=== PATIENT | female | born 1970 | race Caucasian/White ===

== ENCOUNTER 2018-09-10 22:26 | Emergency (ER) | payer MEDICAID ==
[2018-09-10 23:16] VITALS: BP 180/97
[2018-09-11] MEDS ORDERED: BSS OU ONE (00:18)
[2018-09-11] MEDS ORDERED: TETRACAINE 0.5% OU ONE (00:18)
[2018-09-11] MEDS ORDERED: FUL-GLO OP ONE ×2 (00:18→00:25)
[2018-09-11] MEDS ORDERED: BSS ONE (00:25)
[2018-09-11] MEDS ORDERED: TETRACAINE 0.5% ONE (00:25)
--- NOTE | 2018-09-11 00:29 | Emergency Department Report ---
ED Eye Problem HPI - General Chief complaint: Eye Problems Stated complaint: EYE PAIN Time Seen by Provider: 09/11/18 00:10 Source: patient Mode of arrival: Ambulatory Limitations: No Limitations - History of Present Illness MD chief complaint: eye pain -: hour(s) (10) Location: right eye If Injury: none Eye Symptoms: redness, pain Severity: mild, moderate If Pain, Quality: aching Consistency: constant Associated Symptoms: none Treatments Prior to Arrival: none - Related Data Previous Rx's Medication Instructions Recorded Last Taken Type Ketorolac Tromethamine [Acular] 1 - 2 drops OS Q6H PRN #1 bottle 09/11/18 Unknown Rx Tobramycin [Tobrex] 1 drop OP Q4H #1 bottle 09/11/18 Unknown Rx Allergies Allergy/AdvReac Type Severity Reaction Status Date / Time Penicillins Allergy Itching Verified 09/10/18 23:16 ED Review of Systems ROS: Stated complaint: EYE PAIN Other details as noted in HPI Constitutional: denies: chills, fever Eyes: eye pain. denies: eye discharge, vision change ENT: denies: ear pain, throat pain Respiratory: denies: cough, shortness of breath, wheezing Cardiovascular: denies: chest pain, palpitations Endocrine: no symptoms reported Gastrointestinal: denies: abdominal pain, nausea, diarrhea Genitourinary: denies: urgency, dysuria, discharge Musculoskeletal: denies: back pain, joint swelling, arthralgia Skin: denies: rash, lesions Neurological: denies: headache, weakness, paresthesias Psychiatric: denies: anxiety, depression Hematological/Lymphatic: denies: easy bleeding, easy bruising ED Past Medical Hx - Past Medical History Hx Hypertension: Yes Hx Diabetes: Yes - Surgical History Additional Surgical History: Hysterectomy - Social History Smoking Status: Never Smoker Substance Use Type: None - Medications Home Medications: Home Medications Medication Instructions Recorded Confirmed Last Taken Type Ketorolac Tromethamine [Acular] 1 - 2 drops OS Q6H PRN #1 bottle 09/11/18 Unknown Rx Tobramycin [Tobrex] 1 drop OP Q4H #1 bottle 09/11/18 Unknown Rx ED Physical Exam - General Limitations: No Limitations General appearance: alert, in no apparent distress - Head Head exam: Present: atraumatic, normocephalic - Eye Eye exam: Present: normal appearance, PERRL, EOMI Pupils: Present: normal accommodation, other (increased dosing of uptake to the right. I area with the edge of the contact would be going from 3:00 to 9:00 lower aspect of the. The small area of corneal abrasion was obtained to proximal aspect of the iris as well. Normal left blepharitis. No foreign bodies were appreciated.) - ENT ENT exam: Present: normal exam, mucous membranes moist, TM's normal bilaterally - Neck Neck exam: Present: normal inspection, full ROM. Absent: lymphadenopathy, thyromegaly - Respiratory Respiratory exam: Present: normal lung sounds bilaterally. Absent: respiratory distress, rales, rhonchi, chest wall tenderness, accessory muscle use - Cardiovascular Cardiovascular Exam: Present: regular rate, normal rhythm. Absent: systolic murmur, diastolic murmur, rubs, gallop - GI/Abdominal GI/Abdominal exam: Present: soft, normal bowel sounds - Extremities Exam Extremities exam: Present: normal inspection - Back Exam Back exam: Present: normal inspection - Neurological Exam Neurological exam: Present: alert, oriented X3 - Psychiatric Psychiatric exam: Present: normal affect, normal mood - Skin Skin exam: Present: warm, dry, intact, normal color. Absent: rash ED Course Vital Signs 09/10/18 09/10/18 22:30 23:10 Temperature 98.1 F 98.1 F Pulse Rate 91 H 78 Respiratory 18 18 Rate Blood Pressure 196/105 180/97 O2 Sat by Pulse 100 100 Oximetry Critical care attestation.: If time is entered above; I have spent that time in minutes in the direct care of this critically ill patient, excluding procedure time. ED Disposition Clinical Impression: Corneal abrasion Disposition: -01 TO HOME OR SELFCARE Is pt being admited?: No Does the pt Need Aspirin: No Condition: Stable Instructions: Corneal Abrasion (ED) Referrals: PRIMARY CARE, [Primary Care Provider] - 3-5 Days SHANE MARTIN MD [Staff Physician] - [facility]
== END 2018-09-11 01:13 | disposition home or self-care (01) ==
LOC: ED 22:26
DX: S05.01XA Injury of conjunctiva and corneal abrasion without foreign body, right eye, initial encounter (principal); I10 Essential (primary) hypertension; E11.9 Type 2 diabetes mellitus without complications; X58.XXXA Exposure to other specified factors, initial encounter; Y93.89 Activity, other specified; Y92.89 Other specified places as the place of occurrence of the external cause; Y99.8 Other external cause status

== ENCOUNTER 2018-11-02 11:00 | Emergency (ER) | payer MEDICAID ==
--- NOTE | 2018-11-02 11:09 | Emergency Department Report ---
Blank Doc - Documentation Documentation: This is a 53-year-old female that presents with right lower abdominal pain with nausea x1 day. Denies any vomiting. This initial assessment/diagnostic orders/clinical plan/treatment(s) is/are subject to change based on patient's health status, clinical progression and re-assessment by fellow clinical providers in the ED. Further treatment and workup at subsequent clinical providers discretion. Patient/guardians urged not to elope from the ED as their condition may be serious if not clinically assessed and managed. Initial orders include: 1- Patient sent to [facility] for further evaluation and treatment 2- labs 3- ua
--- NOTE | 2018-11-02 11:59 | Emergency Department Report ---
ED Abdominal Pain HPI - General Chief Complaint: Abdominal Pain Stated Complaint: RT SIDE INJURY/PAIN Time Seen by Provider: 11/02/18 11:08 Source: patient Mode of arrival: Ambulatory Limitations: No Limitations - History of Present Illness Initial Comments: This is a 48-year-old female presents with right sided abdominal pain since last night. Patient also reports a headache, nausea, and weakness. She reports pain as a burning sensation to the right side of abdomen leading to right thigh. Past medical history of diabetes and hypertension. Denies chest pain, urinary frequency, urgency, dysuria, hematuria, vaginal discharge or vaginal bleeding, or pelvic pain. MD Complaint: abdominal pain Onset/Timin -: days(s) Location: RUQ, RLQ Radiation: other (RLE) Severity scale (0 -10): 5 Quality: burning Consistency: constant Improves With: nothing Worsens With: nothing Associated Symptoms: nausea. denies: vomiting, diarrhea, fever, chills, constipation, dysuria, hematemesis, hematochezia, melena, hematuria, anorexia, syncope - Related Data Previous Rx's Medication Instructions Recorded Last Taken Type Ketorolac Tromethamine [Acular] 1 - 2 drops OS Q6H PRN #1 bottle 09/11/18 Unknown Rx Tobramycin [Tobrex] 1 drop OP Q4H #1 bottle 09/11/18 Unknown Rx Enalapril Maleate [Vasotec] 20 mg PO DAILY #30 tablet 11/02/18 Unknown Rx Phenazopyridine [Pyridium] 200 mg PO TID #6 tab 11/02/18 Unknown Rx Sulfamethoxazole/Trimethoprim 1 each PO BID #6 tablet 11/02/18 Unknown Rx [Bactrim DS TAB] Allergies Allergy/AdvReac Type Severity Reaction Status Date / Time Penicillins Allergy Itching Verified 11/02/18 11:02 ED Review of Systems ROS: Stated complaint: RT SIDE INJURY/PAIN Other details as noted in HPI Constitutional: denies: chills, fever Respiratory: denies: cough, shortness of breath, wheezing Cardiovascular: denies: chest pain, palpitations Gastrointestinal: abdominal pain, nausea. denies: vomiting, diarrhea Genitourinary: denies: urgency, dysuria, discharge Musculoskeletal: arthralgia (right thigh). denies: back pain, joint swelling Skin: denies: rash, lesions Neurological: denies: headache, weakness, paresthesias ED Past Medical Hx - Past Medical History Previous Medical History?: Yes Hx Hypertension: Yes Hx Diabetes: Yes - Surgical History Past Surgical History?: Yes Additional Surgical History: Hysterectomy - Social History Smoking Status: Never Smoker Substance Use Type: None - Medications Home Medications: Home Medications Medication Instructions Recorded Confirmed Last Taken Type Ketorolac Tromethamine [Acular] 1 - 2 drops OS Q6H PRN #1 bottle 09/11/18 Unknown Rx Tobramycin [Tobrex] 1 drop OP Q4H #1 bottle 09/11/18 Unknown Rx Enalapril Maleate [Vasotec] 20 mg PO DAILY #30 tablet 11/02/18 Unknown Rx Phenazopyridine [Pyridium] 200 mg PO TID #6 tab 11/02/18 Unknown Rx Sulfamethoxazole/Trimethoprim 1 each PO BID #6 tablet 11/02/18 Unknown Rx [Bactrim DS TAB] ED Physical Exam - General Limitations: No Limitations General appearance: alert, in no apparent distress - Respiratory Respiratory exam: Present: normal lung sounds bilaterally. Absent: respiratory distress - Cardiovascular Cardiovascular Exam: Present: regular rate, normal rhythm. Absent: systolic murmur, diastolic murmur, rubs, gallop - GI/Abdominal GI/Abdominal exam: Present: soft, tenderness (right lower quadrant and left lower quadrant, and no ecchymosis), normal bowel sounds. Absent: distended, guarding, rebound, rigid, organomegaly, mass, bruit, pulsatile mass, hernia - Back Exam Back exam: Absent: CVA tenderness (R), CVA tenderness (L) - Neurological Exam Neurological exam: Present: alert, oriented X3, normal gait - Psychiatric Psychiatric exam: Present: normal affect, normal mood - Skin Skin exam: Present: warm, dry, intact, normal color. Absent: rash ED Course Vital Signs 11/02/18 11/02/18 11/02/18 11:07 13:15 13:35 Temperature 98.1 F Pulse Rate 74 Respiratory 16 16 16 Rate Blood Pressure 199/94 Blood Pressure [Right] O2 Sat by Pulse 99 Oximetry 11/02/18 11/02/18 11/02/18 14:05 14:57 15:50 Temperature Pulse Rate 62 Respiratory 16 Rate Blood Pressure 204/101 Blood Pressure 183/87 [Right] O2 Sat by Pulse Oximetry ED Medical Decision Making - Lab Data Result diagrams: 11/02/18 11:19 11/02/18 11:19 Lab Results 11/02/18 11/02/18 11/02/18 Range/Units 11:19 11:19 11:31 WBC 4.9 (4.5-11.0) K/mm3 RBC 5.38 H (3.65-5.03) M/mm3 Hgb 14.4 H (10.1-14.3) gm/dl Hct 43.0 H (30.3-42.9) % MCV 80 (79-97) fl MCH 27 L (28-32) pg MCHC 34 (30-34) % RDW 13.4 (13.2-15.2) % Plt Count 260 (140-440) K/mm3 Lymph % (Auto) 35.5 H (13.4-35.0) % Reagan % (Auto) 4.7 (0.0-7.3) % Eos % (Auto) 1.4 (0.0-4.3) % Baso % (Auto) 0.4 (0.0-1.8) % Lymph # 1.8 (1.2-5.4) K/mm3 Reagan # 0.2 (0.0-0.8) K/mm3 Eos # 0.1 (0.0-0.4) K/mm3 Baso # 0.0 (0.0-0.1) K/mm3 Seg Neutrophils % 58.0 (40.0-70.0) % Seg Neutrophils # 2.9 (1.8-7.7) K/mm3 Sodium 140 (137-145) mmol/L Potassium 3.6 (3.6-5.0) mmol/L Chloride 99.5 (98-107) mmol/L Carbon Dioxide 29 (22-30) mmol/L Anion Gap 15 mmol/L BUN 9 (7-17) mg/dL Creatinine 0.5 L (0.7-1.2) mg/dL Estimated GFR > 60 ml/min BUN/Creatinine Ratio 18 % Glucose 331 H (65-100) mg/dL POC Glucose (70-105) Calcium 9.6 (8.4-10.2) mg/dL Total Bilirubin 0.20 (0.1-1.2) mg/dL Direct Bilirubin < 0.2 (0-0.2) mg/dL AST 16 (5-40) units/L ALT 18 (7-56) units/L Alkaline Phosphatase 135 H (35-129) units/L Total Protein 6.7 (6.3-8.2) g/dL Albumin 3.9 (3.9-5) g/dL Albumin/Globulin Ratio 1.4 % Lipase 120 H (13-60) units/L Urine Color Marilee (Yellow) Urine Turbidity Cloudy (Clear) Urine pH 6.0 (5.0-7.0) Ur Specific [place] 1.029 (1.003-1.030) Urine Protein 30 mg/dl (Negative) mg/dL Urine Glucose (UA) >=500 (Negative) mg/dL Urine Ketones Neg (Negative) mg/dL Urine Blood Neg (Negative) Urine Nitrite Pos (Negative) Ur Reducing Substances Not Reportable Urine Bilirubin Neg (Negative) Urine Ictotest Not Reportable Urine Urobilinogen < 2.0 (<2.0) mg/dL Ur Leukocyte Esterase Tr (Negative) Urine WBC (Auto) 13.0 H (0.0-6.0) /HPF Urine RBC (Auto) 1.0 (0.0-6.0) /HPF U Epithel Cells (Auto) 2.0 (0-13.0) /HPF Urine Mucus Few /HPF Urine HCG, Qual Negative (Negative) 11/02/18 Range/Units 13:37 WBC (4.5-11.0) K/mm3 RBC (3.65-5.03) M/mm3 Hgb (10.1-14.3) gm/dl Hct (30.3-42.9) % MCV (79-97) fl MCH (28-32) pg MCHC (30-34) % RDW (13.2-15.2) % Plt Count (140-440) K/mm3 Lymph % (Auto) (13.4-35.0) % Reagan % (Auto) (0.0-7.3) % Eos % (Auto) (0.0-4.3) % Baso % (Auto) (0.0-1.8) % Lymph # (1.2-5.4) K/mm3 Reagan # (0.0-0.8) K/mm3 Eos # (0.0-0.4) K/mm3 Baso # (0.0-0.1) K/mm3 Seg Neutrophils % (40.0-70.0) % Seg Neutrophils # (1.8-7.7) K/mm3 Sodium (137-145) mmol/L Potassium (3.6-5.0) mmol/L Chloride (98-107) mmol/L Carbon Dioxide (22-30) mmol/L Anion Gap mmol/L BUN (7-17) mg/dL Creatinine (0.7-1.2) mg/dL Estimated GFR ml/min BUN/Creatinine Ratio % Glucose (65-100) mg/dL POC Glucose 277 H (70-105) Calcium (8.4-10.2) mg/dL Total Bilirubin (0.1-1.2) mg/dL Direct Bilirubin (0-0.2) mg/dL AST (5-40) units/L ALT (7-56) units/L Alkaline Phosphatase (35-129) units/L Total Protein (6.3-8.2) g/dL Albumin (3.9-5) g/dL Albumin/Globulin Ratio % Lipase (13-60) units/L Urine Color (Yellow) Urine Turbidity (Clear) Urine pH (5.0-7.0) Ur Specific [place] (1.003-1.030) Urine Protein (Negative) mg/dL Urine Glucose (UA) (Negative) mg/dL Urine Ketones (Negative) mg/dL Urine Blood (Negative) Urine Nitrite (Negative) Ur Reducing Substances Urine Bilirubin (Negative) Urine Ictotest Urine Urobilinogen (<2.0) mg/dL Ur Leukocyte Esterase (Negative) Urine WBC (Auto) (0.0-6.0) /HPF Urine RBC (Auto) (0.0-6.0) /HPF U Epithel Cells (Auto) (0-13.0) /HPF Urine Mucus /HPF Urine HCG, Qual (Negative) - Radiology Data Radiology results: report reviewed CT ABDOMEN PELVIS WITH CONTRAST: HISTORY: Right and left lower quadrant abdominal pain. COMPARISON: none. TECHNIQUE: Helical CT in 1.25mm intervals following IV contrast. Sagittal and coronal reconstructions. FINDINGS: Lung bases: Normal. Liver: Mild diffuse fatty infiltration is noted throughout the liver. No focal liver mass. Biliary system: Cholecystectomy. Pancreas: Normal. Spleen: Normal. Kidneys/ureters/bladder: Normal. Adrenal glands: Normal. Aorta: Normal. Intestines: Within normal limits given no oral contrast was administered. Appendix: Normal. Pelvic viscera: Hysterectomy. No pelvic mass or cyst. Ascites: None. Adenopathy: None. Musculoskeletal: Intact. IMPRESSION: No acute process is identified in the abdomen or pelvis. Surgical changes as described above. Mild hepatic steatosis. - Medical Decision Making This is a 48 y.o. female that presents with right sided abdominal pains since last night. History of DM2 & hypertension. Patient was examined by me in stable. Obtained labs and CT of abdomen and pelvis. Review labs. No acute process is identified in the abdomen or pelvis. Surgical changes as described above. Mild hepatic steatosis. Blood pressure elevated on arrival and increased on reevaluation. Given labetalol 10 mg IV. Patient reports off blood pressure medication for several weeks. Urinalysis positive nitrates and large leukocyte. Patient will be treated for acute cystitis with pyridium and Bactrim. Start enalapril 20 mg by mouth daily. Continue current insulin and metformin. Discussed plan with patient and agreed to plan. No further questions noted by the patient. Discharged home in stable condition. Critical care attestation.: If time is entered above; I have spent that time in minutes in the direct care of this critically ill patient, excluding procedure time. ED Disposition Clinical Impression: Asymptomatic hypertension, Steatosis of liver Abdominal pain Qualifiers: Abdominal location: right upper quadrant Qualified Code(s): R10.11 - Right upper quadrant pain Acute cystitis Qualifiers: Hematuria presence: without hematuria Qualified Code(s): N30.00 - Acute cystitis without hematuria Disposition: - TO HOME OR SELFCARE Is pt being admited?: No Does the pt Need Aspirin: No Condition: Stable Instructions: Abdominal Pain (ED), Hypertension (ED) Additional Instructions: Increase fluid intake to 1L to 2L daily. Complete full course of antibiotics as prescribed. Avoid drinking alcohol while taking antibiotics and for 24 hours after completion. Encourage stop smoking to reduce cardiovascular risk. Moderate caffeine consumption is acceptable. Begin and maintain aerobic exercise, with a goal of at least 30 minutes of moderate intensity, dynamic aerobic exercise (walking, jogging, cycling, or swimming) 5 days per week to total 150 minutes as tolerated or recommended by a physician. Take medication daily as prescribed. Follow up with Primary Care Provider in 1 week. Prescriptions: Sulfamethoxazole/Trimethoprim [Bactrim DS TAB] 1 each PO BID #6 tablet Phenazopyridine [Pyridium] 200 mg PO TID #6 tab Enalapril Maleate [Vasotec] 20 mg PO DAILY #30 tablet Referrals: ARON MATIAS MD [Primary Care Provider] - 3-5 Days Forms: Work/School Release Form(ED) Time of Disposition: 15:50
[2018-11-02 12:03] LABS: HCG Qualitative,Urine Negative (Negative)
[2018-11-02 12:05] LABS: Bilirubin,Urine NEG (Negative); Blood,Urine NEG (Negative); Color,Urine Amber (Yellow); Mucus,Urine FEW /HPF; Urobilinogen,Urine < 2.0 mg/dL (<2.0)
[2018-11-02 12:18] LABS: Basophils % (Auto) 0.4 % (0.0-1.8); Eosinophils # (Auto) 0.1 K/mm3 (0.0-0.4); Eosinophils % (Auto) 1.4 % (0.0-4.3); Hemoglobin 14.4 gm/dl (10.1-14.3); Lymphocytes # (Auto) 1.8 K/mm3 (1.2-5.4); Lymphocytes % (Auto) 35.5 % (13.4-35.0); Mean Corpuscular HGB Conc 34 % (30-34); Mean Corpuscular Volume 80 fl (79-97); Monocytes # (Auto) 0.2 K/mm3 (0.0-0.8); Monocytes % (Auto) 4.7 % (0.0-7.3); Platelet Count 260 K/mm3 (140-440); Red Blood Count 5.38 M/mm3 (3.65-5.03); Red Cell Distribution Width 13.4 % (13.2-15.2)
[2018-11-02 12:41] LABS: Alanine Aminotransferase 18 units/L (7-56); Albumin 3.9 g/dL (3.9-5); BUN/Creatinine Ratio 18; Blood Urea Nitrogen 9 mg/dL (7-17); Calcium 9.6 mg/dL (8.4-10.2); Hemolysis Index 23
[2018-11-02 12:42] LABS: Bilirubin,Direct < 0.2 mg/dL (0-0.2)
[2018-11-02] MEDS ORDERED: MORPHINE IV ONE (13:10)
[2018-11-02] MEDS ORDERED: HumuLIN R IV ONE (13:12)
--- NOTE | 2018-11-02 14:35 | Cat Scan Report ---
CT ABDOMEN PELVIS WITH CONTRAST: HISTORY: Right and left lower quadrant abdominal pain. COMPARISON: none. TECHNIQUE: Helical CT in 1.25mm intervals following IV contrast. Sagittal and coronal reconstructions. FINDINGS: Lung bases: Normal. Liver: Mild diffuse fatty infiltration is noted throughout the liver. No focal liver mass. Biliary system: Cholecystectomy. Pancreas: Normal. Spleen: Normal. Kidneys/ureters/bladder: Normal. Adrenal glands: Normal. Aorta: Normal. Intestines: Within normal limits given no oral contrast was administered. Appendix: Normal. Pelvic viscera: Hysterectomy. No pelvic mass or cyst. Ascites: None. Adenopathy: None. Musculoskeletal: Intact. IMPRESSION: No acute process is identified in the abdomen or pelvis. Surgical changes as described above. Mild hepatic steatosis.
[2018-11-02] MEDS ORDERED: NORMODYNE IV ONE (14:50)
[2018-11-02 15:51] VITALS: BP 183/87
== END 2018-11-02 16:00 | disposition home or self-care (01) ==
LOC: ED 11:00
DX: K76.0 Fatty (change of) liver, not elsewhere classified (principal); I10 Essential (primary) hypertension; N30.00 Acute cystitis without hematuria; E11.9 Type 2 diabetes mellitus without complications; Z90.710 Acquired absence of both cervix and uterus; Z88.0 Allergy status to penicillin
CPT/HCPCS: 36415; 74177; 80048; 80076; 81001; 81025; 82962; 83690; 85025; 96374; 96375; 99284; J2270; Q9967; J1815

== ENCOUNTER 2018-11-07 03:13 | Emergency (ER) | payer MEDICAID ==
[2018-11-07] MEDS ORDERED: NORCO 5/325 PO ONE (03:34)
--- NOTE | 2018-11-07 03:36 | Emergency Department Report ---
<VINI EDWARDS NIKIAAdriana - Last Filed: 11/07/18 03:31> ED Upper Extremity Inj HPI - General Chief Complaint: Extremity Injury, Upper Stated Complaint: RT HAND INJURY Time Seen by Provider: 11/07/18 03:31 Source: patient, family Mode of arrival: Ambulatory Limitations: No Limitations - History of Present Illness Initial Comments: This is a 48-year-old female presents with right wrist pain. Patient states she fell in her bathroom about 25 minutes ago. Patient states she woke fall place and hands out and now experiencing severe pain to her right lateral wrist. Patient states she injured this wrist several years ago had screws placed. She is concerned of possible break. Patient reports swelling and pain worse with movement. States she is able to move fingers but unable to move the wrist. MD Complaint: Injury to:: right, wrist Onset/Timin -: minutes(s) Other Extremity Injury: Wrist: Right Other Injuries: none Handedness: right Place: home Severity scale (0 -10): 10 Improves With: none Worsens With: movement of extremity Context: fall Associated Symptoms: denies other symptoms - Related Data Previous Rx's Medication Instructions Recorded Last Taken Type Ketorolac Tromethamine [Acular] 1 - 2 drops OS Q6H PRN #1 bottle 09/11/18 Unknown Rx Tobramycin [Tobrex] 1 drop OP Q4H #1 bottle 09/11/18 Unknown Rx Enalapril Maleate [Vasotec] 20 mg PO DAILY #30 tablet 11/02/18 Unknown Rx Phenazopyridine [Pyridium] 200 mg PO TID #6 tab 11/02/18 Unknown Rx Sulfamethoxazole/Trimethoprim 1 each PO BID #6 tablet 11/02/18 Unknown Rx [Bactrim DS TAB] Ibuprofen [Motrin 600 MG tab] 600 mg PO Q8H PRN #15 tablet 11/07/18 Unknown Rx Allergies Allergy/AdvReac Type Severity Reaction Status Date / Time Penicillins Allergy Itching Verified 11/02/18 11:02 ED Review of Systems Constitutional: denies: chills, fever Respiratory: denies: cough, shortness of breath, wheezing Cardiovascular: denies: chest pain, palpitations Musculoskeletal: joint swelling (right wrist), arthralgia (right wrist pain). denies: back pain Skin: denies: rash, lesions Neurological: denies: headache, weakness, paresthesias Psychiatric: denies: anxiety, depression ED Past Medical Hx - Past Medical History Previous Medical History?: Yes Hx Hypertension: Yes Hx Diabetes: Yes - Surgical History Past Surgical History?: Yes Additional Surgical History: Hysterectomy. screw to right hand - Social History Smoking Status: Never Smoker Substance Use Type: None - Medications Home Medications: Home Medications Medication Instructions Recorded Confirmed Last Taken Type Ketorolac Tromethamine [Acular] 1 - 2 drops OS Q6H PRN #1 bottle 09/11/18 Unknown Rx Tobramycin [Tobrex] 1 drop OP Q4H #1 bottle 09/11/18 Unknown Rx Enalapril Maleate [Vasotec] 20 mg PO DAILY #30 tablet 11/02/18 Unknown Rx Phenazopyridine [Pyridium] 200 mg PO TID #6 tab 11/02/18 Unknown Rx Sulfamethoxazole/Trimethoprim 1 each PO BID #6 tablet 11/02/18 Unknown Rx [Bactrim DS TAB] Ibuprofen [Motrin 600 MG tab] 600 mg PO Q8H PRN #15 tablet 11/07/18 Unknown Rx ED Physical Exam - General Limitations: No Limitations General appearance: alert, in no apparent distress - Respiratory Respiratory exam: Present: normal lung sounds bilaterally. Absent: respiratory distress - Cardiovascular Cardiovascular Exam: Present: regular rate, normal rhythm. Absent: systolic murmur, diastolic murmur, rubs, gallop - GI/Abdominal GI/Abdominal exam: Present: soft, normal bowel sounds - Expanded Upper Extremity Exam Right Shoulder Exam: Present: normal inspection, full ROM Upper Arm exam: Present: normal inspection, full ROM Elbow exam: Present: normal inspection, full ROM Forearm Wrist exam: Present: tenderness, swelling (swelling and tenderness over the radial head), tenderness over anatomical snuff box, pain with axial thumb loading. Absent: full ROM (Limited range of motion secondary pain), abrasion, laceration, ecchymosis, deformity, crepidus, dislocation, erythema Hand Wrist exam: Present: normal inspection, full ROM Neuro motor exam: Present: wrist extension intact, thumb opposition intact, thumb IP flexion intact, thumb adduction intact, fingers 2-5 abduction intact Neurosensory exam: Present: radial nerve intact, ulnar nerve intact, median nerve intact Vascular: Present: normal capillary refill, radial pulse (+2) - Neurological Exam Neurological exam: Present: alert, oriented X3 - Psychiatric Psychiatric exam: Present: normal affect, normal mood - Skin Skin exam: Present: warm, dry, intact, normal color. Absent: rash ED Disposition Clinical Impression: Chronic wrist pain Qualifiers: Laterality: right Qualified Code(s): M25.531 - Pain in right wrist; G89.29 - Other chronic pain Disposition: - TO HOME OR SELFCARE Condition: Stable Additional Instructions: These take pain medication as needed. Follow-up which are orthopedic surgeon if she continued to have pain and discomfort. Prescriptions: Ibuprofen [Motrin 600 MG tab] 600 mg PO Q8H PRN #15 tablet PRN Reason: Pain Referrals: ARON MATIAS MD [Primary Care Provider] - 3-5 Days you're, orthopedic surgeon [Other] - 3-5 Days Forms: Work/School Release Form(ED) <STEFANI HORNE - Last Filed: 11/07/18 05:26> ED Review of Systems ROS: Stated complaint: RT HAND INJURY Other details as noted in HPI ED Course Vital Signs 11/07/18 11/07/18 03:16 03:44 Temperature 97.9 F Pulse Rate 68 Respiratory 18 20 Rate Blood Pressure 174/90 O2 Sat by Pulse 97 Oximetry ED Medical Decision Making - Radiology Data Radiology results: report reviewed Patient: LISA ROY MR#: [id number] : 1970 Acct:[id number] Age/Sex: 48 / F ADM Date: 11/07/18 Loc: ED Attending Dr: Ordering Physician: LYNNE HOLLAND MD Date of Service: 11/07/18 Procedure(s): XR wrist 3+V RT Accession Number(s): [id number] cc: LYNNE HOLLAND MD Fluoro Time In Minutes: PROCEDURE: XR WRIST 3+V RT TECHNIQUE: 3 views of the right wrist were submitted. HISTORY: fall with wrist pain and swelling COMPARISONS: None FINDINGS: There is a threaded screw within the waist of the navicular from previous ORIF. There is no evidence of acute fracture or soft tissue injury otherwise. There is mild narrowing of the radiocarpal joint. The soft tissues do not show any acute changes. IMPRESSION: Previous ORIF for navicular fracture. No acute fracture identified. 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 This document is electronically signed by Keshawn Palacios MD., November 07 2018 05:14:23 AM ET Transcribed By: RB Dictated By: KESHAWN PALACIOS MD Electronically Authenticated By: KESHAWN PALACIOS MD Signed Date/Time: 11/07/18515 DD/ 8 TD/TT: 11/07/18508 - Medical Decision Making Patient has been evaluated by this provider and [facility]. X-ray of wrist shows no acute fractures shows a previous ORIF. Patient be discharged home to take Tylenol or Motrin for pain management. Critical care attestation.: If time is entered above; I have spent that time in minutes in the direct care of this critically ill patient, excluding procedure time. ED Disposition Is pt being admited?: No Does the pt Need Aspirin: No
--- NOTE | 2018-11-07 05:16 | XRay Report ---
PROCEDURE: XR WRIST 3+V RT TECHNIQUE: 3 views of the right wrist were submitted. HISTORY: fall with wrist pain and swelling COMPARISONS: None FINDINGS: There is a threaded screw within the waist of the navicular from previous ORIF. There is no evidence of acute fracture or soft tissue injury otherwise. There is mild narrowing of the radiocarpal joint. The soft tissues do not show any acute changes. IMPRESSION: Previous ORIF for navicular fracture. No acute fracture identified. 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 This document is electronically signed by Shon Palacios MD., November 07 2018 05:14:23 AM ET
[2018-11-07 05:49] VITALS: BP 155/87
== END 2018-11-07 05:30 | disposition home or self-care (01) ==
LOC: ED 03:13
DX: M25.531 Pain in right wrist (principal); G89.29 Other chronic pain; I10 Essential (primary) hypertension; E11.9 Type 2 diabetes mellitus without complications; Z90.710 Acquired absence of both cervix and uterus; Z88.0 Allergy status to penicillin; W18.11XA Fall from or off toilet without subsequent striking against object, initial encounter; Y93.89 Activity, other specified; Y92.091 Bathroom in other non-institutional residence as the place of occurrence of the external cause; Y99.8 Other external cause status
CPT/HCPCS: 99284

== ENCOUNTER 2019-01-07 02:57 | Emergency (ER) | payer MEDICAID ==
[2019-01-07 03:12] VITALS: BP 171/94
== END 2019-01-07 07:12 | disposition left against medical advice (07) ==
LOC: ED 02:57
DX: H92.02 Otalgia, left ear (principal); Z53.21 Procedure and treatment not carried out due to patient leaving prior to being seen by health care provider

== ENCOUNTER 2019-01-24 20:05 | Emergency (ER) | payer MEDICAID ==
--- NOTE | 2019-01-24 20:47 | Emergency Department Report ---
Blank Doc - Documentation Documentation: This is a 48-year-old female that chest pain. Denies any radiation or SOB. A lso has right 5th toe pain s/p hitting toe. This initial assessment/diagnostic orders/clinical plan/treatment(s) is/are subject to change based on patient's health status, clinical progression and re- assessment by fellow clinical providers in the ED. Further treatment and workup at subsequent clinical providers discretion. Patient/guardians urged not to elope from the ED as their condition may be serious if not clinically assessed and managed. Initial orders include: 1- Patient sent to [facility] for further evaluation and treatment 2- EKG 3- Labs 4- xrays
[2019-01-24 21:44] LABS: Basophils % (Auto) 0.5 % (0.0-1.8); Eosinophils # (Auto) 0.1 K/mm3 (0.0-0.4); Eosinophils % (Auto) 1.5 % (0.0-4.3); Hematocrit 41.9 % (30.3-42.9); Hemoglobin 13.9 gm/dl (10.1-14.3); Lymphocytes # (Auto) 2.1 K/mm3 (1.2-5.4); Lymphocytes % (Auto) 37.6 % (13.4-35.0); Mean Corpuscular HGB Conc 33 % (30-34); Mean Corpuscular Volume 80 fl (79-97); Monocytes # (Auto) 0.3 K/mm3 (0.0-0.8); Monocytes % (Auto) 5.2 % (0.0-7.3); Platelet Count 259 K/mm3 (140-440); Red Blood Count 5.26 M/mm3 (3.65-5.03); Red Cell Distribution Width 13.7 % (13.2-15.2)
--- NOTE | 2019-01-24 21:55 | XRay Report ---
PROCEDURE: XR CHEST ROUTINE 2V TECHNIQUE: PA and lateral chest radiographs were obtained. HISTORY: Chest Pain COMPARISONS: None. FINDINGS: Heart: Normal. Mediastinum/Vessels: Normal. Lungs/Pleural space: Normal. Bony thorax: No acute osseous abnormality. IMPRESSION: Normal examination. This document is electronically signed by Dony Cook MD., Jan 24 2019 09:53:03 PM ET
[2019-01-24 21:57] LABS: INR 0.86 (0.87-1.13)
[2019-01-24 21:58] LABS: Partial Thromboplastin Time 24.2 Sec. (24.2-36.6)
[2019-01-24 22:18] LABS: BUN/Creatinine Ratio 22; Blood Urea Nitrogen 11 mg/dL (7-17); Calcium 9.6 mg/dL (8.4-10.2); Hemolysis Index 5
--- NOTE | 2019-01-24 22:34 | XRay Report ---
PROCEDURE: XR FOOT 3+V RT TECHNIQUE: Right foot radiographs, AP, lateral, and oblique views. HISTORY: foot pain COMPARISONS: None . FINDINGS: Fracture (s) and/or Dislocation(s): None . Alignment: Normal . Joint space(s): Normal . Soft tissues: Normal . Bone mineralization: Normal . Foreign bodies: None . Calcaneal spurring: None . IMPRESSION: Normal Examination . This document is electronically signed by Luis Enrique Valdes MD., Jan 24 2019 10:32:28 PM ET
--- NOTE | 2019-01-24 23:18 | Emergency Department Report ---
ED Chest Pain HPI - General Chief Complaint: Chest Pain Stated Complaint: HEADACHE CHEST PAIN 5TH TOE PAIN Time Seen by Provider: 01/24/19 20:46 Source: patient Mode of arrival: Ambulatory Limitations: No Limitations - History of Present Illness Initial Comments: This is a 48-year-old female with hx of DM II, HTN, x smoker 20 pack yr, that presents for chest pain left lateral radiating to left arm x 2 days, there is associated sinus pain and pressure that radiates to left are, and non productive cough,. pt denies diaphoresis no n/v no back pain , Also has right 5th toe pain s/p hitting toe. MD Complaint: chest pain Onset/Timin -: days(s) Onset: during rest Pain Location: left chest Pain Radiation: LUE Severity: moderate Severity scale (0 -10): 5 Quality: aching Consistency: intermittent Improves With: nothing Worsens With: nothing re: denies: nausea, vomting, diaphoresis, dyspnea, sense of impending doom Other Symptoms: cough. denies: fever, syncope, rash, leg swelling, palpitations Treatments Prior to Arrival: none - Related Data Previous Rx's Medication Instructions Recorded Last Taken Type Ketorolac Tromethamine [Acular] 1 - 2 drops OS Q6H PRN #1 bottle 09/11/18 Unknown Rx Tobramycin [Tobrex] 1 drop OP Q4H #1 bottle 09/11/18 Unknown Rx Enalapril Maleate [Vasotec] 20 mg PO DAILY #30 tablet 11/02/18 Unknown Rx Phenazopyridine [Pyridium] 200 mg PO TID #6 tab 11/02/18 Unknown Rx Sulfamethoxazole/Trimethoprim 1 each PO BID #6 tablet 11/02/18 Unknown Rx [Bactrim DS TAB] Ibuprofen [Motrin 600 MG tab] 600 mg PO Q8H PRN #15 tablet 01/12/19 Unknown Rx Clindamycin [Clindamycin CAP] 300 mg PO Q8H #10 cap 01/24/19 Unknown Rx Ibuprofen [Motrin 800 MG tab] 800 mg PO Q8HR PRN #30 tablet 01/24/19 Unknown Rx Allergies Allergy/AdvReac Type Severity Reaction Status Date / Time Penicillins Allergy Itching Verified 11/02/18 11:02 Heart Score - HEART Score History: Slightly suspicious EKG: Normal Age: 45-65 Risk factors: No known risk factors Troponin: < normal limit HEART Score: 1 ED Review of Systems ROS: Stated complaint: HEADACHE CHEST PAIN 5TH TOE PAIN Other details as noted in HPI Constitutional: denies: chills, fever Eyes: denies: eye pain, eye discharge, vision change ENT: ear pain, congestion. denies: throat pain Respiratory: denies: cough, shortness of breath, wheezing Cardiovascular: chest pain. denies: palpitations, edema, paroxysmal nocturnal dyspnea Endocrine: no symptoms reported Gastrointestinal: denies: abdominal pain, nausea, diarrhea Genitourinary: denies: urgency, dysuria, discharge Musculoskeletal: other (right pinky toe pain ). denies: back pain, joint swelli ng, arthralgia Skin: denies: rash, lesions Neurological: denies: headache, weakness, paresthesias Psychiatric: denies: anxiety, depression Hematological/Lymphatic: denies: easy bleeding, easy bruising ED Past Medical Hx - Past Medical History Hx Hypertension: Yes Hx Diabetes: Yes Additional medical history: elevated cholesterol - Surgical History Additional Surgical History: Hysterectomy. screw to right hand - Social History Smoking Status: Never Smoker Substance Use Type: None - Medications Home Medications: Home Medications Medication Instructions Recorded Confirmed Last Taken Type Ketorolac Tromethamine [Acular] 1 - 2 drops OS Q6H PRN #1 bottle 09/11/18 Unknown Rx Tobramycin [Tobrex] 1 drop OP Q4H #1 bottle 09/11/18 Unknown Rx Enalapril Maleate [Vasotec] 20 mg PO DAILY #30 tablet 11/02/18 Unknown Rx Phenazopyridine [Pyridium] 200 mg PO TID #6 tab 11/02/18 Unknown Rx Sulfamethoxazole/Trimethoprim 1 each PO BID #6 tablet 11/02/18 Unknown Rx [Bactrim DS TAB] Ibuprofen [Motrin 600 MG tab] 600 mg PO Q8H PRN #15 tablet 01/12/19 Unknown Rx Clindamycin [Clindamycin CAP] 300 mg PO Q8H #10 cap 01/24/19 Unknown Rx Ibuprofen [Motrin 800 MG tab] 800 mg PO Q8HR PRN #30 tablet 01/24/19 Unknown Rx ED Physical Exam - General Limitations: No Limitations General appearance: alert, in no apparent distress - Head Head exam: Present: atraumatic, normocephalic - Eye Eye exam: Present: normal appearance, PERRL, EOMI Pupils: Present: normal accommodation - ENT ENT exam: Present: mucous membranes moist, TM's normal bilaterally - Expanded ENT Exam Expanded Ear exam: Present: normal external inspection TM/Canal exam: Erythema: Left TM, Canal Tenderness: Left TM Mouth exam: Present: normal external inspection. Absent: trismus Teeth exam: Present: normal inspection Throat exam: Positive: normal inspection, tonsillar erythema, tonsillomegaly, other (uvula midline no exudate no lesion no stridor ). Negative: tonsillar exudate, R peritonsillar mass, L peritonsillar mass - Neck Neck exam: Present: normal inspection, full ROM. Absent: tenderness, lymphadenopathy, thyromegaly - Respiratory Respiratory exam: Present: normal lung sounds bilaterally, chest wall tenderness (leftl lateral chest wall tenderness to deep palpation ). Absent: respiratory distress, wheezes, rales, rhonchi, stridor, prolonged expiratory - Cardiovascular Cardiovascular Exam: Present: regular rate, normal rhythm. Absent: systolic murmur, diastolic murmur, rubs, gallop - GI/Abdominal GI/Abdominal exam: Present: soft, normal bowel sounds. Absent: distended, tenderness, guarding, rebound, bruit, hernia - Rectal Rectal exam: Present: deferred - Extremities Exam Extremities exam: Present: normal inspection, full ROM, tenderness (right 5th toe ), normal capillary refill. Absent: pedal edema, joint swelling, calf tenderness - Expanded Lower Extremity Exam Right Foot/Toe exam: Present: full ROM, tenderness (pinky toe ), tenderness at base of 5th metatarsal. Absent: swelling, abrasion, laceration, ecchymosis, deformity, crepidus, dislocation, erythema, amputation, puncture wound, foreign body, calcaneal tenderness, nail avulsion, subungual hematoma Neuro vascular tendon exam: Present: no vascular compromise. Absent: motor deficit, sensory deficit, tendon deficit, peroneal nerve deficit Gait: Positive: observed and normal - Back Exam Back exam: Present: normal inspection, full ROM, muscle spasm. Absent: tenderness, CVA tenderness (R), CVA tenderness (L), rash noted - Neurological Exam Neurological exam: Present: alert, oriented X3, CN II-XII intact, normal gait, reflexes normal - Psychiatric Psychiatric exam: Present: normal affect, normal mood - Skin Skin exam: Present: warm, dry, normal color ED Course Vital Signs 01/24/19 20:13 Temperature 97.7 F Pulse Rate 62 Respiratory 18 Rate Blood Pressure 179/88 O2 Sat by Pulse 98 Oximetry JESUS score - Jesus Score Age > 65: (0) No Aspirin use within the Past 7 Days: (0) No 3 or more CAD Risk Factors: (0) No 2 or more Angina events in past 24 hrs: (0) No Known CAD with more than 50% Stenosis: (0) No Elevated Cardiac Markers: (0) No ST Deviation Greater than 0.5mm: (0) No JESUS Score: 0 ED Medical Decision Making - Lab Data Result diagrams: 01/24/19 21:13 01/24/19 21:13 - Radiology Data Radiology results: report reviewed, image reviewed Ordering Physician: GIRMA EVANS NP Date of Service: 01/24/19 Procedure(s): XR chest routine 2V Accession Number(s): [id number] cc: GIRMA EVANS NP Fluoro Time In Minutes: PROCEDURE: XR CHEST ROUTINE 2V TECHNIQUE: PA and lateral chest radiographs were obtained. HISTORY: Chest Pain COMPARISONS: None. FINDINGS: Heart: Normal. Mediastinum/Vessels: Normal. Lungs/Pleural space: Normal. Bony thorax: No acute osseous abnormality. IMPRESSION: Normal examination. This document is electronically signed by Dony Ward MD., Jan 24 2019 09:53:03 PM ET Transcribed By: HJ Dictated By: DONY WARD MD Electronically Authenticated By: DONY WARD MD Signed Date/Time: 01/24/192154 DD/ 37 TD/TT: 01/24/192137 Ordering Physician: GIRMA EVANS NP Date of Service: 01/24/19 Procedure(s): XR foot 3+V RT Accession Number(s): [id number] cc: GIRMA EVANS NP Fluoro Time In Minutes: PROCEDURE: XR FOOT 3+V RT TECHNIQUE: Right foot radiographs, AP, lateral, and oblique views. HISTORY: foot pain COMPARISONS: None . FINDINGS: Fracture (s) and/or Dislocation(s): None . Alignment: Normal . Joint space(s): Normal . Soft tissues: Normal . Bone mineralization: Normal . Foreign bodies: None . Calcaneal spurring: None . IMPRESSION: Normal Examination . This document is electronically signed by Luis Enrique Anthony MD., Jan 24 2019 10:32:28 PM ET Transcribed By: CO Dictated By: LUIS ENRIQUE ANTHONY MD Electronically Authenticated By: LUIS ENRIQUE ANTHONY MD Signed Date/Time: 01/24/192233 DD/ 36 TD/TT: 01/24/192136 - Medical Decision Making cxr is normal no infiltrates no opacitie, foot xray is normal no fracture no soft tissue abnormality, ekg: nsr no st elevated mi, interp by ed attending, heart score ie 1, JESUS score is 0, this is chest wall pain , ent: left tm erythema pain , bilat maxilary sinus pain to palpation, plan: augmentin, ibuprofen, follow up with pcp in 2-3 days , hear Critical care attestation.: If time is entered above; I have spent that time in minutes in the direct care of this critically ill patient, excluding procedure time. ED Disposition Clinical Impression: Chest wall pain AOM (acute otitis media) Qualifiers: Otitis media type: serous Laterality: left Recurrence: non-recurrent Qualified Code(s): H65.02 - Acute serous otitis media, left ear Sprain of toe, fifth, right Qualifiers: Encounter type: initial encounter Qualified Code(s): S93.504A - Unspecified sprain of right lesser toe(s), initial encounter Disposition: - TO HOME OR SELFCARE Is pt being admited?: No Does the pt Need Aspirin: No Condition: Stable Instructions: Costochondritis (ED), Otitis Media (ED), Foot Sprain (ED) Prescriptions: Clindamycin [Clindamycin CAP] 300 mg PO Q8H #10 cap Ibuprofen [Motrin 800 MG tab] 800 mg PO Q8HR PRN #30 tablet PRN Reason: pain Referrals: PRIMARY CARE, [Primary Care Provider] - 3-5 Days Forms: Work/School Release Form(ED) Time of Disposition: 23:44
[2019-01-25 00:24] VITALS: BP 195/90
== END 2019-01-25 00:23 | disposition home or self-care (01) ==
LOC: ED 20:05
DX: S93.504A Unspecified sprain of right lesser toe(s), initial encounter (principal); H65.02 Acute serous otitis media, left ear; R07.89 Other chest pain; E11.9 Type 2 diabetes mellitus without complications; I10 Essential (primary) hypertension; F17.200 Nicotine dependence, unspecified, uncomplicated; E78.00 Pure hypercholesterolemia, unspecified; Z90.710 Acquired absence of both cervix and uterus; Z88.0 Allergy status to penicillin; W22.8XXA Striking against or struck by other objects, initial encounter; Y93.89 Activity, other specified; Y92.89 Other specified places as the place of occurrence of the external cause; Y99.8 Other external cause status
CPT/HCPCS: 36415; 71046; 80048; 84484; 85025; 85610; 85730; 93005; 93010; 99284

== ENCOUNTER 2019-05-05 19:57 | Emergency (ER) | payer MEDICAID ==
[2019-05-05 20:52] VITALS: BP 188/92
--- NOTE | 2019-05-05 20:53 | Event Note ---
ED Screening Note Date of service: 05/05/19 Time: 20:49 ED Screening Note: 49 y o f presents with throat ear and nasal pain with coughing x 2 days This initial assessment/diagnostic orders/clinical plan/treatment(s) is/are subject to change based on patients health status, clinical progression and re- assessment by fellow clinical providers in the ED. Further treatment and workup at subsequent clinical providers discretion. Patient/guardian urged not to elope from the ED as their condition may be serious if not clinically assessed and managed. Initial orders include: cxr
--- NOTE | 2019-05-05 21:21 | XRay Report ---
CHEST 2 VIEWS, 05/05/2019 at 911 INDICATION: Cough. COMPARISON: Chest radiograph, 01/24/2019 FINDINGS: Support devices: None Heart: The heart is normal in size. Lungs/pleura: The lungs are clear of focal airspace disease or significant pleural effusion. Additional findings: No additional acute findings. IMPRESSION: 1. No evidence of acute cardiopulmonary process. Signer Name: Lakesha Diaz MD Signed: 05/05/2019 9:17 PM Workstation Name: [id number]
[2019-05-05] MEDS ORDERED: DELTASONE PO ONE (21:48)
[2019-05-05] MEDS ORDERED: IBUPROFEN PO ONE (21:48)
--- NOTE | 2019-05-05 21:53 | Emergency Department Report ---
- General Chief Complaint: Sore Throat Stated Complaint: SORE THOAT Time Seen by Provider: 05/05/19 20:49 Source: patient Mode of arrival: Ambulatory Limitations: No Limitations - History of Present Illness Initial Comments: Patient is a 49-year-old female with no past medical history who presents to the ED with c/o acute onset persistent frontal sinus pressure and headache, nasal and sinus congestion, sore throat, dry cough, pleuritic chest wall pain, and left ear pain for the last 2 days. Patient denies dizziness, syncope, chest pain, shortness of breath, wheezing, change in vision, abdominal pain, nausea and vomiting or diarrhea, dysuria or urinary frequency and urgency and neck pain. Patient states that she has been taking [id number] decongestants with no relief. MD Complaint: cough, sore throat, rhinorrhea, nasal congestion, sinus pain, other (LEFT EAR PAIN) -: Sudden, days(s) (2) Severity: severe Severity scale (0 -10): 7 Quality: sharp, aching Consistency: constant Worsens With: nothing Context: sick contacts Associated Symptoms: denies other symptoms, headache, rhinorrhea, nasal congestion, sore throat, cough. denies: fever, chills, myalgias, diaphoresis, stiff neck, chest pain, shortness of breath, abdominal pain, nausea, vomiting, diarrhea, dysuria, rash, right sweats, weight loss, hoarseness, ear pain Treatments Prior to Arrival: none - Related Data Previous Rx's Medication Instructions Recorded Last Taken Type Ketorolac Tromethamine [Acular] 1 - 2 drops OS Q6H PRN #1 bottle 09/11/18 Unknown Rx Tobramycin [Tobrex] 1 drop OP Q4H #1 bottle 09/11/18 Unknown Rx Enalapril Maleate [Vasotec] 20 mg PO DAILY #30 tablet 11/02/18 Unknown Rx Phenazopyridine [Pyridium] 200 mg PO TID #6 tab 11/02/18 Unknown Rx Sulfamethoxazole/Trimethoprim 1 each PO BID #6 tablet 11/02/18 Unknown Rx [Bactrim DS TAB] Ibuprofen [Motrin 600 MG tab] 600 mg PO Q8H PRN #15 tablet 01/12/19 Unknown Rx Clindamycin [Clindamycin CAP] 300 mg PO Q8H #10 cap 01/24/19 Unknown Rx Ibuprofen [Motrin 800 MG tab] 800 mg PO Q8HR PRN #30 tablet 01/24/19 Unknown Rx Benzonatate [Tessalon Perles] 100 mg PO Q8HR #30 capsule 05/05/19 Unknown Rx Cetirizine HCl [Zyrtec 10mg tab] 10 mg PO DAILY #30 tablet 05/05/19 Unknown Rx Doxycycline Hyclate [Doxycycline 100 mg PO Q12HR #20 tab 05/05/19 Unknown Rx Hyclate TAB] Ibuprofen [Motrin] 600 mg PO Q8H PRN #20 tablet 05/05/19 Unknown Rx Prednisone [predniSONE 10 mg 10 mg PO .TAPER #21 tab.ds.pk 05/05/19 Unknown Rx (6-Day Pack, 21 Tabs)] Allergies Allergy/AdvReac Type Severity Reaction Status Date / Time Penicillins Allergy Itching Verified 11/02/18 11:02 ED Review of Systems ROS: Stated complaint: SORE THOAT Other details as noted in HPI Constitutional: denies: chills, fever Eyes: denies: eye pain, eye discharge, vision change ENT: congestion. denies: ear pain, throat pain Respiratory: cough. denies: shortness of breath, SOB with exertion, SOB at rest, wheezing Cardiovascular: denies: chest pain, palpitations, dyspnea on exertion, edema Endocrine: no symptoms reported Gastrointestinal: denies: abdominal pain, nausea, diarrhea Genitourinary: denies: urgency, dysuria, discharge Musculoskeletal: denies: back pain, joint swelling, arthralgia Skin: denies: rash, lesions Neurological: headache. denies: weakness, paresthesias Psychiatric: denies: anxiety, depression Hematological/Lymphatic: denies: easy bleeding, easy bruising ED Past Medical Hx - Past Medical History Previous Medical History?: Yes Hx Hypertension: Yes Hx Diabetes: Yes Additional medical history: elevated cholesterol - Surgical History Past Surgical History?: Yes Additional Surgical History: Hysterectomy. screw to right hand - Social History Smoking Status: Never Smoker Substance Use Type: None - Medications Home Medications: Home Medications Medication Instructions Recorded Confirmed Last Taken Type Ketorolac Tromethamine [Acular] 1 - 2 drops OS Q6H PRN #1 bottle 09/11/18 Unknown Rx Tobramycin [Tobrex] 1 drop OP Q4H #1 bottle 09/11/18 Unknown Rx Enalapril Maleate [Vasotec] 20 mg PO DAILY #30 tablet 11/02/18 Unknown Rx Phenazopyridine [Pyridium] 200 mg PO TID #6 tab 11/02/18 Unknown Rx Sulfamethoxazole/Trimethoprim 1 each PO BID #6 tablet 11/02/18 Unknown Rx [Bactrim DS TAB] Ibuprofen [Motrin 600 MG tab] 600 mg PO Q8H PRN #15 tablet 01/12/19 Unknown Rx Clindamycin [Clindamycin CAP] 300 mg PO Q8H #10 cap 01/24/19 Unknown Rx Ibuprofen [Motrin 800 MG tab] 800 mg PO Q8HR PRN #30 tablet 01/24/19 Unknown Rx Benzonatate [Tessalon Perles] 100 mg PO Q8HR #30 capsule 05/05/19 Unknown Rx Cetirizine HCl [Zyrtec 10mg tab] 10 mg PO DAILY #30 tablet 05/05/19 Unknown Rx Doxycycline Hyclate [Doxycycline 100 mg PO Q12HR #20 tab 05/05/19 Unknown Rx Hyclate TAB] Ibuprofen [Motrin] 600 mg PO Q8H PRN #20 tablet 05/05/19 Unknown Rx Prednisone [predniSONE 10 mg 10 mg PO .TAPER #21 tab.ds.pk 05/05/19 Unknown Rx (6-Day Pack, 21 Tabs)] ED Physical Exam - General Limitations: No Limitations General appearance: alert, in no apparent distress - Head Head exam: Present: atraumatic, normocephalic, normal inspection - Eye Eye exam: Present: normal appearance, PERRL, EOMI Pupils: Present: normal accommodation - ENT ENT exam: Present: normal orophraynx, mucous membranes moist, TM's normal bilaterally, normal external ear exam, other (grossly congested nasal passages, palpable tenderness of frontal and maxillary sinuses) - Neck Neck exam: Present: normal inspection, full ROM, lymphadenopathy. Absent: tenderness, meningismus - Respiratory Respiratory exam: Present: normal lung sounds bilaterally. Absent: respiratory distress, wheezes, rales, rhonchi, chest wall tenderness, accessory muscle use, decreased breath sounds, prolonged expiratory - Cardiovascular Cardiovascular Exam: Present: regular rate, normal rhythm, normal heart sounds. Absent: systolic murmur, diastolic murmur, rubs, gallop - GI/Abdominal GI/Abdominal exam: Present: soft, normal bowel sounds. Absent: tenderness, guarding, rebound, hyperactive bowel sounds, organomegaly - Rectal Rectal exam: Present: deferred - Extremities Exam Extremities exam: Present: normal inspection, full ROM, normal capillary refill - Back Exam Back exam: Present: normal inspection, full ROM. Absent: tenderness, CVA tenderness (R), CVA tenderness (L), muscle spasm, paraspinal tenderness, vertebral tenderness - Neurological Exam Neurological exam: Present: alert, oriented X3, CN II-XII intact, normal gait, reflexes normal - Psychiatric Psychiatric exam: Present: normal affect, normal mood. Absent: anxious, flat affect, manic - Skin Skin exam: Present: warm, dry, intact, normal color. Absent: rash ED Course Vital Signs 05/05/19 20:49 Temperature 98.7 F Pulse Rate 72 Respiratory 18 Rate Blood Pressure 188/92 O2 Sat by Pulse 99 Oximetry - Reevaluation(s) Reevaluation #1: 05/05/19 22:02 This is a 49-year-old female who presented to the ED with nasal and sinus congestion, dry cough, sore throat and left ear pain for 2 days. In the ED, patient is alert and oriented 3 and is not in distress. Chest x-ray shows no acute cardiopulmonary abnormalities. Patient was treated for pain in the ED and was discharged home on medications and advised to follow up with her primary care physician in 7-10 days for reevaluation or return to the ED immediately if symptoms get worse. ED Medical Decision Making - Radiology Data Radiology results: report reviewed, image reviewed Chest x-ray shows no acute cardiopulmonary abnormalities. - Medical Decision Making This is a 49-year-old female who presented to the ED with nasal and sinus congestion, dry cough, sore throat and left ear pain for 2 days. In the ED, patient is alert and oriented 3 and is not in distress. Chest x-ray shows no acute cardiopulmonary abnormalities. Patient was treated for pain in the ED and was discharged home on medications and advised to follow up with her primary care physician in 7-10 days for reevaluation or return to the ED immediately if symptoms get worse. - Differential Diagnosis acute URI; Sinusitis; Pharyngitis; Bronchitis; Pneumonia Critical care attestation.: If time is entered above; I have spent that time in minutes in the direct care of this critically ill patient, excluding procedure time. ED Disposition Clinical Impression: Acute pharyngitis Qualifiers: Pharyngitis/tonsillitis etiology: other specified organisms Qualified Code(s): J02.8 - Acute pharyngitis due to other specified organisms Acute frontal sinusitis Qualifiers: Recurrence: non-recurrent Qualified Code(s): J01.10 - Acute frontal sinusitis, unspecified Acute bronchitis Qualifiers: Bronchitis organism: other organism Qualified Code(s): J20.8 - Acute bronchitis due to other specified organisms Disposition: TO HOME OR SELFCARE Is pt being admited?: No Does the pt Need Aspirin: No Condition: Stable Instructions: Acute Bronchitis (ED), Upper Respiratory Infection (ED), Acute Bacterial Rhinosinusitis (ED) Additional Instructions: Take medications with food, drink plenty of fluids and follow-up with your primary care physician in 7-10 days for reevaluation. Return to the ED immediately if symptoms get worse. Prescriptions: Doxycycline Hyclate [Doxycycline Hyclate TAB] 100 mg PO Q12HR #20 tab Ibuprofen [Motrin] 600 mg PO Q8H PRN #20 tablet PRN Reason: Pain Prednisone [predniSONE 10 mg (6-Day Pack, 21 Tabs)] 10 mg PO .TAPER #21 tab.ds.pk Benzonatate [Tessalon Perles] 100 mg PO Q8HR #30 capsule Cetirizine HCl [Zyrtec 10mg tab] 10 mg PO DAILY #30 tablet Referrals: PRIMARY CARE, [Primary Care Provider] - 3-5 Days Time of Disposition: 21:50 Print Language: CENTRAL AFRICAN
== END 2019-05-05 22:03 | disposition home or self-care (01) ==
LOC: ED 19:57
DX: J01.10 Acute frontal sinusitis, unspecified (principal); J20.9 Acute bronchitis, unspecified; J02.9 Acute pharyngitis, unspecified; I10 Essential (primary) hypertension; E11.9 Type 2 diabetes mellitus without complications; Z98.51 Tubal ligation status; Z79.899 Other long term (current) drug therapy; Z98.890 Other specified postprocedural states; Z88.0 Allergy status to penicillin
CPT/HCPCS: 71046; 99283; J7512

== ENCOUNTER 2020-08-16 16:41 | Emergency (ER) | payer MEDICAID ==
[2020-08-16 18:52] LABS: Bilirubin,Urine NEG (Negative); Blood,Urine NEG (Negative); Color,Urine Yellow (Yellow); Mucus,Urine 3+ /HPF; Urobilinogen,Urine < 2.0 mg/dL (<2.0)
[2020-08-16 18:53] LABS: Protein,Urine >500 mg/dL (Negative); WBC,Urine > 182.0 /HPF (0.0-6.0)
[2020-08-16 19:09] LABS: Alanine Aminotransferase 24 units/L (7-56); Albumin 3.6 g/dL (3.9-5); Blood Urea Nitrogen 12 mg/dL (7-17); Calcium 9.9 mg/dL (8.4-10.2); Hemolysis Index 7
[2020-08-16 19:10] LABS: BUN/Creatinine Ratio 20
[2020-08-16 19:15] LABS: Basophils % (Auto) 0.6 % (0.0-1.8); Eosinophils # (Auto) 0.1 K/mm3 (0.0-0.4); Eosinophils % (Auto) 2.3 % (0.0-4.3); Hematocrit 43.4 % (30.3-42.9); Hemoglobin 14.3 gm/dl (10.1-14.3); Lymphocytes # (Auto) 1.5 K/mm3 (1.2-5.4); Lymphocytes % (Auto) 31.3 % (13.4-35.0); Mean Corpuscular HGB Conc 33 % (30-34); Mean Corpuscular Volume 78 fl (79-97); Monocytes # (Auto) 0.3 K/mm3 (0.0-0.8); Monocytes % (Auto) 6.9 % (0.0-7.3); Platelet Count 276 K/mm3 (140-440); Red Blood Count 5.54 M/mm3 (3.65-5.03)
--- NOTE | 2020-08-16 20:06 | Emergency Department Report ---
HPI - General Chief Complaint: Allergic Reaction ED Past Medical Hx - Past Medical History Previous Medical History?: Yes Hx Hypertension: Yes Hx Diabetes: Yes Additional medical history: elevated cholesterol - Surgical History Past Surgical History?: Yes Additional Surgical History: Hysterectomy. screw to right hand - Social History Smoking Status: Never Smoker Substance Use Type: None - Medications Home Medications: Home Medications Medication Instructions Recorded Confirmed Last Taken Type Ketorolac Tromethamine [Acular] 1 - 2 drops OS Q6H PRN #1 bottle 09/11/18 Unknown Rx Tobramycin [Tobrex] 1 drop OP Q4H #1 bottle 09/11/18 Unknown Rx Enalapril Maleate [Vasotec] 20 mg PO DAILY #30 tablet 11/02/18 Unknown Rx Phenazopyridine [Pyridium] 200 mg PO TID #6 tab 11/02/18 Unknown Rx Sulfamethoxazole/Trimethoprim 1 each PO BID #6 tablet 11/02/18 Unknown Rx [Bactrim DS TAB] Ibuprofen [Motrin 600 MG tab] 600 mg PO Q8H PRN #15 tablet 01/12/19 Unknown Rx Clindamycin [Clindamycin CAP] 300 mg PO Q8H #10 cap 01/24/19 Unknown Rx Ibuprofen [Motrin 800 MG tab] 800 mg PO Q8HR PRN #30 tablet 01/24/19 Unknown Rx Benzonatate [Tessalon Perles] 100 mg PO Q8HR #30 capsule 05/05/19 Unknown Rx Cetirizine HCl [Zyrtec 10mg tab] 10 mg PO DAILY #30 tablet 05/05/19 Unknown Rx Doxycycline Hyclate [Doxycycline 100 mg PO Q12HR #20 tab 05/05/19 Unknown Rx Hyclate TAB] Ibuprofen [Motrin] 600 mg PO Q8H PRN #20 tablet 05/05/19 Unknown Rx Prednisone [predniSONE 10 mg 10 mg PO .TAPER #21 tab.ds.pk 05/05/19 Unknown Rx (6-Day Pack, 21 Tabs)] ED Review of Systems ROS: Stated complaint: ALLERGIC REACTION Other details as noted in [facility] ED Medical Decision Making - Lab Data Result diagrams: 08/16/20 18:36 08/16/20 18:36 Critical care attestation.: If time is entered above; I have spent that time in minutes in the direct care of this critically ill patient, excluding procedure time. ED Disposition Condition: Stable
[2020-08-16] MEDS ORDERED: SODIUM CHLORIDE 0.9% 1000 ML 1,000 ML IV ONE (20:07)
[2020-08-16] MEDS ORDERED: INSULIN REGULAR, HUMAN 100 UNIT/ML 3ML VIAL IV ONE (20:07)
--- NOTE | 2020-08-16 20:13 | Emergency Department Report ---
ED General Adult HPI - General Chief complaint: Allergic Reaction Stated complaint: ALLERGIC REACTION PUI?: No Source: patient Mode of arrival: Ambulatory Limitations: No Limitations - History of Present Illness Initial comments: The patient was evaluated in the emergency department for symptoms described in the history of present illness. He/she was evaluated in the context of the global COVID-19 pandemic, which necessitated consideration that the patient might be at risk for infection with the virus that causes COVID-19. Institutional protocols and algorithms that pertain to the evaluation of patients at risk for COVID-19 are in a state of rapid change based on information released by regulatory bodies including the CDC and federal and state organizations. These policies and algorithms were followed during the patient's care in the emergency department. Please note that these policies, procedures and recommendations changed on a rapid basis. 50-year-old female presents to the emergency room complaining of dysuria increased urinary frequency positive urine odor slight fever nausea. She also complains of a rash x1 week. Patient reports she is a diabetic and she is currently on 70/30 insulin. She complains of right lower quadrant pain. She states that she had an epidural from the pain clinic on 1216. She reports that her blood sugar when she first came to the ER was 300. Patient has been drinking Coca-Col[employer]. Onset/Timin -: days(s), week(s) (1 week rash chest and neck) Location: pelvis Severity scale (0 -10): 8 Quality: burning, stabbing, sharp Consistency: intermittent Improves with: none Worsens with: other (Urination) Associated Symptoms: fever/chills (Slight fever no chills), nausea/vomiting (Nausea no vomiting) Treatments Prior to Arrival: none - Related Data Previous Rx's Medication Instructions Recorded Last Taken Type Ketorolac Tromethamine [Acular] 1 - 2 drops OS Q6H PRN #1 bottle 09/11/18 Unknown Rx Tobramycin [Tobrex] 1 drop OP Q4H #1 bottle 09/11/18 Unknown Rx Enalapril Maleate [Vasotec] 20 mg PO DAILY #30 tablet 11/02/18 Unknown Rx Phenazopyridine [Pyridium] 200 mg PO TID #6 tab 11/02/18 Unknown Rx Sulfamethoxazole/Trimethoprim 1 each PO BID #6 tablet 11/02/18 Unknown Rx [Bactrim DS TAB] Clindamycin [Clindamycin CAP] 300 mg PO Q8H #10 cap 01/24/19 Unknown Rx Ibuprofen [Motrin 800 MG tab] 800 mg PO Q8HR PRN #30 tablet 01/24/19 Unknown Rx Benzonatate [Tessalon Perles] 100 mg PO Q8HR #30 capsule 05/05/19 Unknown Rx Cetirizine HCl [Zyrtec 10mg tab] 10 mg PO DAILY #30 tablet 05/05/19 Unknown Rx Doxycycline Hyclate [Doxycycline 100 mg PO Q12HR #20 tab 05/05/19 Unknown Rx Hyclate TAB] Ibuprofen [Motrin] 600 mg PO Q8H PRN #20 tablet 05/05/19 Unknown Rx Prednisone [predniSONE 10 mg 10 mg PO .TAPER #21 tab.ds.pk 05/05/19 Unknown Rx (6-Day Pack, 21 Tabs)] Ibuprofen [Motrin 600 MG tab] 600 mg PO Q8H PRN #15 tablet 08/16/20 Unknown Rx Nitrofurantoin [place]/M-Cryst 100 mg PO Q12HR 10 Days #20 capsule 08/16/20 Unknown Rx [Macrobid CAP] Phenazopyridine [Pyridium] 100 mg PO TID #9 tab 08/16/20 Unknown Rx Allergies Allergy/AdvReac Type Severity Reaction Status Date / Time Penicillins Allergy Itching Verified 11/02/18 11:02 ED Review of Systems ROS: Stated complaint: ALLERGIC REACTION Other details as noted in HPI Comment: All other systems reviewed and negative ED Past Medical Hx - Past Medical History Previous Medical History?: Yes Hx Hypertension: Yes Hx Diabetes: Yes Additional medical history: elevated cholesterol - Surgical History Past Surgical History?: Yes Additional Surgical History: Hysterectomy. screw to right hand - Social History Smoking Status: Never Smoker Substance Use Type: None - Medications Home Medications: Home Medications Medication Instructions Recorded Confirmed Last Taken Type Ketorolac Tromethamine [Acular] 1 - 2 drops OS Q6H PRN #1 bottle 09/11/18 Unknown Rx Tobramycin [Tobrex] 1 drop OP Q4H #1 bottle 09/11/18 Unknown Rx Enalapril Maleate [Vasotec] 20 mg PO DAILY #30 tablet 11/02/18 Unknown Rx Phenazopyridine [Pyridium] 200 mg PO TID #6 tab 11/02/18 Unknown Rx Sulfamethoxazole/Trimethoprim 1 each PO BID #6 tablet 11/02/18 Unknown Rx [Bactrim DS TAB] Clindamycin [Clindamycin CAP] 300 mg PO Q8H #10 cap 01/24/19 Unknown Rx Ibuprofen [Motrin 800 MG tab] 800 mg PO Q8HR PRN #30 tablet 01/24/19 Unknown Rx Benzonatate [Tessalon Perles] 100 mg PO Q8HR #30 capsule 05/05/19 Unknown Rx Cetirizine HCl [Zyrtec 10mg tab] 10 mg PO DAILY #30 tablet 05/05/19 Unknown Rx Doxycycline Hyclate [Doxycycline 100 mg PO Q12HR #20 tab 05/05/19 Unknown Rx Hyclate TAB] Ibuprofen [Motrin] 600 mg PO Q8H PRN #20 tablet 05/05/19 Unknown Rx Prednisone [predniSONE 10 mg 10 mg PO .TAPER #21 tab.ds.pk 05/05/19 Unknown Rx (6-Day Pack, 21 Tabs)] Ibuprofen [Motrin 600 MG tab] 600 mg PO Q8H PRN #15 tablet 08/16/20 Unknown Rx Nitrofurantoin [place]ball/M-Cryst 100 mg PO Q12HR 10 Days #20 capsule 08/16/20 Unknown Rx [Macrobid CAP] Phenazopyridine [Pyridium] 100 mg PO TID #9 tab 08/16/20 Unknown Rx ED Physical Exam - General Limitations: No Limitations General appearance: alert, in no apparent distress - Head Head exam: Present: atraumatic, normocephalic - Eye Eye exam: Present: normal appearance - ENT ENT exam: Present: mucous membranes moist - Neck Neck exam: Present: full ROM - Respiratory Respiratory exam: Absent: accessory muscle use - GI/Abdominal GI/Abdominal exam: Present: soft, tenderness (Suprapubic). Absent: distended - Extremities Exam Extremities exam: Present: full ROM - Back Exam Back exam: Present: normal inspection, full ROM - Neurological Exam Neurological exam: Present: alert, oriented X3, normal gait - Psychiatric Psychiatric exam: Present: normal affect, normal mood - Skin Skin exam: Present: warm, dry, intact, normal color. Absent: rash ED Course Vital Signs 08/16/20 18:02 Temperature 98.0 F Pulse Rate 73 Respiratory 18 Rate Blood Pressure 178/82 O2 Sat by Pulse 99 Oximetry ED Medical Decision Making - Lab Data Result diagrams: 08/16/20 18:36 08/16/20 18:36 - Medical Decision Making 50-year-old female presents to the emergency room complaining of dysuria increased urinary frequency positive urine odor slight fever nausea. She also complains of a rash x1 week. Patient reports she is a diabetic and she is currently on 70/30 insulin. She complains of right lower quadrant pain. She states that she had an epidural from the pain clinic on 1217. She reports that her blood sugar when she first came to the ER was 300. Patient has been drinking Coca-Cola. Bolus of normal saline, insulin regular 10 units IV. Patient be discharged home on Macrobid for urinary tract infection. Patient is instructed to increase her insulin when her blood sugars are over 250 x 2 units. Patient is also instructed to not drink any sodas drink water. Critical care attestation.: If time is entered above; I have spent that time in minutes in the direct care of this critically ill patient, excluding procedure time. 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 You can increase your insulin by 2 units if your blood sugar is greater than 250. Please avoid sodas juices increase your water intake. Follow-up with your primary care provider. Prescriptions: Nitrofurantoin Kimball/M-Cryst [Macrobid CAP] 100 mg PO Q12HR 10 Days #20 capsule Ibuprofen [Motrin 600 MG tab] 600 mg PO Q8H PRN #15 tablet PRN Reason: Pain Phenazopyridine [Pyridium] 100 mg PO TID #9 tab Referrals: PRIMARY CARE,MD [Primary Care Provider] - 3-5 Days Your, primary care provider [Other] - 3-5 Days Forms: Work/School Release Form(ED)
[2020-08-16] MEDS ORDERED: traMADol 50 MG TAB PO ONE (23:09)
[2020-08-17 03:31] VITALS: BP 119/78
== END 2020-08-16 23:35 | disposition home or self-care (01) ==
LOC: ED 16:41
DX: N39.0 Urinary tract infection, site not specified (principal); E11.65 Type 2 diabetes mellitus with hyperglycemia; I10 Essential (primary) hypertension; Z90.710 Acquired absence of both cervix and uterus; Z79.1 Long term (current) use of non-steroidal anti-inflammatories (NSAID); Z79.2 Long term (current) use of antibiotics; Z79.899 Other long term (current) drug therapy; Z88.0 Allergy status to penicillin
CPT/HCPCS: 36415; 80053; 81001; 82805; 82962; 85025; 87086; 96361; 96374; 99284; J7030; J1815

== ENCOUNTER 2020-10-31 10:51 | Outpatient (CLI) | payer MEDICAID ==
--- NOTE | 2020-10-31 14:30 | XRay Report ---
CERVICAL SPINE 8 VIEWS INDICATION / CLINICAL INFORMATION: BACK PAIN. COMPARISON: Cervical spine MR 06/30/2020 FINDINGS: VERTEBRAE: No acute fracture. No significant malalignment. No change on additional extension views. DISC SPACES / FACET JOINTS:Moderate multilevel discogenic degenerative change noted of the cervical s pine with loss of intervertebral disc space height and uncovertebral hypertrophy. Bilateral neural fo raminal stenosis noted at multiple levels, more pronounced on the right at C5-C6 and C6-C7. PARASPINAL SOFT TISSUES:No significant abnormality. ADDITIONAL FINDINGS: Rounded opacity projects over the cardiac silhouette on lateral views which may be secondary to positioning, there is clinical concern dedicated chest radiograph can be obtained. Signer Name: Ari Estrella MD Signed: 10/31/2020 2:25 PM Workstation Name: [id number]
== END 2020-10-31 10:52 | disposition home or self-care (01) ==
LOC: LAB 10:51
DX: M47.812 Spondylosis without myelopathy or radiculopathy, cervical region (principal); M48.02 Spinal stenosis, cervical region
CPT/HCPCS: 72052

== ENCOUNTER 2021-08-29 18:01 | Emergency (ER) | payer MEDICAID ==
[2021-08-29 20:18] VITALS: BP 241/113
[2021-08-29] MEDS ORDERED: predniSONE 20 MG TAB PO ONE (21:49)
[2021-08-29] MEDS ORDERED: IBUPROFEN 600 MG TAB PO ONE (21:49)
[2021-08-29] MEDS ORDERED: ACETAMINOPHEN 500 MG TAB PO ONE (21:49)
--- NOTE | 2021-08-29 22:15 | XRay Report ---
CHEST 2 VIEWS INDICATION / CLINICAL INFORMATION: COUGH. COMPARISON: 05/05/2019 FINDINGS: SUPPORT DEVICES: None. HEART / MEDIASTINUM: No significant abnormality. LUNGS / PLEURA: No significant pulmonary or pleural abnormality. No pneumothorax. ADDITIONAL FINDINGS: No significant additional findings. IMPRESSION: 1. No acute findings. Signer Name: Aashish Velez MD Signed: 08/29/2021 10:11 PM Workstation Name: [id number]
--- NOTE | 2021-08-29 22:39 | Emergency Department Report ---
- General Chief Complaint: Sore Throat Stated Complaint: PAIN IN THROAT Source: patient Mode of arrival: Ambulatory Limitations: No Limitations - History of Present Illness Initial Comments: Patient is a 51-year-old female with a history of hypertension, hyperlipidemia and csz-taylhxd-rnigmjnoz diabetes who presented to the ED with complaint of acute onset persistent nasal and sinus congestion, frontal sinus pressure and headache, sore throat, persistent dry cough with generalized weakness, fatigue, lack of appetite, and diffuse body aches and pains for the last 5 days. Patient states that she has been taking vyvn-din-ktbvrpi medications with no relief. Patient denies dizziness, syncope, chest pain, shortness of breath, nausea and vomiting or diarrhea, dysuria, urinary frequency and urgency or change in vision. MD Complaint: cough, sore throat, rhinorrhea, nasal congestion, sinus pain -: Sudden, days(s) (5) Severity scale (0 -10): 7 Quality: sharp, aching Consistency: constant Improves With: nothing Worsens With: nothing Associated Symptoms: denies other symptoms, myalgias, headache, rhinorrhea, nasal congestion, sore throat, cough. denies: fever, chills, diaphoresis, stiff neck, chest pain, shortness of breath, abdominal pain, nausea, vomiting, diarrhea, dysuria, rash, right sweats, weight loss, epistaxis, hoarseness, ear pain, other Treatments Prior to Arrival: "cold medicine" - Related Data Previous Rx's Medication Instructions Recorded Last Taken Type Ketorolac Tromethamine [Acular] 1 - 2 drops OS Q6H PRN #1 bottle 09/11/18 Unknown Rx Tobramycin [Tobrex] 1 drop OP Q4H #1 bottle 09/11/18 Unknown Rx Enalapril Maleate [Vasotec] 20 mg PO DAILY #30 tablet 11/02/18 Unknown Rx Phenazopyridine [Pyridium] 200 mg PO TID #6 tab 11/02/18 Unknown Rx Sulfamethoxazole/Trimethoprim 1 each PO BID #6 tablet 11/02/18 Unknown Rx [Bactrim DS TAB] Clindamycin [Clindamycin CAP] 300 mg PO Q8H #10 cap 01/24/19 Unknown Rx Ibuprofen [Motrin 800 MG tab] 800 mg PO Q8HR PRN #30 tablet 01/24/19 Unknown Rx Doxycycline Hyclate [Doxycycline 100 mg PO Q12HR #20 tab 05/05/19 Unknown Rx Hyclate TAB] Ibuprofen [Motrin] 600 mg PO Q8H PRN #20 tablet 05/05/19 Unknown Rx Prednisone [predniSONE 10 mg 10 mg PO .TAPER #21 tab.ds.pk 05/05/19 Unknown Rx (6-Day Pack, 21 Tabs)] Nitrofurantoin [place]/M-Cryst 100 mg PO Q12HR 10 Days #20 capsule 08/16/20 Unknown Rx [Macrobid CAP] Phenazopyridine [Pyridium] 100 mg PO TID #9 tab 08/16/20 Unknown Rx Azithromycin [Zithromax Z-HENRI] 250 mg PO DAILY #6 tablet 08/29/21 Unknown Rx Benzonatate [Tessalon Perles] 100 mg PO Q8HR #30 capsule 08/29/21 Unknown Rx Cetirizine HCl [Zyrtec 10mg tab] 10 mg PO DAILY #30 tablet 08/29/21 Unknown Rx Ibuprofen [Motrin 600 MG tab] 600 mg PO Q8H PRN #30 tablet 08/29/21 Unknown Rx Allergies Allergy/AdvReac Type Severity Reaction Status Date / Time Penicillins Allergy Itching Verified 11/02/18 11:02 ED Review of Systems ROS: Stated complaint: PAIN IN THROAT Other details as noted in HPI Constitutional: denies: chills, fever Eyes: denies: eye pain, eye discharge, vision change ENT: throat pain, congestion, other (Frontal sinus pressure and headache). denies: ear pain Respiratory: cough (Dry). denies: shortness of breath, wheezing Cardiovascular: denies: chest pain, palpitations Endocrine: no symptoms reported Gastrointestinal: denies: abdominal pain, nausea, vomiting, diarrhea Genitourinary: denies: urgency, dysuria, discharge Musculoskeletal: denies: back pain, joint swelling, arthralgia Skin: denies: rash, lesions Neurological: headache (Frontal headache). denies: weakness, paresthesias Psychiatric: denies: anxiety, depression Hematological/Lymphatic: denies: easy bleeding, easy bruising ED Past Medical Hx - Past Medical History Previous Medical History?: Yes Hx Hypertension: Yes Hx Diabetes: Yes Additional medical history: elevated cholesterol - Surgical History Past Surgical History?: Yes Additional Surgical History: Hysterectomy. screw to right hand - Social History Smoking Status: Never Smoker Substance Use Type: None - Medications Home Medications: Home Medications Medication Instructions Recorded Confirmed Last Taken Type Ketorolac Tromethamine [Acular] 1 - 2 drops OS Q6H PRN #1 bottle 09/11/18 Unknown Rx Tobramycin [Tobrex] 1 drop OP Q4H #1 bottle 09/11/18 Unknown Rx Enalapril Maleate [Vasotec] 20 mg PO DAILY #30 tablet 11/02/18 Unknown Rx Phenazopyridine [Pyridium] 200 mg PO TID #6 tab 11/02/18 Unknown Rx Sulfamethoxazole/Trimethoprim 1 each PO BID #6 tablet 11/02/18 Unknown Rx [Bactrim DS TAB] Clindamycin [Clindamycin CAP] 300 mg PO Q8H #10 cap 01/24/19 Unknown Rx Ibuprofen [Motrin 800 MG tab] 800 mg PO Q8HR PRN #30 tablet 01/24/19 Unknown Rx Doxycycline Hyclate [Doxycycline 100 mg PO Q12HR #20 tab 05/05/19 Unknown Rx Hyclate TAB] Ibuprofen [Motrin] 600 mg PO Q8H PRN #20 tablet 05/05/19 Unknown Rx Prednisone [predniSONE 10 mg 10 mg PO .TAPER #21 tab.ds.pk 05/05/19 Unknown Rx (6-Day Pack, 21 Tabs)] Nitrofurantoin [place]/M-Cryst 100 mg PO Q12HR 10 Days #20 capsule 08/16/20 Unknown Rx [Macrobid CAP] Phenazopyridine [Pyridium] 100 mg PO TID #9 tab 08/16/20 Unknown Rx Azithromycin [Zithromax Z-HENRI] 250 mg PO DAILY #6 tablet 08/29/21 Unknown Rx Benzonatate [Tessalon Perles] 100 mg PO Q8HR #30 capsule 08/29/21 Unknown Rx Cetirizine HCl [Zyrtec 10mg tab] 10 mg PO DAILY #30 tablet 08/29/21 Unknown Rx Ibuprofen [Motrin 600 MG tab] 600 mg PO Q8H PRN #30 tablet 08/29/21 Unknown Rx ED Physical Exam - General Limitations: No Limitations General appearance: alert, in no apparent distress - Head Head exam: Present: atraumatic, normocephalic, normal inspection - Eye Eye exam: Present: normal appearance, PERRL, EOMI Pupils: Present: normal accommodation - ENT ENT exam: Present: mucous membranes moist, TM's normal bilaterally, normal external ear exam, other (Grossly congested nasal passages; mild erythematous oropharynx and tonsils; palpable frontal and maxillary sinus tenderness) - Neck Neck exam: Present: normal inspection, full ROM - Respiratory Respiratory exam: Present: normal lung sounds bilaterally. Absent: respiratory distress, wheezes, rales, rhonchi, chest wall tenderness, accessory muscle use, decreased breath sounds, prolonged expiratory - Cardiovascular Cardiovascular Exam: Present: regular rate, normal rhythm, normal heart sounds. Absent: systolic murmur, diastolic murmur, rubs, gallop - GI/Abdominal GI/Abdominal exam: Present: soft, normal bowel sounds. Absent: tenderness, guarding, rebound, hyperactive bowel sounds, hypoactive bowel sounds, organomegaly - Extremities Exam Extremities exam: Present: normal inspection, full ROM, normal capillary refill - Back Exam Back exam: Present: normal inspection, full ROM. Absent: tenderness, CVA tenderness (R), muscle spasm - Neurological Exam Neurological exam: Present: alert, oriented X3, CN II-XII intact, normal gait, reflexes normal - Psychiatric Psychiatric exam: Present: normal affect, normal mood - Skin Skin exam: Present: warm, dry, intact, normal color. Absent: rash ED Course Vital Signs 08/29/21 08/29/21 20:18 22:30 Temperature 98.7 F Pulse Rate 86 Respiratory 18 Rate Blood Pressure 241/113 O2 Sat by Pulse 99 Oximetry ED Medical Decision Making - Radiology Data Radiology results: report reviewed, image reviewed [facility] [address] [place] [address] XRay Report Signed Patient: LISA ROY MR#: [id number] : 1970 Acct:[id number] Age/Sex: 51 / F ADM Date: 08/29/21 Loc: ED Attending Dr: Ordering Physician: SUZIE BRITTON Date of Service: 08/29/21 Procedure(s): XR chest routine 2V Accession Number(s): [id number] cc: SUZIE BRITTON Fluoro Time In Minutes: CHEST 2 VIEWS INDICATION / CLINICAL INFORMATION: COUGH. COMPARISON: 05/05/2019 FINDINGS: SUPPORT DEVICES: None. HEART / MEDIASTINUM: No significant abnormality. LUNGS / PLEURA: No significant pulmonary or pleural abnormality. No pneumothorax. ADDITIONAL FINDINGS: No significant additional findings. IMPRESSION: 1. No acute findings. Signer Name: Aashish Delgado MD Signed: 08/29/2021 10:11 PM Workstation Name: [id number] Transcribed By: BHARATI Dictated By: JEFF DELGADO MD Electronically Authenticated By: JEFF DELGADO MD Signed Date/Time: 08/29/212210 DD/ 09 TD/TT: Print - Medical Decision Making This is a 51-year-old female with a history of hypertension, hyperlipidemia and mod-risoxvs-zvcmvgcfq diabetes who presented to the ED with complaint of acute onset persistent nasal and sinus congestion, frontal sinus pressure and headache, sore throat, persistent dry cough with generalized weakness, fatigue, lack of appetite, and diffuse body aches and pains for the last 5 days. Patient states that she has been taking amjo-mvj-bimlsyf medications with no relief. In the ED, patient is alert and oriented x3 and is not in any distress. Chest x-ray showed no acute cardiopulmonary abnormalities or pneumonitis. Patient was treated for pain in the ED and was discharged home on medications including pain medications and was advised to follow-up with her primary care physician in 7 to 10 days for reevaluation. Patient was advised return to the ED immediately if symptoms get worse. - Differential Diagnosis Bronchitis; URI; sinusitis; pharyngitis; pneumonia; COVID-19 Critical care attestation.: If time is entered above; I have spent that time in minutes in the direct care of this critically ill patient, excluding procedure time. ED Disposition Clinical Impression: Acute bronchitis Qualifiers: Bronchitis organism: other organism Qualified Code(s): J20.8 - Acute bronchitis due to other specified organisms Acute frontal sinusitis Qualifiers: Recurrence: non-recurrent Qualified Code(s): J01.10 - Acute frontal sinusitis, unspecified Acute pharyngitis Qualifiers: Pharyngitis/tonsillitis etiology: unspecified etiology Qualified Code(s): J02.9 - Acute pharyngitis, unspecified Disposition: 01 HOME / SELF CARE / HOMELESS Is pt being admited?: No Does the pt Need Aspirin: No Condition: Stable Instructions: Acute Bronchitis (ED), Sinusitis, Adult, Zxds-ha-Wfag, Upper Respiratory Infection, Adult, Hvuu-yd-Inhu, Acute Bronchitis, Adult, Cfxu-uh-Nslg, Pharyngitis, Adkm-lo-Cfgc Additional Instructions: Chest x-ray showed no acute cardiopulmonary abnormalities or pneumonitis. Therefore take medications with food, drink plenty of fluids and follow-up with your primary care physician in 7 to 10 days for reevaluation. Return to the ED immediately if symptoms get worse Prescriptions: Ibuprofen [Motrin 600 MG tab] 600 mg PO Q8H PRN #30 tablet PRN Reason: Pain Benzonatate [Tessalon Perles] 100 mg PO Q8HR #30 capsule Azithromycin [Zithromax Z-HENRI] 250 mg PO DAILY #6 tablet Cetirizine HCl [Zyrtec 10mg tab] 10 mg PO DAILY #30 tablet Referrals: [facility] [Provider Group] - 7-10 days Forms: Work/School Release Form(ED) Time of Disposition: 22:40 Print Language: PERSIAN
== END 2021-08-29 23:15 | disposition home or self-care (01) ==
LOC: ED 18:01
DX: J20.9 Acute bronchitis, unspecified (principal); J01.10 Acute frontal sinusitis, unspecified; I10 Essential (primary) hypertension; E11.9 Type 2 diabetes mellitus without complications; E78.00 Pure hypercholesterolemia, unspecified; Z90.710 Acquired absence of both cervix and uterus; Z88.0 Allergy status to penicillin; Z79.899 Other long term (current) drug therapy
CPT/HCPCS: 71046; 99283; J7512

== ENCOUNTER 2021-09-24 18:15 | Emergency (ER) | payer MEDICAID ==
[2021-09-24 20:09] LABS: Bilirubin,Urine NEG (Negative); Blood,Urine NEG (Negative); Color,Urine Yellow (Yellow); Hyaline Casts,Urine 28 /LPF; Mucus,Urine 1+ /HPF; Urobilinogen,Urine < 2.0 mg/dL (<2.0)
[2021-09-24 20:13] LABS: Protein,Urine >500 mg/dL (Negative); WBC,Urine > 182.0 /HPF (0.0-6.0)
[2021-09-24] MEDS ORDERED: KETOROLAC 30 MG/1 ML INJ IV ONE (20:25)
[2021-09-24] MEDS ORDERED: SODIUM CHLORIDE 0.9% 1000 ML 1,000 ML IV ONE (20:25)
[2021-09-24] MEDS ORDERED: ONDANSETRON 4 MG/2 ML INJ IV ONE (20:25)
[2021-09-24] MEDS ORDERED: cefTRIAXone/NS 1 GM/50 ML 1 GM/50 ML BAG IV ONE (20:26)
--- NOTE | 2021-09-24 20:45 | Emergency Department Report ---
ED Abdominal Pain HPI - General Chief Complaint: Urogenital-Female Stated Complaint: PAINFUL URINE Time Seen by Provider: 09/24/21 20:24 Source: patient Mode of arrival: Ambulatory Limitations: No Limitations - History of Present Illness Initial Comments: Is a 51-year-old female with history of renal stones who presents for right flank pain radiating to the right flank x3 days with dysuria frequency and urgency. Patient denies hematuria there is nausea no vomiting there has been no fever or chills to this point. Last renal stone was 3 months ago no nobstructing. Patient currently not on antibiotics patient denies other medical problems. Symptoms are exacerbated by voiding. Symptoms are relieved by nothing tried. MD Complaint: abdominal pain, flank pain - Related Data Previous Rx's Medication Instructions Recorded Last Taken Type Ketorolac Tromethamine [Acular] 1 - 2 drops OS Q6H PRN #1 bottle 09/11/18 Unknown Rx Tobramycin [Tobrex] 1 drop OP Q4H #1 bottle 09/11/18 Unknown Rx Enalapril Maleate [Vasotec] 20 mg PO DAILY #30 tablet 11/02/18 Unknown Rx Phenazopyridine [Pyridium] 200 mg PO TID #6 tab 11/02/18 Unknown Rx Sulfamethoxazole/Trimethoprim 1 each PO BID #6 tablet 11/02/18 Unknown Rx [Bactrim DS TAB] Clindamycin [Clindamycin CAP] 300 mg PO Q8H #10 cap 01/24/19 Unknown Rx Ibuprofen [Motrin 800 MG tab] 800 mg PO Q8HR PRN #30 tablet 01/24/19 Unknown Rx Doxycycline Hyclate [Doxycycline 100 mg PO Q12HR #20 tab 05/05/19 Unknown Rx Hyclate TAB] Ibuprofen [Motrin] 600 mg PO Q8H PRN #20 tablet 05/05/19 Unknown Rx Prednisone [predniSONE 10 mg 10 mg PO .TAPER #21 tab.ds.pk 05/05/19 Unknown Rx (6-Day Pack, 21 Tabs)] Nitrofurantoin [place]/M-Cryst 100 mg PO Q12HR 10 Days #20 capsule 08/16/20 Unknown Rx [Macrobid CAP] Phenazopyridine [Pyridium] 100 mg PO TID #9 tab 08/16/20 Unknown Rx Azithromycin [Zithromax Z-HENRI] 250 mg PO DAILY #6 tablet 08/29/21 Unknown Rx Benzonatate [Tessalon Perles] 100 mg PO Q8HR #30 capsule 08/29/21 Unknown Rx Cetirizine HCl [Zyrtec 10mg tab] 10 mg PO DAILY #30 tablet 08/29/21 Unknown Rx Ibuprofen [Motrin 600 MG tab] 600 mg PO Q8H PRN #30 tablet 08/29/21 Unknown Rx levoFLOXacin [Levaquin TAB] 500 mg PO DAILY #7 09/24/21 Unknown Rx Allergies Allergy/AdvReac Type Severity Reaction Status Date / Time Penicillins Allergy Itching Verified 09/24/21 19:29 ED Review of Systems ROS: Stated complaint: PAINFUL URINE Other details as noted in HPI Constitutional: malaise. denies: chills, fever Eyes: denies: eye pain, eye discharge, vision change ENT: denies: ear pain, throat pain Respiratory: denies: cough, shortness of breath, wheezing Cardiovascular: denies: chest pain, palpitations Endocrine: no symptoms reported Gastrointestinal: abdominal pain, nausea. denies: vomiting, diarrhea, melena Genitourinary: urgency, dysuria, frequency. denies: hematuria Musculoskeletal: back pain Skin: denies: rash, lesions Neurological: denies: headache, weakness, paresthesias, vertigo Psychiatric: denies: anxiety, depression Hematological/Lymphatic: denies: easy bleeding, easy bruising ED Past Medical Hx - Past Medical History Hx Hypertension: Yes Hx Diabetes: Yes Additional medical history: elevated cholesterol - Surgical History Additional Surgical History: Hysterectomy. screw to right hand - Social History Smoking Status: Never Smoker Substance Use Type: None - Medications Home Medications: Home Medications Medication Instructions Recorded Confirmed Last Taken Type Ketorolac Tromethamine [Acular] 1 - 2 drops OS Q6H PRN #1 bottle 09/11/18 Unknown Rx Tobramycin [Tobrex] 1 drop OP Q4H #1 bottle 09/11/18 Unknown Rx Enalapril Maleate [Vasotec] 20 mg PO DAILY #30 tablet 11/02/18 Unknown Rx Phenazopyridine [Pyridium] 200 mg PO TID #6 tab 11/02/18 Unknown Rx Sulfamethoxazole/Trimethoprim 1 each PO BID #6 tablet 11/02/18 Unknown Rx [Bactrim DS TAB] Clindamycin [Clindamycin CAP] 300 mg PO Q8H #10 cap 05/29/19 Unknown Rx Ibuprofen [Motrin 800 MG tab] 800 mg PO Q8HR PRN #30 tablet 01/24/19 Unknown Rx Doxycycline Hyclate [Doxycycline 100 mg PO Q12HR #20 tab 05/05/19 Unknown Rx Hyclate TAB] Ibuprofen [Motrin] 600 mg PO Q8H PRN #20 tablet 05/05/19 Unknown Rx Prednisone [predniSONE 10 mg 10 mg PO .TAPER #21 tab.ds.pk 05/05/19 Unknown Rx (6-Day Pack, 21 Tabs)] Nitrofurantoin [place]/M-Cryst 100 mg PO Q12HR 10 Days #20 capsule 08/16/20 Unknown Rx [Macrobid CAP] Phenazopyridine [Pyridium] 100 mg PO TID #9 tab 08/16/20 Unknown Rx Azithromycin [Zithromax Z-HENRI] 250 mg PO DAILY #6 tablet 08/29/21 Unknown Rx Benzonatate [Tessalon Perles] 100 mg PO Q8HR #30 capsule 08/29/21 Unknown Rx Cetirizine HCl [Zyrtec 10mg tab] 10 mg PO DAILY #30 tablet 08/29/21 Unknown Rx Ibuprofen [Motrin 600 MG tab] 600 mg PO Q8H PRN #30 tablet 08/29/21 Unknown Rx levoFLOXacin [Levaquin TAB] 500 mg PO DAILY #7 09/24/21 Unknown Rx ED Physical Exam - General Limitations: No Limitations General appearance: alert, in no apparent distress - Head Head exam: Present: normocephalic - Eye Eye exam: Present: normal appearance, EOMI Pupils: Present: normal accommodation - ENT ENT exam: Present: mucous membranes moist - Neck Neck exam: Present: normal inspection, full ROM. Absent: tenderness - Respiratory Respiratory exam: Present: normal lung sounds bilaterally. Absent: respiratory distress, wheezes, stridor, chest wall tenderness - Cardiovascular Cardiovascular Exam: Present: regular rate, normal heart sounds - GI/Abdominal GI/Abdominal exam: Present: soft, tenderness (Right flank), normal bowel sounds. Absent: distended, guarding, rebound, rigid, bruit, hernia - Expanded GI/Abdominal Exam Expanded GI/Abdominal exam: Absent: psoas sign, obturator sign, heel tap sign, Quiñonez's sign, Rovsing's sign, tenderness at [place]'s [place], ascites - Rectal Rectal exam: Present: deferred - Extremities Exam Extremities exam: Present: normal inspection, full ROM. Absent: tenderness - Back Exam Back exam: Present: normal inspection, full ROM, CVA tenderness (R). Absent: CVA tenderness (L) - Neurological Exam Neurological exam: Present: alert, CN II-XII intact, normal gait - Expanded Neurological Exam Expanded Patient oriented to: Present: person, place, time Speech: Present: fluid speech Motor strength exam: RUE: 5, LUE: 5, RLE: 5, LLE: 5 Best Eye Response ([place]): (4) open spontaneously Best Motor Response ([place]): (6) obeys commands Best Verbal Response ([place]): (5) oriented [place] Total: 15 - Psychiatric Psychiatric exam: Present: normal affect, normal mood - Skin Skin exam: Present: warm, dry, intact, normal color ED Course Vital Signs 09/24/21 09/24/21 19:32 21:51 Temperature 99.1 F Pulse Rate 78 Respiratory 18 14 Rate Blood Pressure 189/89 O2 Sat by Pulse 99 Oximetry ED Medical Decision Making - Lab Data Result diagrams: 09/24/21 20:35 09/24/21 20:35 Labs 09/24/21 09/24/21 09/24/21 20:35 20:35 Unknown WBC 7.5 RBC 5.01 Hgb 12.1 Hct 38.0 MCV 76 L MCH 24 L MCHC 32 RDW 14.7 Plt Count 305 Lymph % (Auto) 24.7 [place] % (Auto) 5.0 Eos % (Auto) 1.5 Baso % (Auto) 0.3 Lymph # (Auto) 1.9 [place] # (Auto) 0.4 Eos # (Auto) 0.1 Baso # (Auto) 0.0 Seg Neutrophils % 68.5 Seg Neutrophils # 5.2 Sodium 145 Potassium 3.7 Chloride 106.1 Carbon Dioxide 25 Anion Gap 18 BUN 20 H Creatinine 1.0 Estimated GFR 58 BUN/Creatinine Ratio 20 Glucose 223 H Calcium 10.1 Total Bilirubin < 0.20 AST 14 ALT 14 Alkaline Phosphatase 103 Total Protein 6.2 L Albumin 3.1 L Albumin/Globulin Ratio 1.0 Urine Color Yellow Urine Turbidity Cloudy Urine pH 5.0 Ur Specific [place] 1.027 Urine Protein >500 Urine Glucose (UA) >=500 Urine Ketones Neg Urine Blood Neg Urine Nitrite Neg Urine Bilirubin Neg Urine Urobilinogen < 2.0 Ur Leukocyte Esterase Sm Urine WBC (Auto) > 182.0 H Urine RBC (Auto) 11.0 U Epithel Cells (Auto) 43.0 H Ur Transition Epith Cell < 1 Hyaline Casts 28 Urine Mucus 1+ - Radiology Data Radiology results: report reviewed, image reviewed CT ABDOMEN AND PELVIS WITHOUT CONTRAST HISTORY: renal stones r/p pyeloi. COMPARISON: None. TECHNIQUE: CT images of the abdomen and pelvis were obtained without administration of intravenous contrast. All CT scans at this location are performed using CT dose reduction for ALARA by means of automated exposure control. FINDINGS: Lungs/bones: The lung bases are clear Abdomen/pelvis: Within limits of a noncontrast examination the liver, spleen, adrenal glands, pancreas and upper GI tract appear normal. Trace pericardial effusion. No definite renal stone is seen. No hydronephrosis small calcification the right abdomen measures 4 mm however this is not definitely within the ureter. No ureteral dilatation. There is inflammatory change and thickening of the bladder wall. No drainable collection is seen. No evidence for appendicitis. No acute bone findings IMPRESSION: 1. No definite renal or ureteral stone. Small 4 mm calcification right abdomen appears outside the ureter. No hydronephrosis. 2. Diffuse bladder wall thickening with surrounding inflammation suggesting infection. Signer Name: Aashish Delgado MD Signed: 09/24/2021 9:07 PM Workstation Name: [id number] Transcribed By: CW Dictated By: JEFF DELGADO MD Electronically Authenticated By: JEFF DELGADO MD Signed Date/Time: 09/24/212106 DD/ 04 TD/TT: - Medical Decision Making CT abdomen pelvis no renal stones or hydronephrosis, UA positive leukocytes WBCs plan treat for UTI, follow-up with primary care doctor in 2 to 3 days. Patient advises symptoms are improved. Patient DC'd home in stable condition at this time. Critical care attestation.: If time is entered above; I have spent that time in minutes in the direct care of this critically ill patient, excluding procedure time. ED Disposition Clinical Impression: UTI (urinary tract infection) Qualifiers: Urinary tract infection type: acute cystitis Hematuria presence: without hematuria Qualified Code(s): N30.00 - Acute cystitis without hematuria Disposition: 01 HOME / SELF CARE / HOMELESS Is pt being admited?: No Does the pt Need Aspirin: No Condition: Stable Instructions: Urinary Tract Infection, Adult Additional Instructions: Take medication as prescribed, hydrate as directed. Follow-up with your doctor in 2 to 3 days. Return to emergency department should symptoms worsen. Prescriptions: levoFLOXacin [Levaquin TAB] 500 mg PO DAILY #7 Referrals: KAYLEIGH GUAN MD [Referring] - 3-5 Days Forms: Work/School Release Form(ED) Time of Disposition: 21:56
[2021-09-24 21:05] LABS: Basophils % (Auto) 0.3 % (0.0-1.8); Eosinophils # (Auto) 0.1 K/mm3 (0.0-0.4); Eosinophils % (Auto) 1.5 % (0.0-4.3); Hemoglobin 12.1 gm/dl (10.1-14.3); Lymphocytes # (Auto) 1.9 K/mm3 (1.2-5.4); Lymphocytes % (Auto) 24.7 % (13.4-35.0); Mean Corpuscular HGB Conc 32 % (30-34); Mean Corpuscular Volume 76 fl (79-97); Monocytes # (Auto) 0.4 K/mm3 (0.0-0.8); Platelet Count 305 K/mm3 (140-440); Red Blood Count 5.01 M/mm3 (3.65-5.03); Red Cell Distribution Width 14.7 % (13.2-15.2)
--- NOTE | 2021-09-24 21:11 | Cat Scan Report ---
CT ABDOMEN AND PELVIS WITHOUT CONTRAST HISTORY: renal stones r/p pyeloi. COMPARISON: None. TECHNIQUE: CT images of the abdomen and pelvis were obtained without administration of intravenous co ntrast. All CT scans at this location are performed using CT dose reduction for ALARA by means of au tomated exposure control. FINDINGS: Lungs/bones: The lung bases are clear Abdomen/pelvis: Within limits of a noncontrast examination the liver, spleen, adrenal glands, pancre as and upper GI tract appear normal. Trace pericardial effusion. No definite renal stone is seen. No hydronephrosis small calcification the right abdomen measures 4 mm however this is not definitely wit hin the ureter. No ureteral dilatation. There is inflammatory change and thickening of the bladder wall. No drainable collection is seen. No evidence for appendicitis. No acute bone findings IMPRESSION: 1. No definite renal or ureteral stone. Small 4 mm calcification right abdomen appears outside the ur eter. No hydronephrosis. 2. Diffuse bladder wall thickening with surrounding inflammation suggesting infection. Signer Name: Aashish Velez MD Signed: 09/24/2021 9:07 PM Workstation Name: [id number]
[2021-09-24 21:20] LABS: Alanine Aminotransferase 14 units/L (7-56); Albumin 3.1 g/dL (3.9-5); BUN/Creatinine Ratio 20; Blood Urea Nitrogen 20 mg/dL (7-17); Calcium 10.1 mg/dL (8.4-10.2); Hemolysis Index 5
[2021-09-25 04:12] VITALS: BP 186/94
== END 2021-09-24 22:58 | disposition home or self-care (01) ==
LOC: ED 18:15
DX: N39.0 Urinary tract infection, site not specified (principal); Z88.0 Allergy status to penicillin
CPT/HCPCS: 36415; 74176; 80053; 81001; 85025; 96365; 96375; 99284; J0696; J1885; J2405; J7030; Q0162

== ENCOUNTER 2022-04-30 13:18 | Emergency (ER) | payer MEDICAID ==
[2022-04-30 14:07] VITALS: BP 162/81
[2022-04-30 15:44] LABS: Alanine Aminotransferase 13 units/L (7-56); Albumin 2.8 g/dL (3.9-5); BUN/Creatinine Ratio 17; Blood Urea Nitrogen 46 mg/dL (7-17); Calcium 8.6 mg/dL (8.4-10.2); Hemolysis Index 5
[2022-04-30 16:04] LABS: Basophils % (Auto) 0.5 % (0.0-1.8); Eosinophils # (Auto) 0.1 K/mm3 (0.0-0.4); Eosinophils % (Auto) 1.9 % (0.0-4.3); Hematocrit 28.7 % (30.3-42.9); Hemoglobin 9.8 gm/dl (10.1-14.3); Lymphocytes # (Auto) 1.2 K/mm3 (1.2-5.4); Lymphocytes % (Auto) 17.5 % (13.4-35.0); Mean Corpuscular HGB Conc 34 % (30-34); Mean Corpuscular Volume 76 fl (79-97); Monocytes # (Auto) 0.4 K/mm3 (0.0-0.8); Monocytes % (Auto) 5.1 % (0.0-7.3); Platelet Count 331 K/mm3 (140-440); Red Blood Count 3.79 M/mm3 (3.65-5.03); Red Cell Distribution Width 14.2 % (13.2-15.2)
[2022-04-30] MEDS ORDERED: INSULIN REGULAR, HUMAN 100 UNITS/1 ML IV ONE (16:59)
[2022-04-30] MEDS ORDERED: SODIUM CHLORIDE 0.9% 500 ML 500 ML IV ONE (17:01)
[2022-04-30] MEDS ORDERED: MORPHINE 2 MG/1 ML INJ IV PRN (17:02)
--- NOTE | 2022-04-30 17:52 | Emergency Department Report ---
ED Abdominal Pain HPI - General Chief Complaint: Abdominal Pain Stated Complaint: STOMACH PAIN Time Seen by Provider: 04/30/22 16:26 Source: patient Mode of arrival: Ambulatory Limitations: No Limitations - History of Present Illness Initial Comments: Patient is a 52-year-old insulin-dependent diabetic with history of peptic ulcer disease who presents with epigastric abdominal pain for 3 days. She states initially she was unable to have a bowel movement but took some Pepto-Bismol and yesterday had a large liquid stool. She has been vomiting since onset of the pain and had a fever yesterday. She believes the symptoms came on because of some fried chicken she ate the day prior to onset of symptoms, but came here as it was not improving. She denies any dysuria urgency frequency vaginal discharge or bleeding. She is status post total hysterectomy with bilateral salpingo-oophorectomy. Denies hematochezia or melena. Primary care doctor is Kat Day ([facility]), nephrology is Alysa Cruz, GI: Christiano Lu. -: Gradual Location: diffuse (But worse in the epigastric area), epigastric Migration to: no migration Severity: moderate Severity scale (0 -10): 8 Quality: sharp Consistency: intermittent Improves With: nothing Worsens With: nothing Associated Symptoms: nausea, vomiting, constipation - Related Data Home Medications Medication Instructions Recorded Confirmed Last Taken AtorvaSTATin [Lipitor] 20 mg PO DAILY 11/13/21 01/02/22 1 Day Ago ~11/12/21 Insulin NPH Hum/Reg Insulin Hm 25 unit SQ BID 11/13/21 01/02/22 11/12/21 [Humulin 70-30 Vial] Multivitamin 1 each PO QDAY 11/13/21 01/02/22 11/12/21 Valsartan [Diovan] 160 mg PO QDAY 11/13/21 01/02/22 11/12/21 tiZANidine [Zanaflex 4mg TAB] 4 mg PO BID PRN 11/13/21 01/02/22 11/12/21 Previous Rx's Medication Instructions Recorded Last Taken Type Ketorolac Tromethamine [Acular] 1 - 2 drops OS Q6H PRN #1 bottle 09/11/18 Unknown Rx Tobramycin [Tobrex] 1 drop OP Q4H #1 bottle 09/11/18 Unknown Rx Enalapril Maleate [Vasotec] 20 mg PO DAILY #30 tablet 11/02/18 Unknown Rx Phenazopyridine [Pyridium] 200 mg PO TID #6 tab 11/02/18 Unknown Rx Sulfamethoxazole/Trimethoprim 1 each PO BID #6 tablet 11/02/18 Unknown Rx [Bactrim DS TAB] Clindamycin [Clindamycin CAP] 300 mg PO Q8H #10 cap 01/24/19 Unknown Rx Ibuprofen [Motrin 800 MG tab] 800 mg PO Q8HR PRN #30 tablet 01/24/19 Unknown Rx Doxycycline Hyclate [Doxycycline 100 mg PO Q12HR #20 tab 05/05/19 Unknown Rx Hyclate TAB] Ibuprofen [Motrin] 600 mg PO Q8H PRN #20 tablet 05/05/19 Unknown Rx Prednisone [predniSONE 10 mg 10 mg PO .TAPER #21 tab.ds.pk 05/05/19 Unknown Rx (6-Day Pack, 21 Tabs)] Benzonatate [Tessalon Perles] 100 mg PO Q8HR PRN #20 capsule 05/26/19 Unknown Rx Fluticasone [Flonase] 1 spray NS QDAY #1 bottle 05/26/19 Unknown Rx Loratadine (Nf) [Claritin] 10 mg PO DAILY #20 tablet 05/26/19 Unknown Rx Naproxen [Naprosyn] 500 mg PO BID #20 tablet 05/26/19 Unknown Rx Ondansetron [Zofran Odt] 4 mg PO Q8HR PRN #20 tab.rapdis 05/26/19 Unknown Rx Acetaminophen [Non-Aspirin Extra 500 mg PO Q6HR PRN #30 tablet 05/31/20 Unknown Rx Strength] Yazmin Root [Yazmin] 250 mg PO QID PRN #30 capsule 05/31/20 Unknown Rx Ibuprofen [Motrin] 600 mg PO Q8H PRN #30 tablet 05/31/20 Unknown Rx Metoclopramide [Reglan] 10 mg PO QID PRN #30 tablet 05/31/20 Unknown Rx Nitrofurantoin Crane/M-Cryst 100 mg PO Q12HR #14 capsule 05/31/20 Unknown Rx [Macrobid CAP] Nitrofurantoin Crane/M-Cryst 100 mg PO Q12HR 10 Days #20 capsule 08/16/20 Unknown Rx [Macrobid CAP] Phenazopyridine [Pyridium] 100 mg PO TID #9 tab 08/16/20 Unknown Rx Acetaminophen/Codeine [Tylenol 1 tab PO Q6H PRN #14 tab 02/24/21 Unknown Rx /Codeine # 3 tab] Azithromycin [Zithromax Z-HENRI] 0 mg PO DAILY #6 tab 04/26/21 Unknown Rx predniSONE [Deltasone] 40 mg PO QDAY 5 Days #10 tab 04/26/21 Unknown Rx HYDROcodone/APAP 5-325 [[place] 1 - 2 each PO Q6HR PRN #14 tablet 07/04/21 Unknown Rx 5/325] Ibuprofen [Motrin 800 MG tab] 800 mg PO Q8HR PRN #20 tablet 07/04/21 Unknown Rx Sulfamethoxazole/Trimethoprim 1 each PO BID #20 tablet 07/04/21 Unknown Rx [Bactrim DS TAB] levoFLOXacin [Levaquin] 750 mg PO QDAY #10 tablet 07/04/21 Unknown Rx Azithromycin [Zithromax Z-HENRI] 250 mg PO DAILY #6 tablet 08/29/21 Unknown Rx Benzonatate [Tessalon Perles] 100 mg PO Q8HR #30 capsule 08/29/21 Unknown Rx Cetirizine HCl [Zyrtec 10mg tab] 10 mg PO DAILY #30 tablet 08/29/21 Unknown Rx Ibuprofen [Motrin 600 MG tab] 600 mg PO Q8H PRN #30 tablet 08/29/21 Unknown Rx levoFLOXacin [Levaquin TAB] 500 mg PO DAILY #7 09/24/21 Unknown Rx Cefdinir 300 mg PO BID #10 cap 11/18/21 Unknown Rx NIFEdipine XL [Procardia Xl] 30 mg PO QDAY #30 tablet 11/18/21 Unknown Rx Ondansetron (Nf) [Zofran TAB] 8 mg PO Q8HR PRN #12 tablet 11/18/21 Unknown Rx Pantoprazole [Protonix TAB] 40 mg PO QDAC #30 tablet 11/18/21 Unknown Rx metroNIDAZOLE [Flagyl TAB] 500 mg PO Q8HR #15 tablet 11/18/21 Unknown Rx hydrALAZINE [Apresoline TAB] 25 mg PO Q8HR #90 tablet 01/03/22 Unknown Rx Allergies Allergy/AdvReac Type Severity Reaction Status Date / Time Penicillins Allergy Itching Verified 04/13/22 06:01 ED Review of Systems ROS: Stated complaint: STOMACH PAIN Other details as noted in HPI Comment: All other systems reviewed and negative Constitutional: denies: chills, fever Eyes: denies: vision change ENT: denies: throat pain, congestion Respiratory: no symptoms reported. denies: cough, shortness of breath Cardiovascular: denies: chest pain, palpitations, edema Endocrine: denies: intolerance to cold Gastrointestinal: as per HPI Genitourinary: denies: urgency, dysuria, frequency Musculoskeletal: denies: back pain Skin: denies: rash, lesions, change in color Neurological: denies: headache, weakness, numbness, paresthesias, confusion Psychiatric: denies: anxiety, depression Hematological/Lymphatic: denies: easy bleeding, easy bruising ED Past Medical Hx - Past Medical History Hx Hypertension: Yes Hx Diabetes: Yes Hx Renal Disease: Yes Additional medical history: HERNIATED C-SPINE, dyslipidemia - Surgical History Additional Surgical History: Cervical spine surgery - Family History Family history: diabetes, hypertension - Social History Smoking Status: Former Smoker Substance Use Type: None - Medications Home Medications: Home Medications Medication Instructions Recorded Confirmed Last Taken Type Ketorolac Tromethamine [Acular] 1 - 2 drops OS Q6H PRN #1 bottle 09/11/18 Unkno wn Rx Tobramycin [Tobrex] 1 drop OP Q4H #1 bottle 09/11/18 Unknown Rx Enalapril Maleate [Vasotec] 20 mg PO DAILY #30 tablet 11/02/18 Unknown Rx Phenazopyridine [Pyridium] 200 mg PO TID #6 tab 11/02/18 Unknown Rx Sulfamethoxazole/Trimethoprim 1 each PO BID #6 tablet 11/02/18 Unknown Rx [Bactrim DS TAB] Clindamycin [Clindamycin CAP] 300 mg PO Q8H #10 cap 01/24/19 Unknown Rx Ibuprofen [Motrin 800 MG tab] 800 mg PO Q8HR PRN #30 tablet 01/24/19 Unknown Rx Doxycycline Hyclate [Doxycycline 100 mg PO Q12HR #20 tab 05/05/19 Unknown Rx Hyclate TAB] Ibuprofen [Motrin] 600 mg PO Q8H PRN #20 tablet 05/05/19 Unknown Rx Prednisone [predniSONE 10 mg 10 mg PO .TAPER #21 tab.ds.pk 05/05/19 Unknown Rx (6-Day Pack, 21 Tabs)] Benzonatate [Tessalon Perles] 100 mg PO Q8HR PRN #20 capsule 05/26/19 Unknown Rx Fluticasone [Flonase] 1 spray NS QDAY #1 bottle 05/26/19 Unknown Rx Loratadine (Nf) [Claritin] 10 mg PO DAILY #20 tablet 05/26/19 Unknown Rx Naproxen [Naprosyn] 500 mg PO BID #20 tablet 05/26/19 Unknown Rx Ondansetron [Zofran Odt] 4 mg PO Q8HR PRN #20 tab.rapdis 05/26/19 Unknown Rx Acetaminophen [Non-Aspirin Extra 500 mg PO Q6HR PRN #30 tablet 05/31/20 Unknown Rx Strength] Yazmin Root [Yazmin] 250 mg PO QID PRN #30 capsule 05/31/20 Unknown Rx Ibuprofen [Motrin] 600 mg PO Q8H PRN #30 tablet 05/31/20 Unknown Rx Metoclopramide [Reglan] 10 mg PO QID PRN #30 tablet 05/31/20 Unknown Rx Nitrofurantoin Crane/M-Cryst 100 mg PO Q12HR #14 capsule 05/31/20 Unknown Rx [Macrobid CAP] Nitrofurantoin Crane/M-Cryst 100 mg PO Q12HR 10 Days #20 capsule 08/16/20 Unknown Rx [Macrobid CAP] Phenazopyridine [Pyridium] 100 mg PO TID #9 tab 08/16/20 Unknown Rx Acetaminophen/Codeine [Tylenol 1 tab PO Q6H PRN #14 tab 02/24/21 Unknown Rx /Codeine # 3 tab] Azithromycin [Zithromax Z-HENRI] 0 mg PO DAILY #6 tab 04/26/21 Unknown Rx predniSONE [Deltasone] 40 mg PO QDAY 5 Days #10 tab 04/26/21 Unknown Rx HYDROcodone/APAP 5-325 [[place] 1 - 2 each PO Q6HR PRN #14 tablet 07/04/21 Unknown Rx 5/325] Ibuprofen [Motrin 800 MG tab] 800 mg PO Q8HR PRN #20 tablet 07/04/21 Unknown Rx Sulfamethoxazole/Trimethoprim 1 each PO BID #20 tablet 07/04/21 Unknown Rx [Bactrim DS TAB] levoFLOXacin [Levaquin] 750 mg PO QDAY #10 tablet 07/04/21 Unknown Rx Azithromycin [Zithromax Z-HENRI] 250 mg PO DAILY #6 tablet 08/29/21 Unknown Rx Benzonatate [Tessalon Perles] 100 mg PO Q8HR #30 capsule 08/29/21 Unknown Rx Cetirizine HCl [Zyrtec 10mg tab] 10 mg PO DAILY #30 tablet 08/29/21 Unknown Rx Ibuprofen [Motrin 600 MG tab] 600 mg PO Q8H PRN #30 tablet 08/29/21 Unknown Rx levoFLOXacin [Levaquin TAB] 500 mg PO DAILY #7 09/24/21 Unknown Rx AtorvaSTATin [Lipitor] 20 mg PO DAILY 11/13/21 01/02/22 1 Day Ago History ~11/12/21 Insulin NPH Hum/Reg Insulin Hm 25 unit SQ BID 11/13/21 01/02/22 11/12/21 History [Humulin 70-30 Vial] Multivitamin 1 each PO QDAY 11/13/21 01/02/22 11/12/21 History Valsartan [Diovan] 160 mg PO QDAY 11/13/21 01/02/22 11/12/21 History tiZANidine [Zanaflex 4mg TAB] 4 mg PO BID PRN 11/13/21 01/02/22 11/12/21 History Cefdinir 300 mg PO BID #10 cap 11/18/21 01/02/22 Unknown Rx NIFEdipine XL [Procardia Xl] 30 mg PO QDAY #30 tablet 11/18/21 01/02/22 Unknown Rx Ondansetron (Nf) [Zofran TAB] 8 mg PO Q8HR PRN #12 tablet 11/18/21 01/02/22 Unknown Rx Pantoprazole [Protonix TAB] 40 mg PO QDAC #30 tablet 11/18/21 01/02/22 Unknown Rx metroNIDAZOLE [Flagyl TAB] 500 mg PO Q8HR #15 tablet 11/18/21 01/02/22 Unknown Rx hydrALAZINE [Apresoline TAB] 25 mg PO Q8HR #90 tablet 01/03/22 Unknown Rx ED Physical Exam - General Limitations: No Limitations General appearance: alert, in no apparent distress - Head Head exam: Present: atraumatic, normocephalic - Eye Eye exam: Present: normal appearance - ENT ENT exam: Present: mucous membranes moist - Neck Neck exam: Present: normal inspection, full ROM - Respiratory Respiratory exam: Present: normal lung sounds bilaterally. Absent: respiratory distress, wheezes, rales, rhonchi - Cardiovascular Cardiovascular Exam: Present: regular rate, normal rhythm, normal heart sounds - GI/Abdominal GI/Abdominal exam: Present: soft, tenderness (Diffuse), normal bowel sounds. Absent: distended, guarding, rebound, rigid - Extremities Exam Extremities exam: Present: normal inspection, normal capillary refill. Absent: pedal edema - Back Exam Back exam: Present: normal inspection. Absent: tenderness, CVA tenderness (R), CVA tenderness (L) - Neurological Exam Neurological exam: Present: alert, oriented X3, CN II-XII intact, normal gait - Psychiatric Psychiatric exam: Present: normal affect, normal mood - Skin Skin exam: Present: warm, dry, intact, normal color ED Course Vital Signs 04/30/22 14:00 Temperature 98.8 F Pulse Rate 80 Respiratory 18 Rate Blood Pressure 162/81 [Left] O2 Sat by Pulse 99 Oximetry - Reevaluation(s) Reevaluation #1: 04/30/22 19:26 Some improvement in pain to 4 out of 10 but requests more pain medicine. Reevaluation #2: 04/30/22 21:45 Consult Surgery Reevaluation #3: 04/30/22 22:39 Dr. Amato evaluated the patient and did not feel her CT findings were surgical and that she should pass the foreign body on her own without difficulty. He was concerned about her BUN. I discussed this again with the patient and she did see Dr. Cruz (nephrology) on April 14 and he ordered some lab work but she has not gotten those results as of yet. Call placed to him to discuss her current results. Reevaluation #4: 04/30/22 22:48 Abdomen remains soft with transient tenderness. No rebound. Case discussed with Dr. Cruz and he believes that this can be handled outpatient on Tuesday in terms of her kidney. Reevaluation #5: 04/30/22 23:17 Patient's pain 2 out of 10 after Percocet. ED Medical Decision Making - Lab Data Result diagrams: 04/30/22 14:29 04/30/22 14:29 - Radiology Data Radiology results: report reviewed, image reviewed [facility] [address] [place] [address] Cat Scan Report Signed Patient: LISA ROY MR#: [id number] : 1970 Acct:[id number] Age/Sex: 52 / F ADM Date: 04/30/22 Loc: ED Attending Dr: Ordering Physician: SUZIE RICHARDS Date of Service: 04/30/22 Procedure(s): CT abdomen pelvis wo con Accession Number(s): [id number] cc: SUZIE RICHARDS CT ABDOMEN AND PELVIS WITHOUT CONTRAST INDICATION / CLINICAL INFORMATION: Abdominal Pain. TECHNIQUE: Axial CT images were obtained through the abdomen and pelvis without IV contrast. All CT scans at this location are performed using CT dose reduction for ALARA by means of automated exposure control. COMPARISON: CT dated 11/12/21 FINDINGS: LOWER CHEST: No significant abnormality. LIVER: No significant abnormality. GALLBLADDER: Cholecystectomy. BILE DUCTS: No significant abnormality. PANCREAS: No significant abnormality. SPLEEN: No significant abnormality. ADRENALS: No significant abnormality. RIGHT KIDNEY / URETER: No significant abnormality. LEFT KIDNEY / URETER: No significant abnormality. STOMACH / SMALL BOWEL: Several thickened loops of proximal small bowel in the left midabdomen with adjacent mesenteric edema best seen on axial series 2 image 104. 9 mm linear hyperdensity along the lateral wall of one of the loops of bowel may represent an ingested foreign body. This is best seen on axial series 2 image 87 and coronal series 601 image 49. Distal small bowel appears normal. COLON: No significant abnormality. APPENDIX: Not visualized. PERITONEUM: Small amount of free fluid in the pelvis. No free air. No fluid collection. LYMPH NODES: No significant adenopathy. AORTA / ARTERIES: No significant abnormality. IVC / VEINS: No significant abnormality. URINARY BLADDER: No significant abnormality. REPRODUCTIVE ORGANS: Uterus is absent. No significant adnexal abnormality. ADDITIONAL FINDINGS: None. SKELETAL SYSTEM: No significant abnormality. IMPRESSION: 1. Several loops of thickened proximal small bowel left midabdomen with possible ingested foreign body. Mild mesenteric edema. 2. Small amount of free fluid in the pelvis. No free air. Signer Name: Lyn Holman MD Signed: 04/30/2022 6:29 PM Workstation Name: [id number] Transcribed By: MONI Dictated By: Marco Antonio Holman MD Electronically Authenticated By: Marco Antonio Holman MD Signed Date/Time: 04/30/221828 DD/ 24 TD/TT: Print - Medical Decision Making Case discussed with Dr. Amato (Surgeon reporting consultant) and he plans to come in and see the patient here in the emergency department. See ED course. Patient will follow up with on Tuesday. Plenty of fluids in the interim. Tylenol only for pain given constipation and narcotics worsening of same. - Differential Diagnosis Abdominal pain. Constipation. Bowel obstruction. Ingested foreign body. Critical care attestation.: If time is entered above; I have spent that time in minutes in the direct care of this critically ill patient, excluding procedure time. ED Disposition Clinical Impression: Renal insufficiency Abdominal pain Qualifiers: Abdominal location: generalized Qualified Code(s): R10.84 - Generalized abdominal pain Constipation Qualifiers: Constipation type: other constipation type Qualified Code(s): K59.09 - Other constipation Disposition: HOME / SELF CARE / HOMELESS Is pt being admited?: No Condition: Stable Instructions: Food Basics for Chronic Kidney Disease, Constipation, Adult, Abdominal Pain, Adult, [id number], Preventing Chronic Kidney Disease, Chronic Kidney Disease, Adult, Abdominal Pain (ED) Additional Instructions: Stool softener ([id number] Ducosate sodium). Fluids. Follow-up with your master lay out specialist on Tuesday. Follow up with Dr Amato on Tuesday as referred. Return if worse. Tylenol only as needed for pain. Referrals: DOLLY AMATO MD [Staff Physician] - 3-5 Days TRINIDAD CRUZ MD [Staff Physician] - 3-5 Days Forms: Work/School Release Form(ED) Time of Disposition: 22:58
--- NOTE | 2022-04-30 18:34 | Cat Scan Report ---
CT ABDOMEN AND PELVIS WITHOUT CONTRAST INDICATION / CLINICAL INFORMATION: Abdominal Pain. TECHNIQUE: Axial CT images were obtained through the abdomen and pelvis without IV contrast. All CT scans at this location are performed using CT dose reduction for ALARA by means of automated exposure control. COMPARISON: CT dated 11/12/21 FINDINGS: LOWER CHEST: No significant abnormality. LIVER: No significant abnormality. GALLBLADDER: Cholecystectomy. BILE DUCTS: No significant abnormality. PANCREAS: No significant abnormality. SPLEEN: No significant abnormality. ADRENALS: No significant abnormality. RIGHT KIDNEY / URETER: No significant abnormality. LEFT KIDNEY / URETER: No significant abnormality. STOMACH / SMALL BOWEL: Several thickened loops of proximal small bowel in the left midabdomen with ad jacent mesenteric edema best seen on axial series 2 image 104. 9 mm linear hyperdensity along the lat eral wall of one of the loops of bowel may represent an ingested foreign body. This is best seen on a xial series 2 image 87 and coronal series 601 image 49. Distal small bowel appears normal. COLON: No significant abnormality. APPENDIX: Not visualized. PERITONEUM: Small amount of free fluid in the pelvis. No free air. No fluid collection. LYMPH NODES: No significant adenopathy. AORTA / ARTERIES: No significant abnormality. IVC / VEINS: No significant abnormality. URINARY BLADDER: No significant abnormality. REPRODUCTIVE ORGANS: Uterus is absent. No significant adnexal abnormality. ADDITIONAL FINDINGS: None. SKELETAL SYSTEM: No significant abnormality. IMPRESSION: 1. Several loops of thickened proximal small bowel left midabdomen with possible ingested foreign bod y. Mild mesenteric edema. 2. Small amount of free fluid in the pelvis. No free air. Signer Name: Lyn Holman MD Signed: 04/30/2022 6:29 PM Workstation Name: [id number]
[2022-04-30] MEDS ORDERED: MORPHINE 4 MG/1 ML INJ IV ONE ×2 (19:12→21:43)
[2022-04-30] MEDS ORDERED: INSULIN REGULAR, HUMAN 100 UNITS/1 ML ONE (19:52)
[2022-04-30 19:57] LABS: Mucus,Urine FEW /HPF
[2022-04-30 20:26] LABS: Color,Urine Yellow (Yellow); Ictotest,Urine Negative (Negative)
[2022-04-30] MEDS ORDERED: oxyCODONE /ACETAMINOPHEN 5-325MG TAB PO ONE (22:48)
--- NOTE | 2022-04-30 22:52 | Consultation ---
History of Present Illness Consult date: 04/30/22 Reason for consult: abdominal pain - History of present illness History of present illness: Patient is a 52-year-old insulin-dependent diabetic with history of peptic ulcer disease who presents with epigastric abdominal pain for 3 days. She states initially she was unable to have a bowel movement but took some Pepto-Bismol and yesterday had a large liquid stool. She has been vomiting since onset of the pain and had a fever yesterday. She believes the symptoms came on because of some fried chicken she ate the day prior to onset of symptoms, but came here as it was not improving. She denies any dysuria urgency frequency vaginal discharge or bleeding. She is status post total hysterectomy with bilateral salpingo-oophorectomy. Denies hematochezia or melena. Primary care doctor is Tahir Day ([facility]), nephrology is Alysa Ibarra, GI: Christiano Lu. CT scan of the abdomen pelvis is significant for some vague changes into the mesentery small bowel in the left upper quadrant. There is also a metallic foreign body about 1 or 2 mm x 7 or 8 mm. Patient's lab is significant for an abrupt change in her renal function labs taken in December of this year 2021 are relatively normal. Tonight's labs show BUN of 46 and creatinine 2.74 GFR of 18 his GFR was greater than 60 in December. Her white count is 7100 hemoglobin 9.8. The surgical consultation is for the evaluation abdominal pain and the potential impact of the foreign body on the abdominal pain. Medications and Allergies Allergies Allergy/AdvReac Type Severity Reaction Status Date / Time Penicillins Allergy Itching Verified 04/13/22 06:01 Home Medications Medication Instructions Recorded Confirmed Last Taken Type Ketorolac Tromethamine [Acular] 1 - 2 drops OS Q6H PRN #1 bottle 09/11/18 Unknown Rx Tobramycin [Tobrex] 1 drop OP Q4H #1 bottle 09/11/18 Unknown Rx Enalapril Maleate [Vasotec] 20 mg PO DAILY #30 tablet 11/02/18 Unknown Rx Phenazopyridine [Pyridium] 200 mg PO TID #6 tab 11/02/18 Unknown Rx Sulfamethoxazole/Trimethoprim 1 each PO BID #6 tablet 11/02/18 Unknown Rx [Bactrim DS TAB] Clindamycin [Clindamycin CAP] 300 mg PO Q8H #10 cap 01/24/19 Unknown Rx Ibuprofen [Motrin 800 MG tab] 800 mg PO Q8HR PRN #30 tablet 01/24/19 Unknown Rx Doxycycline Hyclate [Doxycycline 100 mg PO Q12HR #20 tab 05/05/19 Unknown Rx Hyclate TAB] Ibuprofen [Motrin] 600 mg PO Q8H PRN #20 tablet 05/05/19 Unknown Rx Prednisone [predniSONE 10 mg 10 mg PO .TAPER #21 tab.ds.pk 05/05/19 Unknown Rx (6-Day Pack, 21 Tabs)] Benzonatate [Tessalon Perles] 100 mg PO Q8HR PRN #20 capsule 05/26/19 Unknown Rx Fluticasone [Flonase] 1 spray NS QDAY #1 bottle 05/26/19 Unknown Rx Loratadine (Nf) [Claritin] 10 mg PO DAILY #20 tablet 05/26/19 Unknown Rx Naproxen [Naprosyn] 500 mg PO BID #20 tablet 05/26/19 Unknown Rx Ondansetron [Zofran Odt] 4 mg PO Q8HR PRN #20 tab.rapdis 05/26/19 Unknown Rx Acetaminophen [Non-Aspirin Extra 500 mg PO Q6HR PRN #30 tablet 05/31/20 Unknown Rx Strength] Yazmin Root [Yazmin] 250 mg PO QID PRN #30 capsule 05/31/20 Unknown Rx Ibuprofen [Motrin] 600 mg PO Q8H PRN #30 tablet 05/31/20 Unknown Rx Metoclopramide [Reglan] 10 mg PO QID PRN #30 tablet 05/31/20 Unknown Rx Nitrofurantoin [place]/M-Cryst 100 mg PO Q12HR #14 capsule 05/31/20 Unknown Rx [Macrobid CAP] Nitrofurantoin [place]/M-Cryst 100 mg PO Q12HR 10 Days #20 capsule 08/16/20 Unknown Rx [Macrobid CAP] Phenazopyridine [Pyridium] 100 mg PO TID #9 tab 08/16/20 Unknown Rx Acetaminophen/Codeine [Tylenol 1 tab PO Q6H PRN #14 tab 02/24/21 Unknown Rx /Codeine # 3 tab] Azithromycin [Zithromax Z-HENRI] 0 mg PO DAILY #6 tab 04/26/21 Unknown Rx predniSONE [Deltasone] 40 mg PO QDAY 5 Days #10 tab 04/26/21 Unknown Rx HYDROcodone/APAP 5-325 [[place] 1 - 2 each PO Q6HR PRN #14 tablet 07/04/21 Unknown Rx 5/325] Ibuprofen [Motrin 800 MG tab] 800 mg PO Q8HR PRN #20 tablet 07/04/21 Unknown Rx Sulfamethoxazole/Trimethoprim 1 each PO BID #20 tablet 07/04/21 Unknown Rx [Bactrim DS TAB] levoFLOXacin [Levaquin] 750 mg PO QDAY #10 tablet 07/04/21 Unknown Rx Azithromycin [Zithromax Z-HENRI] 250 mg PO DAILY #6 tablet 08/29/21 Unknown Rx Benzonatate [Tessalon Perles] 100 mg PO Q8HR #30 capsule 08/29/21 Unknown Rx Cetirizine HCl [Zyrtec 10mg tab] 10 mg PO DAILY #30 tablet 08/29/21 Unknown Rx Ibuprofen [Motrin 600 MG tab] 600 mg PO Q8H PRN #30 tablet 08/29/21 Unknown Rx levoFLOXacin [Levaquin TAB] 500 mg PO DAILY #7 09/24/21 Unknown Rx AtorvaSTATin [Lipitor] 20 mg PO DAILY 11/13/21 01/02/22 1 Day Ago History ~11/12/21 Insulin NPH Hum/Reg Insulin Hm 25 unit SQ BID 11/13/21 01/02/22 11/12/21 History [Humulin 70-30 Vial] Multivitamin 1 each PO QDAY 11/13/21 01/02/22 11/12/21 History Valsartan [Diovan] 160 mg PO QDAY 11/13/21 01/02/22 11/12/21 History tiZANidine [Zanaflex 4mg TAB] 4 mg PO BID PRN 11/13/21 01/02/22 11/12/21 History Cefdinir 300 mg PO BID #10 cap 11/18/21 01/02/22 Unknown Rx NIFEdipine XL [Procardia Xl] 30 mg PO QDAY #30 tablet 11/18/21 01/02/22 Unknown Rx Ondansetron (Nf) [Zofran TAB] 8 mg PO Q8HR PRN #12 tablet 11/18/21 01/02/22 Unknown Rx Pantoprazole [Protonix TAB] 40 mg PO QDAC #30 tablet 11/18/21 01/02/22 Unknown Rx metroNIDAZOLE [Flagyl TAB] 500 mg PO Q8HR #15 tablet 11/18/21 01/02/22 Unknown Rx hydrALAZINE [Apresoline TAB] 25 mg PO Q8HR #90 tablet 01/03/22 Unknown Rx Exam Vital Signs Temp Pulse Resp BP Pulse Ox 98.8 F 80 18 162/81 99 04/30/22 14:00 04/30/22 14:00 04/30/22 14:00 04/30/22 14:00 04/30/22 14:00 - General physical appearance Positive: well developed - Eyes Positive: PERRL - Neck Positive: no masses, no bruits, trachea midline - Respiratory Positive: normal expansion - Cardiovascular Rhythm: regular - Extremities Extremities: no ischemia, No edema - Abdomen Abdomen: Present: soft, tender, bowel sounds normal. Absent: distended, masses, rebound, guarding, rigid Hernia: none - Neurologic Neurologic: alert and oriented to time, place and person, motor strength and sensation are grossly intact, CN II-XII intact - Psychiatric Psychiatric: appropriate mood/affect Results - Labs 04/30/22 14:29 04/30/22 14:29 Abnormal lab results 04/30/22 04/30/22 04/30/22 Range/Units 14:29 14:29 19:23 Hgb 9.8 L (10.1-14.3) gm/dl Hct 28.7 L (30.3-42.9) % MCV 76 L (79-97) fl MCH 26 L (28-32) pg Seg Neutrophils % 75.0 H (40.0-70.0) % BUN 46 H (7-17) mg/dL Creatinine 2.7 H (0.6-1.2) mg/dL Glucose 270 H (65-100) mg/dL Fasting Glucose 242 H (65-100) mg/dL Total Protein 5.0 L (6.3-8.2) g/dL Albumin 2.8 L (3.9-5) g/dL Diabetes panel 04/30/22 Range/Units 14:29 Sodium 141 (137-145) mmol/L Potassium 4.4 (3.6-5.0) mmol/L Chloride 106.6 (98-107) mmol/L Carbon Dioxide 24 (22-30) mmol/L BUN 46 H (7-17) mg/dL Creatinine 2.7 H (0.6-1.2) mg/dL Glucose 270 H (65-100) mg/dL Calcium 8.6 (8.4-10.2) mg/dL AST 15 (5-40) units/L ALT 13 (7-56) units/L Alkaline Phosphatase 104 (35-129) units/L Total Protein 5.0 L (6.3-8.2) g/dL Albumin 2.8 L (3.9-5) g/dL Calcium panel 04/30/22 Range/Units 14:29 Calcium 8.6 (8.4-10.2) mg/dL Albumin 2.8 L (3.9-5) g/dL Pituitary panel 04/30/22 Range/Units 14:29 Sodium 141 (137-145) mmol/L Potassium 4.4 (3.6-5.0) mmol/L Chloride 106.6 (98-107) mmol/L Carbon Dioxide 24 (22-30) mmol/L BUN 46 H (7-17) mg/dL Creatinine 2.7 H (0.6-1.2) mg/dL Glucose 270 H (65-100) mg/dL Calcium 8.6 (8.4-10.2) mg/dL Adrenal panel 04/30/22 Range/Units 14:29 Sodium 141 (137-145) mmol/L Potassium 4.4 (3.6-5.0) mmol/L Chloride 106.6 (98-107) mmol/L Carbon Dioxide 24 (22-30) mmol/L BUN 46 H (7-17) mg/dL Creatinine 2.7 H (0.6-1.2) mg/dL Glucose 270 H (65-100) mg/dL Calcium 8.6 (8.4-10.2) mg/dL Total Bilirubin < 0.20 (0.1-1.2) mg/dL AST 15 (5-40) units/L ALT 13 (7-56) units/L Alkaline Phosphatase 104 (35-129) units/L Total Protein 5.0 L (6.3-8.2) g/dL Albumin 2.8 L (3.9-5) g/dL Assessment and Plan This is a 52-year-old female with vague upper abdominal pain for about a weeks duration. White count is normal. She is having some nausea and vomiting. She also has an acute change in her renal function. Would favor admission for IV fluids limited p.o. intake. Possibly code liquid diet at this time. We will continue to follow the abdominal pain with you. Repeating the CAT scan in a day or 2 to recheck the position of the metallic foreign body.
== END 2022-05-01 00:20 | disposition home or self-care (01) ==
LOC: ED 13:18
DX: N28.9 Disorder of kidney and ureter, unspecified (principal); R10.9 Unspecified abdominal pain; K59.09 Other constipation; Z88.0 Allergy status to penicillin
CPT/HCPCS: 36415; 74176; 80053; 81001; 82270; 82947; 83690; 84703; 85025; 96361; 96374; 96375; 96376; 99284; J2270; J7040; Q9967; J1815

== ENCOUNTER 2022-05-13 14:22 | Emergency (ER) | payer MEDICAID ==
[2022-05-13] MEDS ORDERED: ACETAMINOPHEN 500 MG TAB PO ONE (19:38)
[2022-05-13] MEDS ORDERED: hydrALAZINE 100 MG TAB PO ONE (19:38)
--- NOTE | 2022-05-13 19:41 | Emergency Department Report ---
ED General Adult HPI - General Chief complaint: Eye Problems Stated complaint: EYE PAIN Time Seen by Provider: 05/13/22 19:25 Source: patient Mode of arrival: Ambulatory Limitations: No Limitations - History of Present Illness Initial comments: 52-year-old female who presents for*states burning itching headache on yesterday. However symptoms resolved after rupture. Patient has history of hypertension and diabetes. States intermittent adherence to BP medications. There is no decreased vision no dizziness no nausea no vomiting has been no fall injury or head trauma. Visual acuity acuity is 20/30 bilaterally. Patient does not wear glasses. Patient denies symptoms at this time. - Related Data Home Medications Medication Instructions Recorded Confirmed Last Taken AtorvaSTATin [Lipitor] 20 mg PO DAILY 11/13/21 01/02/22 1 Day Ago ~11/12/21 Insulin NPH Hum/Reg Insulin Hm 25 unit SQ BID 11/13/21 01/02/22 11/12/21 [Humulin 70-30 Vial] Multivitamin 1 each PO QDAY 11/13/21 01/02/22 11/12/21 Valsartan [Diovan] 160 mg PO QDAY 11/13/21 01/02/22 11/12/21 tiZANidine [Zanaflex 4mg TAB] 4 mg PO BID PRN 11/13/21 01/02/22 11/12/21 Previous Rx's Medication Instructions Recorded Last Taken Type Ketorolac Tromethamine [Acular] 1 - 2 drops OS Q6H PRN #1 bottle 09/11/18 Unknown Rx Tobramycin [Tobrex] 1 drop OP Q4H #1 bottle 09/11/18 Unknown Rx Enalapril Maleate [Vasotec] 20 mg PO DAILY #30 tablet 11/02/18 Unknown Rx Phenazopyridine [Pyridium] 200 mg PO TID #6 tab 11/02/18 Unknown Rx Sulfamethoxazole/Trimethoprim 1 each PO BID #6 tablet 11/02/18 Unknown Rx [Bactrim DS TAB] Clindamycin [Clindamycin CAP] 300 mg PO Q8H #10 cap 01/24/19 Unknown Rx Ibuprofen [Motrin 800 MG tab] 800 mg PO Q8HR PRN #30 tablet 01/24/19 Unknown Rx Doxycycline Hyclate [Doxycycline 100 mg PO Q12HR #20 tab 05/05/19 Unknown Rx Hyclate TAB] Ibuprofen [Motrin] 600 mg PO Q8H PRN #20 tablet 05/05/19 Unknown Rx Prednisone [predniSONE 10 mg 10 mg PO .TAPER #21 tab.ds.pk 05/05/19 Unknown Rx (6-Day Pack, 21 Tabs)] Benzonatate [Tessalon Perles] 100 mg PO Q8HR PRN #20 capsule 05/26/19 Unknown Rx Fluticasone [Flonase] 1 spray NS QDAY #1 bottle 05/26/19 Unknown Rx Loratadine (Nf) [Claritin] 10 mg PO DAILY #20 tablet 05/26/19 Unknown Rx Naproxen [Naprosyn] 500 mg PO BID #20 tablet 05/26/19 Unknown Rx Ondansetron [Zofran Odt] 4 mg PO Q8HR PRN #20 tab.rapdis 05/26/19 Unknown Rx Acetaminophen [Non-Aspirin Extra 500 mg PO Q6HR PRN #30 tablet 05/31/20 Unknown Rx Strength] Yazmin Root [Yazmin] 250 mg PO QID PRN #30 capsule 05/31/20 Unknown Rx Ibuprofen [Motrin] 600 mg PO Q8H PRN #30 tablet 05/31/20 Unknown Rx Metoclopramide [Reglan] 10 mg PO QID PRN #30 tablet 05/31/20 Unknown Rx Nitrofurantoin [place]/M-Cryst 100 mg PO Q12HR #14 capsule 05/31/20 Unknown Rx [Macrobid CAP] Nitrofurantoin [place]/M-Cryst 100 mg PO Q12HR 10 Days #20 capsule 08/16/20 Unknown Rx [Macrobid CAP] Phenazopyridine [Pyridium] 100 mg PO TID #9 tab 08/16/20 Unknown Rx Acetaminophen/Codeine [Tylenol 1 tab PO Q6H PRN #14 tab 02/24/21 Unknown Rx /Codeine # 3 tab] Azithromycin [Zithromax Z-HENRI] 0 mg PO DAILY #6 tab 04/26/21 Unknown Rx predniSONE [Deltasone] 40 mg PO QDAY 5 Days #10 tab 04/26/21 Unknown Rx HYDROcodone/APAP 5-325 [[place] 1 - 2 each PO Q6HR PRN #14 tablet 07/04/21 Unknown Rx 5/325] Ibuprofen [Motrin 800 MG tab] 800 mg PO Q8HR PRN #20 tablet 07/04/21 Unknown Rx Sulfamethoxazole/Trimethoprim 1 each PO BID #20 tablet 07/04/21 Unknown Rx [Bactrim DS TAB] levoFLOXacin [Levaquin] 750 mg PO QDAY #10 tablet 07/04/21 Unknown Rx Azithromycin [Zithromax Z-HENRI] 250 mg PO DAILY #6 tablet 08/29/21 Unknown Rx Benzonatate [Tessalon Perles] 100 mg PO Q8HR #30 capsule 08/29/21 Unknown Rx Cetirizine HCl [Zyrtec 10mg tab] 10 mg PO DAILY #30 tablet 08/29/21 Unknown Rx Ibuprofen [Motrin 600 MG tab] 600 mg PO Q8H PRN #30 tablet 08/29/21 Unknown Rx levoFLOXacin [Levaquin TAB] 500 mg PO DAILY #7 09/24/21 Unknown Rx Cefdinir 300 mg PO BID #10 cap 11/18/21 Unknown Rx NIFEdipine XL [Procardia Xl] 30 mg PO QDAY #30 tablet 11/18/21 Unknown Rx Ondansetron (Nf) [Zofran TAB] 8 mg PO Q8HR PRN #12 tablet 11/18/21 Unknown Rx Pantoprazole [Protonix TAB] 40 mg PO QDAC #30 tablet 11/18/21 Unknown Rx metroNIDAZOLE [Flagyl TAB] 500 mg PO Q8HR #15 tablet 11/18/21 Unknown Rx hydrALAZINE [Apresoline TAB] 25 mg PO Q8HR #90 tablet 01/03/22 Unknown Rx Polymyxin B Sulf/Trimethoprim 2 drop OP Q3H #10 ml 05/13/22 Unknown Rx [Polytrim Eye Drops] amLODIPine 5 mg PO DAILY #30 tab 05/13/22 Unknown Rx Allergies Allergy/AdvReac Type Severity Reaction Status Date / Time Penicillins Allergy Itching Verified 04/13/22 06:01 ED Review of Systems ROS: Stated complaint: EYE PAIN Other details as noted in HPI Constitutional: denies: chills, fever Eyes: eye pain. denies: eye discharge, vision change (Subconjunctival hematoma) ENT: denies: ear pain, throat pain, congestion Respiratory: denies: cough, shortness of breath, wheezing Cardiovascular: denies: chest pain, palpitations Endocrine: no symptoms reported Gastrointestinal: denies: abdominal pain, nausea, diarrhea Genitourinary: denies: urgency, dysuria, discharge Musculoskeletal: denies: back pain, joint swelling, arthralgia Skin: denies: rash, lesions Neurological: headache. denies: weakness, numbness, paresthesias, confusion, vertigo Psychiatric: as per HPI ED Past Medical Hx - Past Medical History Previous Medical History?: Yes Hx Hypertension: Yes (medicated) Hx Diabetes: Yes Hx Renal Disease: Yes Additional medical history: HERNIATED C-SPINE, dyslipidemia - Surgical History Past Surgical History?: Yes Additional Surgical History: Cervical spine surgery - Social History Smoking Status: Never Smoker Substance Use Type: None - Medications Home Medications: Home Medications Medication Instructions Recorded Confirmed Last Taken Type Ketorolac Tromethamine [Acular] 1 - 2 drops OS Q6H PRN #1 bottle 09/11/18 Unknown Rx Tobramycin [Tobrex] 1 drop OP Q4H #1 bottle 09/11/18 Unknown Rx Enalapril Maleate [Vasotec] 20 mg PO DAILY #30 tablet 11/02/18 Unknown Rx Phenazopyridine [Pyridium] 200 mg PO TID #6 tab 11/02/18 Unknown Rx Sulfamethoxazole/Trimethoprim 1 each PO BID #6 tablet 11/02/18 Unknown Rx [Bactrim DS TAB] Clindamycin [Clindamycin CAP] 300 mg PO Q8H #10 cap 01/24/19 Unknown Rx Ibuprofen [Motrin 800 MG tab] 800 mg PO Q8HR PRN #30 tablet 01/24/19 Unknown Rx Doxycycline Hyclate [Doxycycline 100 mg PO Q12HR #20 tab 05/05/19 Unknown Rx Hyclate TAB] Ibuprofen [Motrin] 600 mg PO Q8H PRN #20 tablet 05/05/19 Unknown Rx Prednisone [predniSONE 10 mg 10 mg PO .TAPER #21 tab.ds.pk 05/05/19 Unknown Rx (6-Day Pack, 21 Tabs)] Benzonatate [Tessalon Perles] 100 mg PO Q8HR PRN #20 capsule 05/26/19 Unknown Rx Fluticasone [Flonase] 1 spray NS QDAY #1 bottle 05/26/19 Unknown Rx Loratadine (Nf) [Claritin] 10 mg PO DAILY #20 tablet 05/26/19 Unknown Rx Naproxen [Naprosyn] 500 mg PO BID #20 tablet 05/26/19 Unknown Rx Ondansetron [Zofran Odt] 4 mg PO Q8HR PRN #20 tab.rapdis 05/26/19 Unknown Rx Acetaminophen [Non-Aspirin Extra 500 mg PO Q6HR PRN #30 tablet 05/31/20 Unknown Rx Strength] Yazmin Root [Yazmin] 250 mg PO QID PRN #30 capsule 05/31/20 Unknown Rx Ibuprofen [Motrin] 600 mg PO Q8H PRN #30 tablet 05/31/20 Unknown Rx Metoclopramide [Reglan] 10 mg PO QID PRN #30 tablet 05/31/20 Unknown Rx Nitrofurantoin [place]/M-Cryst 100 mg PO Q12HR #14 capsule 05/31/20 Unknown Rx [Macrobid CAP] Nitrofurantoin [place]/M-Cryst 100 mg PO Q12HR 10 Days #20 capsule 08/16/20 Unknown Rx [Macrobid CAP] Phenazopyridine [Pyridium] 100 mg PO TID #9 tab 08/16/20 Unknown Rx Acetaminophen/Codeine [Tylenol 1 tab PO Q6H PRN #14 tab 02/24/21 Unknown Rx /Codeine # 3 tab] Azithromycin [Zithromax Z-HENRI] 0 mg PO DAILY #6 tab 04/26/21 Unknown Rx predniSONE [Deltasone] 40 mg PO QDAY 5 Days #10 tab 04/26/21 Unknown Rx HYDROcodone/APAP 5-325 [[place] 1 - 2 each PO Q6HR PRN #14 tablet 07/04/21 Unknown Rx 5/325] Ibuprofen [Motrin 800 MG tab] 800 mg PO Q8HR PRN #20 tablet 07/04/21 Unknown Rx Sulfamethoxazole/Trimethoprim 1 each PO BID #20 tablet 07/04/21 Unknown Rx [Bactrim DS TAB] levoFLOXacin [Levaquin] 750 mg PO QDAY #10 tablet 07/04/21 Unknown Rx Azithromycin [Zithromax Z-HENRI] 250 mg PO DAILY #6 tablet 08/29/21 Unknown Rx Benzonatate [Tessalon Perles] 100 mg PO Q8HR #30 capsule 08/29/21 Unknown Rx Cetirizine HCl [Zyrtec 10mg tab] 10 mg PO DAILY #30 tablet 08/29/21 Unknown Rx Ibuprofen [Motrin 600 MG tab] 600 mg PO Q8H PRN #30 tablet 08/29/21 Unknown Rx levoFLOXacin [Levaquin TAB] 500 mg PO DAILY #7 09/24/21 Unknown Rx AtorvaSTATin [Lipitor] 20 mg PO DAILY 11/13/21 01/02/22 1 Day Ago History ~11/12/21 Insulin NPH Hum/Reg Insulin Hm 25 unit SQ BID 11/13/21 01/02/22 11/12/21 History [Humulin 70-30 Vial] Multivitamin 1 each PO QDAY 11/13/21 01/02/22 11/12/21 History Valsartan [Diovan] 160 mg PO QDAY 11/13/21 01/02/22 11/12/21 History tiZANidine [Zanaflex 4mg TAB] 4 mg PO BID PRN 11/13/21 01/02/22 11/12/21 History Cefdinir 300 mg PO BID #10 cap 11/18/21 01/02/22 Unknown Rx NIFEdipine XL [Procardia Xl] 30 mg PO QDAY #30 tablet 11/18/21 01/02/22 Unknown Rx Ondansetron (Nf) [Zofran TAB] 8 mg PO Q8HR PRN #12 tablet 11/18/21 01/02/22 Unknown Rx Pantoprazole [Protonix TAB] 40 mg PO QDAC #30 tablet 11/18/21 01/02/22 Unknown Rx metroNIDAZOLE [Flagyl TAB] 500 mg PO Q8HR #15 tablet 11/18/21 01/02/22 Unknown Rx hydrALAZINE [Apresoline TAB] 25 mg PO Q8HR #90 tablet 01/03/22 Unknown Rx Polymyxin B Sulf/Trimethoprim 2 drop OP Q3H #10 ml 05/13/22 Unknown Rx [Polytrim Eye Drops] amLODIPine 5 mg PO DAILY #30 tab 05/13/22 Unknown Rx ED Physical Exam - General Limitations: No Limitations General appearance: alert, in no apparent distress - Head Head exam: Present: normocephalic, normal inspection - Eye Eye exam: Present: PERRL, EOMI, conjunctival injection. Absent: nystagmus, periorbital swelling, periorbital tenderness Pupils: Present: normal accommodation, other (Subconjunctival hematoma at 5:00) - Expanded Eye Exam Expanded Pupils: Regular, Round: Bilateral, Reactive: Bilateral Sclera/Conjunctival: Hemorrhage: Right (At 5:00 small) Anterior chamber: Hyphema: Right Posterior chamber: Deferred: Bilateral Visual acuity (R) = 20/: 30 Visual acuity (L) = 20/: 30 With correction: No - ENT ENT exam: Present: normal orophraynx, mucous membranes moist, TM's normal renay aterally - Neck Neck exam: Present: normal inspection, full ROM. Absent: tenderness, lymphadenopathy - Respiratory Respiratory exam: Present: normal lung sounds bilaterally. Absent: respiratory distress, wheezes - Cardiovascular Cardiovascular Exam: Present: regular rate, normal rhythm, normal heart sounds. Absent: systolic murmur, diastolic murmur, rubs, gallop - GI/Abdominal GI/Abdominal exam: Present: soft, normal bowel sounds. Absent: distended, tenderness - Rectal Rectal exam: Present: deferred - Extremities Exam Extremities exam: Present: normal inspection, full ROM, normal capillary refill - Back Exam Back exam: Present: normal inspection, full ROM. Absent: CVA tenderness (R), CVA tenderness (L) - Neurological Exam Neurological exam: Present: alert, oriented X3, CN II-XII intact, normal gait, reflexes normal. Absent: motor sensory deficit - Expanded Neurological Exam Expanded Patient oriented to: Present: person, place, time Speech: Present: fluid speech Cranial nerves: EOM's Intact: Normal Motor strength exam: RUE: 5, LUE: 5, RLE: 5, LLE: 5 Best Eye Response (Warrior): (4) open spontaneously Best Motor Response (Warrior): (6) obeys commands Best Verbal Response (Warrior): (5) oriented Alvarez Total: 15 - Psychiatric Psychiatric exam: Present: normal affect, normal mood - Skin Skin exam: Present: warm, dry, intact, normal color. Absent: rash ED Course Vital Signs 05/13/22 05/13/22 15:54 20:08 Temperature 99.5 F Pulse Rate 75 77 Respiratory 18 12 Rate Blood Pressure 261/127 Blood Pressure 243/101 [Left] O2 Sat by Pulse 100 99 Oximetry ED Medical Decision Making - Radiology Data Radiology results: report reviewed, image reviewed CT BRAIN: 05/13/2022 INDICATION / CLINICAL INFORMATION: headache eye pain. COMPARISON: CT brain 11/11/2019 FINDINGS: BRAIN/INTRACRANIAL STRUCTURES: Unenhanced CT images of the brain demonstrate no evidence of acute abnormality. Ventricles and sulci are normal in size and shape. There is no evidence of hemorrhage or mass. There are no abnormal extra-axial fluid collection. EXTRACRANIAL STRUCTURES: Unremarkable. IMPRESSION: No acute abnormality. No change when compared to the prior exam. All CT scans at this location are performed using dose reduction to ALARA by means of automated exposure control. Signer Name: Nelson Foster MD Signed: 05/13/2022 9:03 PM Workstation Name: [id number] Transcribed By: JEAN Dictated By: Nelson Foster MD Electronically Authenticated By: Nelson Foster MD Signed Date/Time: 05/13/222102 DD/ 01 TD/TT: - Medical Decision Making Patient with small hyphema 5:00 right eye visual acuity 20/30 bilaterally, headache is resolved. Patient is PERRLA, EOMI, no periorbital edema, CT head: Normal no bleed no mass no soft tissue abnormality Plan follow-up with ophthalmology in 1 to 2 days. Take all occasions as prescribed especially blood pressure. Patient verbalized agreement and understanding of discharge plan. Patient will be DC'd home in stable condition at this time.. Critical care attestation.: If time is entered above; I have spent that time in minutes in the direct care of this critically ill patient, excluding procedure time. ED Disposition Clinical Impression: Hyphema of right eye Disposition: 01 HOME / SELF CARE / HOMELESS Is pt being admited?: No Does the pt Need Aspirin: No Condition: Stable Instructions: Hyphema Additional Instructions: Take medications as prescribed, take blood pressure medications as prescribed, follow-up with your eye doctor in 1 to 2 days. Turn to emergency department should symptoms worsen. Prescriptions: amLODIPine 5 mg PO DAILY #30 tab Polymyxin B Sulf/Trimethoprim [Polytrim Eye Drops] 2 drop OP Q3H #10 ml Referrals: CHRIS DIAZ MD [Staff Physician] - 24 Hours ARON MATIAS MD [Primary Care Provider] - 2-3 Days Forms: Work/School Release Form(ED) Time of Disposition: 21:10
--- NOTE | 2022-05-13 21:07 | Cat Scan Report ---
CT BRAIN: 05/13/2022 INDICATION / CLINICAL INFORMATION: headache eye pain. COMPARISON: CT brain 11/11/2019 FINDINGS: BRAIN/INTRACRANIAL STRUCTURES: Unenhanced CT images of the brain demonstrate no evidence of acute abn ormality. Ventricles and sulci are normal in size and shape. There is no evidence of hemorrhage or mass. There are no abnormal extra-axial fluid collection. EXTRACRANIAL STRUCTURES: Unremarkable. IMPRESSION: No acute abnormality. No change when compared to the prior exam. All CT scans at this location are performed using dose reduction to ALARA by means of automated expos ure control. Signer Name: Nelson Foster MD Signed: 05/13/2022 9:03 PM Workstation Name: [id number]
[2022-05-13 22:20] VITALS: BP 214/92
== END 2022-05-13 21:44 | disposition home or self-care (01) ==
LOC: ED 14:22
DX: H21.01 Hyphema, right eye (principal); Z88.0 Allergy status to penicillin; I10 Essential (primary) hypertension; E11.9 Type 2 diabetes mellitus without complications
CPT/HCPCS: 70450; 99283

== ENCOUNTER 2022-05-17 14:06 | Inpatient (IN) | payer MEDICAID ==
[2022-05-18] MEDS ORDERED: cloNIDine 0.2 MG TAB PO ONE (04:50)
--- NOTE | 2022-05-18 05:16 | XRay Report ---
CHEST 2 view INDICATION / CLINICAL INFORMATION: chest pain. COMPARISON: 01/01/2022 FINDINGS: SUPPORT DEVICES: None. HEART / MEDIASTINUM: No significant abnormality. LUNGS / PLEURA: Prominent bilateral interstitial pulmonary opacities are present. Small bilateral ple ural effusions are present. The appearance is most suggestive for prominent interstitial pulmonary ed khoi. No pneumothorax. ADDITIONAL FINDINGS: No significant additional findings. IMPRESSION: 1. Prominent interstitial pulmonary edema with small bilateral pleural effusions. Signer Name: Marti Nichols MD Signed: 05/18/2022 5:11 AM Workstation Name: [id number]
[2022-05-18 05:36] LABS: Hematocrit 25.7 % (30.3-42.9); Hemoglobin 8.3 gm/dl (10.1-14.3); Mean Corpuscular HGB Conc 32 % (30-34); Mean Corpuscular Volume 77 fl (79-97); Platelet Count 317 K/mm3 (140-440); Red Blood Count 3.33 M/mm3 (3.65-5.03); Red Cell Distribution Width 14.3 % (13.2-15.2)
[2022-05-18 05:42] LABS: Alanine Aminotransferase 14 units/L (7-56); Albumin 3.1 g/dL (3.9-5); BUN/Creatinine Ratio 15; Blood Urea Nitrogen 43 mg/dL (7-17); Calcium 8.8 mg/dL (8.4-10.2); Hemolysis Index 0
--- NOTE | 2022-05-18 08:13 | XRay Report ---
CHEST 1 VIEW 05/18/2022 7:04 AM INDICATION / CLINICAL INFORMATION: sob. COMPARISON: Earlier today at 0506 hours FINDINGS: SUPPORT DEVICES: None. HEART / MEDIASTINUM: Stable borderline heart size LUNGS / PLEURA: Bilateral congestive changes appear slightly decreased since the previous exam. Trace bilateral pleural effusions appear stable. No focal consolidation or pneumothorax. ADDITIONAL FINDINGS: No significant additional findings. IMPRESSION: 1. Mild improvement as described. Signer Name: Barrett Cyr Jr, MD Signed: 05/18/2022 8:09 AM Workstation Name: [id number]
--- NOTE | 2022-05-18 09:31 | Electrocardiograph Report ---
[facility] Test Date: 2022-05-17 Test Time: 14:50:19 Pat Name: LISA ROY Department: Room: Gender: F [employer] Mechanic: [id number] : 1970 Requested By: EVA GONCALVES Order Number: [id number] Reading MD: Rui De La Cruz Measurements Intervals [place] Rate: 76 P: 64 OK: 168 QRS: 39 QRSD: 83 T: 117 QT: 440 QTc: 494 Interpretive Statements Sinus rhythm Abnormal T, consider ischemia, lateral leads Compared to ECG 01/02/2022 10:43:26 No significant changes Electronically Signed On 05-18-2022 9:31:03 EDT by Rui De La Cruz
--- NOTE | 2022-05-18 11:36 | History and Physical Report ---
<HERMES ROBISON - Last Filed: 05/18/22 12:23> Medications and Allergies Allergies Allergy/AdvReac Type Severity Reaction Status Date / Time Penicillins Allergy Itching Verified 05/17/22 14:48 Home Medications Medication Instructions Recorded Confirmed Last Taken Type Ketorolac Tromethamine [Acular] 1 - 2 drops OS Q6H PRN #1 bottle 09/11/18 Unknown Rx Tobramycin [Tobrex] 1 drop OP Q4H #1 bottle 09/11/18 Unknown Rx Enalapril Maleate [Vasotec] 20 mg PO DAILY #30 tablet 11/02/18 Unknown Rx Phenazopyridine [Pyridium] 200 mg PO TID #6 tab 11/02/18 Unknown Rx Sulfamethoxazole/Trimethoprim 1 each PO BID #6 tablet 11/02/18 Unknown Rx [Bactrim DS TAB] Clindamycin [Clindamycin CAP] 300 mg PO Q8H #10 cap 01/24/19 Unknown Rx Ibuprofen [Motrin 800 MG tab] 800 mg PO Q8HR PRN #30 tablet 01/24/19 Unknown Rx Doxycycline Hyclate [Doxycycline 100 mg PO Q12HR #20 tab 05/05/19 Unknown Rx Hyclate TAB] Ibuprofen [Motrin] 600 mg PO Q8H PRN #20 tablet 05/05/19 Unknown Rx Prednisone [predniSONE 10 mg 10 mg PO .TAPER #21 tab.ds.pk 05/05/19 Unknown Rx (6-Day Pack, 21 Tabs)] Benzonatate [Tessalon Perles] 100 mg PO Q8HR PRN #20 capsule 05/26/19 Unknown Rx Fluticasone [Flonase] 1 spray NS QDAY #1 bottle 05/26/19 Unknown Rx Loratadine (Nf) [Claritin] 10 mg PO DAILY #20 tablet 05/26/19 Unknown Rx Naproxen [Naprosyn] 500 mg PO BID #20 tablet 05/26/19 Unknown Rx Ondansetron [Zofran Odt] 4 mg PO Q8HR PRN #20 tab.rapdis 05/26/19 Unknown Rx Acetaminophen [Non-Aspirin Extra 500 mg PO Q6HR PRN #30 tablet 05/31/20 Unknown Rx Strength] Yazmin Root [Yazmin] 250 mg PO QID PRN #30 capsule 05/31/20 Unknown Rx Ibuprofen [Motrin] 600 mg PO Q8H PRN #30 tablet 05/31/20 Unknown Rx Metoclopramide [Reglan] 10 mg PO QID PRN #30 tablet 05/31/20 Unknown Rx Nitrofurantoin Clay/M-Cryst 100 mg PO Q12HR #14 capsule 05/31/20 Unknown Rx [Macrobid CAP] Nitrofurantoin Clay/M-Cryst 100 mg PO Q12HR 10 Days #20 capsule 08/16/20 Unknown Rx [Macrobid CAP] Phenazopyridine [Pyridium] 100 mg PO TID #9 tab 08/16/20 Unknown Rx Acetaminophen/Codeine [Tylenol 1 tab PO Q6H PRN #14 tab 02/24/21 Unknown Rx /Codeine # 3 tab] Azithromycin [Zithromax Z-HENRI] 0 mg PO DAILY #6 tab 04/26/21 Unknown Rx predniSONE [Deltasone] 40 mg PO QDAY 5 Days #10 tab 04/26/21 Unknown Rx HYDROcodone/APAP 5-325 [[place] 1 - 2 each PO Q6HR PRN #14 tablet 07/04/21 Unknown Rx 5/325] Ibuprofen [Motrin 800 MG tab] 800 mg PO Q8HR PRN #20 tablet 07/04/21 Unknown Rx Sulfamethoxazole/Trimethoprim 1 each PO BID #20 tablet 07/04/21 Unknown Rx [Bactrim DS TAB] levoFLOXacin [Levaquin] 750 mg PO QDAY #10 tablet 07/04/21 Unknown Rx Azithromycin [Zithromax Z-HENRI] 250 mg PO DAILY #6 tablet 08/29/21 Unknown Rx Benzonatate [Tessalon Perles] 100 mg PO Q8HR #30 capsule 08/29/21 Unknown Rx Cetirizine HCl [Zyrtec 10mg tab] 10 mg PO DAILY #30 tablet 08/29/21 Unknown Rx Ibuprofen [Motrin 600 MG tab] 600 mg PO Q8H PRN #30 tablet 08/29/21 Unknown Rx levoFLOXacin [Levaquin TAB] 500 mg PO DAILY #7 09/24/21 Unknown Rx AtorvaSTATin [Lipitor] 20 mg PO DAILY 11/13/21 01/02/22 1 Day Ago History ~11/12/21 Insulin NPH Hum/Reg Insulin Hm 25 unit SQ BID 11/13/21 01/02/22 11/12/21 History [Humulin 70-30 Vial] Multivitamin 1 each PO QDAY 11/13/21 01/02/22 11/12/21 History Valsartan [Diovan] 160 mg PO QDAY 11/13/21 01/02/22 11/12/21 History tiZANidine [Zanaflex 4mg TAB] 4 mg PO BID PRN 11/13/21 01/02/22 11/12/21 History Cefdinir 300 mg PO BID #10 cap 11/18/21 01/02/22 Unknown Rx NIFEdipine XL [Procardia Xl] 30 mg PO QDAY #30 tablet 11/18/21 01/02/22 Unknown Rx Ondansetron (Nf) [Zofran TAB] 8 mg PO Q8HR PRN #12 tablet 11/18/21 01/02/22 Unknown Rx Pantoprazole [Protonix TAB] 40 mg PO QDAC #30 tablet 11/18/21 01/02/22 Unknown Rx metroNIDAZOLE [Flagyl TAB] 500 mg PO Q8HR #15 tablet 11/18/21 01/02/22 Unknown Rx hydrALAZINE [Apresoline TAB] 25 mg PO Q8HR #90 tablet 01/03/22 Unknown Rx Polymyxin B Sulf/Trimethoprim 2 drop OP Q3H #10 ml 05/13/22 Unknown Rx [Polytrim Eye Drops] amLODIPine 5 mg PO DAILY #30 tab 05/13/22 Unknown Rx Active Meds: Active Medications Acetaminophen (Acetaminophen 325 Mg Tab) 650 mg PO Q4H PRN PRN Reason: Pain MILD(1-3)/Fever >100.5/LUQUE Albuterol (Albuterol 2.5 Mg/3 Ml Nebu) 2.5 mg IH Q4HRT PRN PRN Reason: Shortness Of Breath Furosemide (Furosemide 20 Mg/2 Ml Inj) 20 mg IV BID@0600,1800 NATY Lisinopril (Lisinopril 10 Mg Tab) 10 mg PO QDAY NATY Metoprolol Tartrate (Metoprolol Tartrate 25 Mg Tab) 12.5 mg PO BID NATY Ondansetron HCl (Ondansetron 4 Mg/2 Ml Inj) 4 mg IV Q8H PRN PRN Reason: Nausea And Vomiting Oxycodone/Acetaminophen (Oxycodone /Acetaminophen 5-325mg Tab) 1 tab PO Q16H PRN PRN Reason: Pain, Moderate (4-6) Sodium Chloride (Sodium Chloride 0.9% 10 Ml Flush Syringe) 10 ml IV BID NATY Sodium Chloride (Sodium Chloride 0.9% 10 Ml Flush Syringe) 10 ml IV PRN PRN PRN Reason: LINE FLUSH Exam - Constitutional Vitals: Temp Pulse Resp BP Pulse Ox 98.9 F 67 14 212/90 93 05/18/22 02:55 05/18/22 05:58 05/18/22 05:58 05/18/22 05:58 05/18/22 05:58 HEART Score - HEART Score Troponin: Troponin T 0.015 ng/mL (0.00-0.029) 05/18/22 04:49 Results - Labs CBC & Chem 7: 05/18/22 04:49 05/18/22 04:49 Labs: Abnormal lab results 05/18/22 05/18/22 05/18/22 Range/Units 04:49 04:49 04:50 RBC 3.33 L (3.65-5.03) M/mm3 Hgb 8.3 L (10.1-14.3) gm/dl Hct 25.7 L (30.3-42.9) % MCV 77 L (79-97) fl MCH 25 L (28-32) pg BUN 43 H (7-17) mg/dL Creatinine 2.8 H (0.6-1.2) mg/dL Glucose 174 H (65-100) mg/dL NT-Pro-B Natriuret Pep 6190 H (0-900) pg/mL Total Protein 5.4 L (6.3-8.2) g/dL Albumin 3.1 L (3.9-5) g/dL <JOCELINE DENNY - Last Filed: 05/18/22 19:37> History of Present Illness Chief complaint: I cannot breathe History of present illness: 52 YO Female with Obesity Hypoventilation Syndrome, HTN, DM, Cardiorenal Syndrome, HLD, OA, GERD presents to ED for evaluation. Patient reports "I cannot breathe". Patient states that over the past 1 week she had experienced shortness of breath and chest discomfort with worsening symptoms over the past 2 days. Patient acknowledges decreased exercise tolerance, orthopnea, paroxysmal nocturnal dyspnea, decreased exercise tolerance, leg edema, and increased blood pressure. Patient also acknowledges 8 pound weight gain over the past 1 week. Patient transported to [facility] via private vehicle for further care and evaluation of the aforementioned symptoms. The patient was seen and evaluated in the emergency department. All lab and imaging studies reviewed. Patient found to have a blood pressure of 241/112 mmHg which is consistent with hypertensive emergency as well as clinical symptoms consistent with CHF, EDI with ATN. Patient admitted to telemetry and initiated on CHF protocol as well as IV antihypertensive therapy. Patient denies fever, chills, chest pain, palpitation, productive cough, skin rash, recent contact, known exposure to COVID-19. Prior admission on 01/01/2022 reviewed. All medication listed at time of admission been reconciled. Advanced care planning conducted in ED. Past History Past Medical History: arthritis, GERD, hypertension, hyperlipidemia, other (See HPI) Past Surgical History: Other (Spine surgery) Social history: (I think I think) Family history: hypertension Review of Systems Constitutional: weight gain, no weight loss, no fever, no chills Ears, nose, mouth and throat: no ear pain, no tinnitis, no decreased hearing, no nose pain, no nasal congestion Breasts: no change in shape, no mass Cardiovascular: orthopnea, shortness of breath, dyspnea on exertion, paroxysmal nocturnal dyspnea, high blood pressure, decreased exercise tolerance, no chest pain Respiratory: no cough, no cough with sputum, no excessive sputum Gastrointestinal: no abdominal pain, no nausea, no vomiting, no diarrhea Genitourinary Female: no pelvic pain, no flank pain, no dysuria, no urinary frequency, no urgency Rectal: no pain, no incontinence, no bleeding Musculoskeletal: no neck stiffness, no neck pain, no shooting arm pain, no arm numbness/tingling, no low back pain, no shooting leg pain Integumentary: no rash, no pruritis, no redness, no sores, no jaundice Neurological: no head injury, no transient paralysis, no weakness, no tingling, no seizures Psychiatric: no anxiety, no memory loss, no change in sleep habits, no sleep disturbances, no hypersomnia Endocrine: no cold intolerance, no polyphagia, no excessive thirst, no polydipsia, no nocturia Hematologic/Lymphatic: no easy bruising Allergic/Immunologic: no urticaria, no allergic rhinitis, no wheezing Exam - Constitutional Vitals: Temp Pulse Resp BP Pulse Ox 98.9 F 67 14 212/90 93 05/18/22 02:55 05/18/22 05:58 05/18/22 05:58 05/18/22 05:58 05/18/22 05:58 General appearance: Present: mild distress, obese - EENT Eyes: Present: PERRL ENT: hearing intact, clear oral mucosa - Neck Neck: Present: supple, normal ROM - Respiratory Respiratory effort: normal Respiratory: bilateral: CTA - Cardiovascular Heart Sounds: Present: S1 & S2. Absent: rub, click - Extremities Extremity abnormal: edema Peripheral Pulses: within normal limits - Abdominal General gastrointestinal: Present: soft, non-tender, non-distended, normal bowel sounds Female genitourinary: Present: normal - Integumentary Integumentary: Present: clear, erythema - Musculoskeletal Musculoskeletal: generalized weakness - Psychiatric Psychiatric: cooperative - Neurologic Neurologic: CNII-XII intact HEART Score - HEART Score Troponin: Troponin T 0.015 ng/mL (0.00-0.029) 05/18/22 04:49 Results - Labs CBC & Chem 7: 05/18/22 07:09 05/18/22 04:49 Labs: Abnormal lab results 05/18/22 05/18/22 05/18/22 Range/Units 04:49 04:49 04:50 RBC 3.33 L (3.65-5.03) M/mm3 Hgb 8.3 L (10.1-14.3) gm/dl Hct 25.7 L (30.3-42.9) % MCV 77 L (79-97) fl MCH 25 L (28-32) pg BUN 43 H (7-17) mg/dL Creatinine 2.8 H (0.6-1.2) mg/dL Glucose 174 H (65-100) mg/dL NT-Pro-B Natriuret Pep 6190 H (0-900) pg/mL Total Protein 5.4 L (6.3-8.2) g/dL Albumin 3.1 L (3.9-5) g/dL Assessment and Plan - Patient Problems (1) CHF (congestive heart failure) Current Visit: Yes Status: Acute Qualifiers: Heart failure type: systolic Heart failure chronicity: acute on chronic Qualified Code(s): I50.23 - Acute on chronic systolic (congestive) heart failure Plan to address problem: Strict I/O, monitoring E family weight, low reduction, blood pressure control, diuresis, cardiology team consulted. Echocardiogram ordered and pending at time of admission (2) Hypertensive emergency Current Visit: Yes Status: Acute Plan to address problem: IV antihypertensive therapy, monitor blood pressure every shift, continue medical management, telemetry monitoring. (3) Acute kidney injury (EDI) with acute tubular necrosis (ATN) Current Visit: Yes Status: Acute Plan to address problem: Renal ultrasound, urine electrolytes, BMP, repeat BMP in a.m. to monitor serum creatinine as well as GFR. (4) Cardiorenal syndrome Current Visit: Yes Status: Acute Plan to address problem: Renal ultrasound, urine electrolytes, BMP, repeat BMP in a.m. nephrology team consulted in ED. (5) Obesity hypoventilation syndrome Current Visit: Yes Status: Acute Plan to address problem: Balanced diet, increase physical activity discharge, outpatient pulmonary follow-up for sleep study (6) Hyperlipidemia Current Visit: Yes Status: Acute Qualifiers: Hyperlipidemia type: mixed hyperlipidemia Qualified Code(s): E78.2 - Mixed hyperlipidemia Plan to address problem: Statin therapy, lipid panel, supportive care. (7) GERD (gastroesophageal reflux disease) Current Visit: Yes Status: Acute Plan to address problem: PPI therapy, supportive care (8) Metabolic syndrome Current Visit: Yes Status: Acute Plan to address problem: Balanced diet, risk factor reduction, weight reduction, meal planning. Low- cholesterol diet (9) DVT prophylaxis Current Visit: Yes Status: Acute Plan to address problem: SCD to bilateral lower extremities while in bed (10) Advance care planning Current Visit: Yes Status: Acute Plan to address problem: Disease education data, care plan discussed, diagnoses discussed, prognosis discussed, patient is full code. Patient acknowledges understanding agreement with care plan, +30 minutes. (11) Preventative health care Current Visit: Yes Status: Acute Plan to address problem: Patient counseled regarding meal planning, increase physical activity at discharge, weight reduction, outpatient follow-up with primary care physician for all age and risk factor appropriate screening test. +30 minutes.
[2022-05-18] MEDS ORDERED: ALBUTEROL 2.5 MG/3 ML NEBU IH PRN (12:00)
--- NOTE | 2022-05-18 12:28 | Emergency Department Report ---
ED Shortness of Breath HPI - General Chief Complaint: Dyspnea/Respdistress Stated Complaint: HAVING TROUBLE BREATHING Time Seen by Provider: 05/18/22 06:49 Source: patient Mode of arrival: Ambulatory Limitations: No Limitations - History of Present Illness Initial Comments: 52-year-old female with no known past medical history complain about sh ortness of breath and body swelling and xx white male complaining of substernal chest pain rating to the left jaw for approximately 2 days. Patient denies any fever chills or cough MD Complaint: shortness of breath, chest pain -: Gradual, days(s) Severity: mild Quality: dull Consistency: intermittent Improves With: nothing Worsens With: nothing Treatments Prior to Arrival: none - Related Data Home Oxygen Therapy: No Home Medications Medication Instructions Recorded Confirmed Last Taken AtorvaSTATin [Lipitor] 20 mg PO DAILY 11/13/21 01/02/22 1 Day Ago ~11/12/21 Insulin NPH Hum/Reg Insulin Hm 25 unit SQ BID 11/13/21 01/02/22 11/12/21 [Humulin 70-30 Vial] Multivitamin 1 each PO QDAY 11/13/21 01/02/22 11/12/21 Valsartan [Diovan] 160 mg PO QDAY 11/13/21 01/02/22 11/12/21 tiZANidine [Zanaflex 4mg TAB] 4 mg PO BID PRN 11/13/21 01/02/22 11/12/21 Previous Rx's Medication Instructions Recorded Last Taken Type Ketorolac Tromethamine [Acular] 1 - 2 drops OS Q6H PRN #1 bottle 09/11/18 Unknow n Rx Tobramycin [Tobrex] 1 drop OP Q4H #1 bottle 09/11/18 Unknown Rx Enalapril Maleate [Vasotec] 20 mg PO DAILY #30 tablet 11/02/18 Unknown Rx Phenazopyridine [Pyridium] 200 mg PO TID #6 tab 11/02/18 Unknown Rx Sulfamethoxazole/Trimethoprim 1 each PO BID #6 tablet 11/02/18 Unknown Rx [Bactrim DS TAB] Clindamycin [Clindamycin CAP] 300 mg PO Q8H #10 cap 01/24/19 Unknown Rx Ibuprofen [Motrin 800 MG tab] 800 mg PO Q8HR PRN #30 tablet 01/24/19 Unknown Rx Doxycycline Hyclate [Doxycycline 100 mg PO Q12HR #20 tab 05/05/19 Unknown Rx Hyclate TAB] Ibuprofen [Motrin] 600 mg PO Q8H PRN #20 tablet 05/05/19 Unknown Rx Prednisone [predniSONE 10 mg 10 mg PO .TAPER #21 tab.ds.pk 05/05/19 Unknown Rx (6-Day Pack, 21 Tabs)] Benzonatate [Tessalon Perles] 100 mg PO Q8HR PRN #20 capsule 05/26/19 Unknown Rx Fluticasone [Flonase] 1 spray NS QDAY #1 bottle 05/26/19 Unknown Rx Loratadine (Nf) [Claritin] 10 mg PO DAILY #20 tablet 05/26/19 Unknown Rx Naproxen [Naprosyn] 500 mg PO BID #20 tablet 05/26/19 Unknown Rx Ondansetron [Zofran Odt] 4 mg PO Q8HR PRN #20 tab.rapdis 05/26/19 Unknown Rx Acetaminophen [Non-Aspirin Extra 500 mg PO Q6HR PRN #30 tablet 05/31/20 Unknown Rx Strength] Yazmin Root [Yazmin] 250 mg PO QID PRN #30 capsule 05/31/20 Unknown Rx Ibuprofen [Motrin] 600 mg PO Q8H PRN #30 tablet 05/31/20 Unknown Rx Metoclopramide [Reglan] 10 mg PO QID PRN #30 tablet 05/31/20 Unknown Rx Nitrofurantoin [place]/M-Cryst 100 mg PO Q12HR #14 capsule 05/31/20 Unknown Rx [Macrobid CAP] Nitrofurantoin [place]/M-Cryst 100 mg PO Q12HR 10 Days #20 capsule 08/16/20 Unknown Rx [Macrobid CAP] Phenazopyridine [Pyridium] 100 mg PO TID #9 tab 08/16/20 Unknown Rx Acetaminophen/Codeine [Tylenol 1 tab PO Q6H PRN #14 tab 02/24/21 Unknown Rx /Codeine # 3 tab] Azithromycin [Zithromax Z-HENRI] 0 mg PO DAILY #6 tab 04/26/21 Unknown Rx predniSONE [Deltasone] 40 mg PO QDAY 5 Days #10 tab 04/26/21 Unknown Rx HYDROcodone/APAP 5-325 [[place] 1 - 2 each PO Q6HR PRN #14 tablet 07/04/21 Unknown Rx 5/325] Ibuprofen [Motrin 800 MG tab] 800 mg PO Q8HR PRN #20 tablet 07/04/21 Unknown Rx Sulfamethoxazole/Trimethoprim 1 each PO BID #20 tablet 07/04/21 Unknown Rx [Bactrim DS TAB] levoFLOXacin [Levaquin] 750 mg PO QDAY #10 tablet 07/04/21 Unknown Rx Azithromycin [Zithromax Z-HENRI] 250 mg PO DAILY #6 tablet 08/29/21 Unknown Rx Benzonatate [Tessalon Perles] 100 mg PO Q8HR #30 capsule 08/29/21 Unknown Rx Cetirizine HCl [Zyrtec 10mg tab] 10 mg PO DAILY #30 tablet 08/29/21 Unknown Rx Ibuprofen [Motrin 600 MG tab] 600 mg PO Q8H PRN #30 tablet 08/29/21 Unknown Rx levoFLOXacin [Levaquin TAB] 500 mg PO DAILY #7 09/24/21 Unknown Rx Cefdinir 300 mg PO BID #10 cap 11/18/21 Unknown Rx NIFEdipine XL [Procardia Xl] 30 mg PO QDAY #30 tablet 11/18/21 Unknown Rx Ondansetron (Nf) [Zofran TAB] 8 mg PO Q8HR PRN #12 tablet 11/18/21 Unknown Rx Pantoprazole [Protonix TAB] 40 mg PO QDAC #30 tablet 11/18/21 Unknown Rx metroNIDAZOLE [Flagyl TAB] 500 mg PO Q8HR #15 tablet 11/18/21 Unknown Rx hydrALAZINE [Apresoline TAB] 25 mg PO Q8HR #90 tablet 01/03/22 Unknown Rx Polymyxin B Sulf/Trimethoprim 2 drop OP Q3H #10 ml 05/13/22 Unknown Rx [Polytrim Eye Drops] amLODIPine 5 mg PO DAILY #30 tab 05/13/22 Unknown Rx Allergies Allergy/AdvReac Type Severity Reaction Status Date / Time Penicillins Allergy Itching Verified 05/17/22 14:48 ED Review of Systems ROS: Stated complaint: HAVING TROUBLE BREATHING Other details as noted in HPI Constitutional: denies: chills, fever Eyes: as per HPI ENT: denies: ear pain, throat pain Respiratory: orthopnea, shortness of breath, SOB with exertion Cardiovascular: chest pain Endocrine: no symptoms reported Gastrointestinal: denies: abdominal pain, nausea, diarrhea Genitourinary: denies: urgency, dysuria, discharge Musculoskeletal: denies: back pain, joint swelling, arthralgia Skin: denies: rash, lesions Neurological: denies: headache, weakness, paresthesias Psychiatric: denies: anxiety, depression Hematological/Lymphatic: other (Edema) ED Past Medical Hx - Past Medical History Previous Medical History?: No Hx Hypertension: Yes (medicated) Hx Diabetes: Yes Hx Renal Disease: Yes Additional medical history: HERNIATED C-SPINE, dyslipidemia - Surgical History Past Surgical History?: No Additional Surgical History: Cervical spine surgery - Social History Smoking Status: Never Smoker Substance Use Type: None - Medications Home Medications: Home Medications Medication Instructions Recorded Confirmed Last Taken Type Ketorolac Tromethamine [Acular] 1 - 2 drops OS Q6H PRN #1 bottle 09/11/18 Unknown Rx Tobramycin [Tobrex] 1 drop OP Q4H #1 bottle 09/11/18 Unknown Rx Enalapril Maleate [Vasotec] 20 mg PO DAILY #30 tablet 11/02/18 Unknown Rx Phenazopyridine [Pyridium] 200 mg PO TID #6 tab 11/02/18 Unknown Rx Sulfamethoxazole/Trimethoprim 1 each PO BID #6 tablet 11/02/18 Unknown Rx [Bactrim DS TAB] Clindamycin [Clindamycin CAP] 300 mg PO Q8H #10 cap 01/24/19 Unknown Rx Ibuprofen [Motrin 800 MG tab] 800 mg PO Q8HR PRN #30 tablet 01/24/19 Unknown Rx Doxycycline Hyclate [Doxycycline 100 mg PO Q12HR #20 tab 05/05/19 Unknown Rx Hyclate TAB] Ibuprofen [Motrin] 600 mg PO Q8H PRN #20 tablet 05/05/19 Unknown Rx Prednisone [predniSONE 10 mg 10 mg PO .TAPER #21 tab.ds.pk 05/05/19 Unknown Rx (6-Day Pack, 21 Tabs)] Benzonatate [Tessalon Perles] 100 mg PO Q8HR PRN #20 capsule 05/26/19 Unknown Rx Fluticasone [Flonase] 1 spray NS QDAY #1 bottle 05/26/19 Unknown Rx Loratadine (Nf) [Claritin] 10 mg PO DAILY #20 tablet 05/26/19 Unknown Rx Naproxen [Naprosyn] 500 mg PO BID #20 tablet 05/26/19 Unknown Rx Ondansetron [Zofran Odt] 4 mg PO Q8HR PRN #20 tab.rapdis 05/26/19 Unknown Rx Acetaminophen [Non-Aspirin Extra 500 mg PO Q6HR PRN #30 tablet 05/31/20 Unknown Rx Strength] Yazmin Root [Yazmin] 250 mg PO QID PRN #30 capsule 05/31/20 Unknown Rx Ibuprofen [Motrin] 600 mg PO Q8H PRN #30 tablet 05/31/20 Unknown Rx Metoclopramide [Reglan] 10 mg PO QID PRN #30 tablet 05/31/20 Unknown Rx Nitrofurantoin [place]/M-Cryst 100 mg PO Q12HR #14 capsule 05/31/20 Unknown Rx [Macrobid CAP] Nitrofurantoin [place]/M-Cryst 100 mg PO Q12HR 10 Days #20 capsule 08/16/20 Unknown Rx [Macrobid CAP] Phenazopyridine [Pyridium] 100 mg PO TID #9 tab 08/16/20 Unknown Rx Acetaminophen/Codeine [Tylenol 1 tab PO Q6H PRN #14 tab 02/24/21 Unknown Rx /Codeine # 3 tab] Azithromycin [Zithromax Z-HENRI] 0 mg PO DAILY #6 tab 04/26/21 Unknown Rx predniSONE [Deltasone] 40 mg PO QDAY 5 Days #10 tab 04/26/21 Unknown Rx HYDROcodone/APAP 5-325 [[place] 1 - 2 each PO Q6HR PRN #14 tablet 07/04/21 Unknown Rx 5/325] Ibuprofen [Motrin 800 MG tab] 800 mg PO Q8HR PRN #20 tablet 07/04/21 Unknown Rx Sulfamethoxazole/Trimethoprim 1 each PO BID #20 tablet 07/04/21 Unknown Rx [Bactrim DS TAB] levoFLOXacin [Levaquin] 750 mg PO QDAY #10 tablet 07/04/21 Unknown Rx Azithromycin [Zithromax Z-HENRI] 250 mg PO DAILY #6 tablet 08/29/21 Unknown Rx Benzonatate [Tessalon Perles] 100 mg PO Q8HR #30 capsule 08/29/21 Unknown Rx Cetirizine HCl [Zyrtec 10mg tab] 10 mg PO DAILY #30 tablet 08/29/21 Unknown Rx Ibuprofen [Motrin 600 MG tab] 600 mg PO Q8H PRN #30 tablet 08/29/21 Unknown Rx levoFLOXacin [Levaquin TAB] 500 mg PO DAILY #7 09/24/21 Unknown Rx AtorvaSTATin [Lipitor] 20 mg PO DAILY 11/13/21 01/02/22 1 Day Ago History ~11/12/21 Insulin NPH Hum/Reg Insulin Hm 25 unit SQ BID 11/13/21 01/02/22 11/12/21 History [Humulin 70-30 Vial] Multivitamin 1 each PO QDAY 11/13/21 01/02/22 11/12/21 History Valsartan [Diovan] 160 mg PO QDAY 11/13/21 01/02/22 11/12/21 History tiZANidine [Zanaflex 4mg TAB] 4 mg PO BID PRN 11/13/21 01/02/22 11/12/21 History Cefdinir 300 mg PO BID #10 cap 11/18/21 01/02/22 Unknown Rx NIFEdipine XL [Procardia Xl] 30 mg PO QDAY #30 tablet 11/18/21 01/02/22 Unknown Rx Ondansetron (Nf) [Zofran TAB] 8 mg PO Q8HR PRN #12 tablet 11/18/21 01/02/22 Unknown Rx Pantoprazole [Protonix TAB] 40 mg PO QDAC #30 tablet 11/18/21 01/02/22 Unknown Rx metroNIDAZOLE [Flagyl TAB] 500 mg PO Q8HR #15 tablet 11/18/21 01/02/22 Unknown Rx hydrALAZINE [Apresoline TAB] 25 mg PO Q8HR #90 tablet 01/03/22 Unknown Rx Polymyxin B Sulf/Trimethoprim 2 drop OP Q3H #10 ml 05/13/22 Unknown Rx [Polytrim Eye Drops] amLODIPine 5 mg PO DAILY #30 tab 05/13/22 Unknown Rx ED Physical Exam - General Limitations: No Limitations General appearance: alert, in no apparent distress - Head Head exam: Present: atraumatic, normocephalic - Eye Eye exam: Present: normal appearance, PERRL, EOMI - ENT ENT exam: Present: normal exam, normal orophraynx, mucous membranes moist - Neck Neck exam: Present: normal inspection, lymphadenopathy - Respiratory Respiratory exam: Present: normal lung sounds bilaterally. Absent: respiratory distress - Cardiovascular Cardiovascular Exam: Present: regular rate, normal rhythm, normal heart sounds - GI/Abdominal GI/Abdominal exam: Present: soft. Absent: distended, tenderness - Extremities Exam Extremities exam: Present: full ROM, pedal edema (Trace pedal edema) - Back Exam Back exam: Present: normal inspection, full ROM - Neurological Exam Neurological exam: Present: alert, oriented X3, CN II-XII intact - Psychiatric Psychiatric exam: Present: normal affect - Skin Skin exam: Present: warm, dry ED Course Vital Signs 05/17/22 05/18/22 05/18/22 14:46 02:55 05:12 Temperature 98.5 F 98.9 F Pulse Rate 77 76 77 Respiratory 18 18 Rate Blood Pressure 237/100 Blood Pressure 226/74 241/112 [Left] O2 Sat by Pulse 99 98 Oximetry 05/18/22 05:58 Temperature Pulse Rate 67 Respiratory 14 Rate Blood Pressure Blood Pressure 212/90 [Left] O2 Sat by Pulse 93 Oximetry ED Medical Decision Making - Lab Data Result diagrams: 05/18/22 04:49 05/18/22 04:49 Critical care attestation.: If time is entered above; I have spent that time in minutes in the direct care of this critically ill patient, excluding procedure time. ED Disposition Clinical Impression: Acute renal failure (ARF) Disposition: ADMITTED INPATIENT Is pt being admited?: Yes Does the pt Need Aspirin: No Condition: Serious Referrals: ARON MATIAS MD [Primary Care Provider] - 3-5 Days
[2022-05-18 13:27] LABS: Basophils % (Auto) 0.7 % (0.0-1.8); Eosinophils # (Auto) 0.2 K/mm3 (0.0-0.4); Eosinophils % (Auto) 3.2 % (0.0-4.3); Hematocrit 24.6 % (30.3-42.9); Lymphocytes # (Auto) 1.2 K/mm3 (1.2-5.4); Lymphocytes % (Auto) 20.7 % (13.4-35.0); Mean Corpuscular HGB Conc 33 % (30-34); Mean Corpuscular Volume 77 fl (79-97); Monocytes # (Auto) 0.3 K/mm3 (0.0-0.8); Monocytes % (Auto) 5.7 % (0.0-7.3); Platelet Count 298 K/mm3 (140-440); Red Cell Distribution Width 14.3 % (13.2-15.2)
[2022-05-18] MEDS: LISINOPRIL 10 MG TAB PO SCH (13:48)
[2022-05-18] MEDS: METOPROLOL TARTRATE 25 MG TAB PO SCH (13:48)
[2022-05-18 13:54] LABS: Free T4 (Free Thyroxine) 1.08 ng/dL (0.76-1.46)
--- NOTE | 2022-05-18 14:14 | Ultrasound Report ---
ULTRASOUND RENAL INDICATION / CLINICAL INFORMATION: naseem. COMPARISON: None available. FINDINGS: RIGHT KIDNEY: Length = 11.9 cm. - Echogenicity: Normal. - Parenchymal Thickness: Normal. - Hydronephrosis: None. - Cyst / Mass: None. - Stones: None seen. LEFT KIDNEY: Length = 11.5 cm. - Echogenicity: Normal. - Parenchymal Thickness: Normal. - Hydronephrosis: None. - Cyst / Mass: None. - Stones: None seen. URINARY BLADDER: No significant abnormality. FREE FLUID: None. ADDITIONAL FINDINGS: None. IMPRESSION: 1. No significant abnormality. Signer Name: Shon Cosme MD Signed: 05/18/2022 2:10 PM Workstation Name: Chu Shu
[2022-05-18] MEDS: FUROSEMIDE 20 MG/2 ML INJ IV SCH (15:54)
[2022-05-18] MEDS ORDERED: FUROSEMIDE 20 MG/2 ML INJ IV SCH (18:00)
[2022-05-18] MEDS: ONDANSETRON 4 MG/2 ML INJ IV PRN (18:15)
[2022-05-18] MEDS: oxyCODONE /ACETAMINOPHEN 5-325MG TAB PO PRN (18:15)
[2022-05-18] MEDS ORDERED: METOPROLOL TARTRATE 25 MG TAB PO SCH (22:00)
[2022-05-19] MEDS: ACETAMINOPHEN 325 MG TAB PO PRN (00:31)
[2022-05-19] MEDS: METOPROLOL TARTRATE 25 MG TAB PO SCH ×3 (00:42→21:22)
[2022-05-19] MEDS: FUROSEMIDE 20 MG/2 ML INJ IV SCH ×3 (00:59→18:29)
[2022-05-19] MEDS: ONDANSETRON 4 MG/2 ML INJ IV PRN ×2 (06:19→15:32)
[2022-05-19 06:36] LABS: Calcium 8.4 mg/dL (8.4-10.2)
[2022-05-19] MEDS ORDERED: oxyCODONE /ACETAMINOPHEN 5-325MG TAB PO ONE (07:08)
[2022-05-19] MEDS: LISINOPRIL 10 MG TAB PO SCH ×2 (08:45→09:09)
--- NOTE | 2022-05-19 09:09 | Consultation ---
History of Present Illness - Reason for Consult Consult date: 05/19/22 acute renal failure Past History Past Medical History: arthritis, GERD, hypertension, hyperlipidemia, other (See HPI) Past Surgical History: Other (Spine surgery) Social history: (I think I think) Family history: hypertension Medications and Allergies Allergies Allergy/AdvReac Type Severity Reaction Status Date / Time Penicillins Allergy Itching Verified 05/17/22 14:48 Home Medications Medication Instructions Recorded Confirmed Last Taken Type Ketorolac Tromethamine [Acular] 1 - 2 drops OS Q6H PRN #1 bottle 09/11/18 Unknown Rx Tobramycin [Tobrex] 1 drop OP Q4H #1 bottle 09/11/18 Unknown Rx Enalapril Maleate [Vasotec] 20 mg PO DAILY #30 tablet 11/02/18 Unknown Rx Phenazopyridine [Pyridium] 200 mg PO TID #6 tab 11/02/18 Unknown Rx Sulfamethoxazole/Trimethoprim 1 each PO BID #6 tablet 11/02/18 Unknown Rx [Bactrim DS TAB] Clindamycin [Clindamycin CAP] 300 mg PO Q8H #10 cap 01/24/19 Unknown Rx Ibuprofen [Motrin 800 MG tab] 800 mg PO Q8HR PRN #30 tablet 01/24/19 Unknown Rx Doxycycline Hyclate [Doxycycline 100 mg PO Q12HR #20 tab 05/05/19 Unknown Rx Hyclate TAB] Ibuprofen [Motrin] 600 mg PO Q8H PRN #20 tablet 05/05/19 Unknown Rx Prednisone [predniSONE 10 mg 10 mg PO .TAPER #21 tab.ds.pk 05/05/19 Unknown Rx (6-Day Pack, 21 Tabs)] Benzonatate [Tessalon Perles] 100 mg PO Q8HR PRN #20 capsule 05/26/19 Unknown Rx Fluticasone [Flonase] 1 spray NS QDAY #1 bottle 05/26/19 Unknown Rx Loratadine (Nf) [Claritin] 10 mg PO DAILY #20 tablet 05/26/19 Unknown Rx Naproxen [Naprosyn] 500 mg PO BID #20 tablet 05/26/19 Unknown Rx Ondansetron [Zofran Odt] 4 mg PO Q8HR PRN #20 tab.rapdis 05/26/19 Unknown Rx Acetaminophen [Non-Aspirin Extra 500 mg PO Q6HR PRN #30 tablet 05/31/20 Unknown Rx Strength] Yazmin Root [Yazmin] 250 mg PO QID PRN #30 capsule 05/31/20 Unknown Rx Ibuprofen [Motrin] 600 mg PO Q8H PRN #30 tablet 05/31/20 Unknown Rx Metoclopramide [Reglan] 10 mg PO QID PRN #30 tablet 05/31/20 Unknown Rx Nitrofurantoin [place]/M-Cryst 100 mg PO Q12HR #14 capsule 05/31/20 Unknown Rx [Macrobid CAP] Nitrofurantoin [place]/M-Cryst 100 mg PO Q12HR 10 Days #20 capsule 08/16/20 Unknown Rx [Macrobid CAP] Phenazopyridine [Pyridium] 100 mg PO TID #9 tab 08/16/20 Unknown Rx Acetaminophen/Codeine [Tylenol 1 tab PO Q6H PRN #14 tab 02/24/21 Unknown Rx /Codeine # 3 tab] Azithromycin [Zithromax Z-HENRI] 0 mg PO DAILY #6 tab 04/26/21 Unknown Rx predniSONE [Deltasone] 40 mg PO QDAY 5 Days #10 tab 04/26/21 Unknown Rx HYDROcodone/APAP 5-325 [[place] 1 - 2 each PO Q6HR PRN #14 tablet 07/04/21 Unknown Rx 5/325] Ibuprofen [Motrin 800 MG tab] 800 mg PO Q8HR PRN #20 tablet 07/04/21 Unknown Rx Sulfamethoxazole/Trimethoprim 1 each PO BID #20 tablet 07/04/21 Unknown Rx [Bactrim DS TAB] levoFLOXacin [Levaquin] 750 mg PO QDAY #10 tablet 07/04/21 Unknown Rx Azithromycin [Zithromax Z-HENRI] 250 mg PO DAILY #6 tablet 08/29/21 Unknown Rx Benzonatate [Tessalon Perles] 100 mg PO Q8HR #30 capsule 08/29/21 Unknown Rx Cetirizine HCl [Zyrtec 10mg tab] 10 mg PO DAILY #30 tablet 08/29/21 Unknown Rx Ibuprofen [Motrin 600 MG tab] 600 mg PO Q8H PRN #30 tablet 08/29/21 Unknown Rx levoFLOXacin [Levaquin TAB] 500 mg PO DAILY #7 09/24/21 Unknown Rx AtorvaSTATin [Lipitor] 20 mg PO DAILY 11/13/21 01/02/22 1 Day Ago History ~11/12/21 Insulin NPH Hum/Reg Insulin Hm 25 unit SQ BID 11/13/21 01/02/22 11/12/21 History [Humulin 70-30 Vial] Multivitamin 1 each PO QDAY 11/13/21 01/02/22 11/12/21 History Valsartan [Diovan] 160 mg PO QDAY 11/13/21 01/02/22 11/12/21 History tiZANidine [Zanaflex 4mg TAB] 4 mg PO BID PRN 11/13/21 01/02/22 11/12/21 History Cefdinir 300 mg PO BID #10 cap 11/18/21 01/02/22 Unknown Rx NIFEdipine XL [Procardia Xl] 30 mg PO QDAY #30 tablet 11/18/21 01/02/22 Unknown Rx Ondansetron (Nf) [Zofran TAB] 8 mg PO Q8HR PRN #12 tablet 11/18/21 01/02/22 Unknown Rx Pantoprazole [Protonix TAB] 40 mg PO QDAC #30 tablet 11/18/21 01/02/22 Unknown Rx metroNIDAZOLE [Flagyl TAB] 500 mg PO Q8HR #15 tablet 11/18/21 01/02/22 Unknown Rx hydrALAZINE [Apresoline TAB] 25 mg PO Q8HR #90 tablet 01/03/22 Unknown Rx Polymyxin B Sulf/Trimethoprim 2 drop OP Q3H #10 ml 05/13/22 Unknown Rx [Polytrim Eye Drops] amLODIPine 5 mg PO DAILY #30 tab 05/13/22 Unknown Rx Active Meds: Active Medications Acetaminophen (Acetaminophen 325 Mg Tab) 650 mg PO Q4H PRN PRN Reason: Pain MILD(1-3)/Fever >100.5/LUQUE Last Admin: 05/19/22 00:31 Dose: 650 mg Albuterol (Albuterol 2.5 Mg/3 Ml Nebu) 2.5 mg IH Q4HRT PRN PRN Reason: Shortness Of Breath Furosemide (Furosemide 20 Mg/2 Ml Inj) 20 mg IV BID@0600,1800 [facility] Last Admin: 05/19/22 06:19 Dose: 20 mg Lisinopril (Lisinopril 10 Mg Tab) 10 mg PO QDAY [facility] Last Admin: 05/19/22 08:45 Dose: 10 mg Metoprolol Tartrate (Metoprolol Tartrate 25 Mg Tab) 12.5 mg PO BID [facility] Last Admin: 05/19/22 00:42 Dose: 12.5 mg Ondansetron HCl (Ondansetron 4 Mg/2 Ml Inj) 4 mg IV Q8H PRN PRN Reason: Nausea And Vomiting Last Admin: 05/19/22 06:19 Dose: 4 mg Oxycodone/Acetaminophen (Oxycodone /Acetaminophen 5-325mg Tab) 1 tab PO Q16H PRN PRN Reason: Pain, Moderate (4-6) Last Admin: 05/18/22 18:15 Dose: 1 tab Sodium Chloride (Sodium Chloride 0.9% 10 Ml Flush Syringe) 10 ml IV BID [facility] Last Admin: 05/19/22 00:31 Dose: 10 ml Sodium Chloride (Sodium Chloride 0.9% 10 Ml Flush Syringe) 10 ml IV PRN PRN PRN Reason: LINE FLUSH Exam - Vital Signs Vital signs: Vital Signs Temp Pulse Resp BP Pulse Ox 98.5 F 77 18 226/74 99 05/17/22 14:46 05/17/22 14:46 05/17/22 14:46 05/17/22 14:46 05/17/22 14:46 Results - Lab Results 05/18/22 07:09 05/19/22 05:38 Most recent lab results Calcium 8.4 mg/dL (8.4-10.2) 05/19/22 05:38 Magnesium 2.10 mg/dL (1.7-2.3) 05/18/22 12:09
--- NOTE | 2022-05-19 09:38 | Electrocardiograph Report ---
[facility] Test Date: 2022-05-19 Test Time: 07:22:52 Pat Name: LISA ROY Department: Room: A380 1 Gender: F [employer]boat [employer]: ANTONIO : 1970 Requested By: HERMES ROBISON Order Number: [id number] Reading MD: Rui De La Cruz Measurements Intervals [place] Rate: 66 P: 81 [place]: 181 QRS: 55 QRSD: 91 T: 110 QT: 486 QTc: 508 Interpretive Statements Sinus rhythm Abnormal T, consider ischemia, lateral leads Compared to ECG 05/17/2022 14:50:19 No significant changes Electronically Signed On 05-19-2022 9:37:54 EDT by Rui De La Cruz
[2022-05-19] MEDS ORDERED: LISINOPRIL 10 MG TAB PO SCH (10:00)
--- NOTE | 2022-05-19 10:21 | Consultation ---
History of Present Illness Consult date: 05/19/22 Consult reason: congestive heart failure, hypertension History of present illness: The patient is a 52-year-old woman with a history of severe uncontrolled hypertension, who presents to the hospital with shortness of breath. There was no chest pain or palpitations. There was no lower extremity edema. On presentation to the hospital, her systolic blood pressure was 226. Over the. Of her hospitalization, systolic blood pressures have remained severely elevated at this morning remains at 227 systolic. Initial chest x-ray showed mild interstitial edema with small right pleural effusion, patient was placed on intravenous diuretics, and this morning her shortness of breath has improved and a follow-up chest x-ray is clear of edema or effusion. EKG was sinus rhythm, low voltage QRS but no ST or T wave changes of ischemia. Cardiology consultation is requested for further assessment of uncontrolled hypertension and congestive heart failure. Patient has abnormal laboratory values of anemia, with a hematocrit of 24, and chronic kidney disease with a creatinine that is currently 2.8. Past History Past Medical History: arthritis, GERD, hypertension, hyperlipidemia, renal failure Past Surgical History: Other (Spine surgery) Social history: (I think I think) Family history: hypertension Medications and Allergies Allergies Allergy/AdvReac Type Severity Reaction Status Date / Time Penicillins Allergy Itching Verified 05/17/22 14:48 Home Medications Medication Instructions Recorded Confirmed Last Taken Type Ketorolac Tromethamine [Acular] 1 - 2 drops OS Q6H PRN #1 bottle 09/11/18 Unknown Rx Tobramycin [Tobrex] 1 drop OP Q4H #1 bottle 09/11/18 Unknown Rx Enalapril Maleate [Vasotec] 20 mg PO DAILY #30 tablet 11/02/18 Unknown Rx Phenazopyridine [Pyridium] 200 mg PO TID #6 tab 11/02/18 Unknown Rx Sulfamethoxazole/Trimethoprim 1 each PO BID #6 tablet 11/02/18 Unknown Rx [Bactrim DS TAB] Clindamycin [Clindamycin CAP] 300 mg PO Q8H #10 cap 01/24/19 Unknown Rx Ibuprofen [Motrin 800 MG tab] 800 mg PO Q8HR PRN #30 tablet 01/24/19 Unknown Rx Doxycycline Hyclate [Doxycycline 100 mg PO Q12HR #20 tab 05/05/19 Unknown Rx Hyclate TAB] Ibuprofen [Motrin] 600 mg PO Q8H PRN #20 tablet 05/05/19 Unknown Rx Prednisone [predniSONE 10 mg 10 mg PO .TAPER #21 tab.ds.pk 05/05/19 Unknown Rx (6-Day Pack, 21 Tabs)] Benzonatate [Tessalon Perles] 100 mg PO Q8HR PRN #20 capsule 05/26/19 Unknown Rx Fluticasone [Flonase] 1 spray NS QDAY #1 bottle 05/26/19 Unknown Rx Loratadine (Nf) [Claritin] 10 mg PO DAILY #20 tablet 05/26/19 Unknown Rx Naproxen [Naprosyn] 500 mg PO BID #20 tablet 05/26/19 Unknown Rx Ondansetron [Zofran Odt] 4 mg PO Q8HR PRN #20 tab.rapdis 05/26/19 Unknown Rx Acetaminophen [Non-Aspirin Extra 500 mg PO Q6HR PRN #30 tablet 05/31/20 Unknown Rx Strength] Yazmin Root [Yazmin] 250 mg PO QID PRN #30 capsule 05/31/20 Unknown Rx Ibuprofen [Motrin] 600 mg PO Q8H PRN #30 tablet 05/31/20 Unknown Rx Metoclopramide [Reglan] 10 mg PO QID PRN #30 tablet 05/31/20 Unknown Rx Nitrofurantoin [place]/M-Cryst 100 mg PO Q12HR #14 capsule 05/31/20 Unknown Rx [Macrobid CAP] Nitrofurantoin [place]/M-Cryst 100 mg PO Q12HR 10 Days #20 capsule 08/16/20 Unknown Rx [Macrobid CAP] Phenazopyridine [Pyridium] 100 mg PO TID #9 tab 08/16/20 Unknown Rx Acetaminophen/Codeine [Tylenol 1 tab PO Q6H PRN #14 tab 02/24/21 Unknown Rx /Codeine # 3 tab] Azithromycin [Zithromax Z-HENRI] 0 mg PO DAILY #6 tab 04/26/21 Unknown Rx predniSONE [Deltasone] 40 mg PO QDAY 5 Days #10 tab 04/26/21 Unknown Rx HYDROcodone/APAP 5-325 [[place] 1 - 2 each PO Q6HR PRN #14 tablet 07/04/21 Unknown Rx 5/325] Ibuprofen [Motrin 800 MG tab] 800 mg PO Q8HR PRN #20 tablet 07/04/21 Unknown Rx Sulfamethoxazole/Trimethoprim 1 each PO BID #20 tablet 07/04/21 Unknown Rx [Bactrim DS TAB] levoFLOXacin [Levaquin] 750 mg PO QDAY #10 tablet 07/04/21 Unknown Rx Azithromycin [Zithromax Z-HENRI] 250 mg PO DAILY #6 tablet 08/29/21 Unknown Rx Benzonatate [Tessalon Perles] 100 mg PO Q8HR #30 capsule 08/29/21 Unknown Rx Cetirizine HCl [Zyrtec 10mg tab] 10 mg PO DAILY #30 tablet 08/29/21 Unknown Rx Ibuprofen [Motrin 600 MG tab] 600 mg PO Q8H PRN #30 tablet 08/29/21 Unknown Rx levoFLOXacin [Levaquin TAB] 500 mg PO DAILY #7 09/24/21 Unknown Rx AtorvaSTATin [Lipitor] 20 mg PO DAILY 11/13/21 01/02/22 1 Day Ago History ~11/12/21 Insulin NPH Hum/Reg Insulin Hm 25 unit SQ BID 11/13/21 01/02/22 11/12/21 History [Humulin 70-30 Vial] Multivitamin 1 each PO QDAY 11/13/21 01/02/22 11/12/21 History Valsartan [Diovan] 160 mg PO QDAY 11/13/21 01/02/22 11/12/21 History tiZANidine [Zanaflex 4mg TAB] 4 mg PO BID PRN 11/13/21 01/02/22 11/12/21 History Cefdinir 300 mg PO BID #10 cap 11/18/21 01/02/22 Unknown Rx NIFEdipine XL [Procardia Xl] 30 mg PO QDAY #30 tablet 11/18/21 01/02/22 Unknown Rx Ondansetron (Nf) [Zofran TAB] 8 mg PO Q8HR PRN #12 tablet 11/18/21 01/02/22 Unknown Rx Pantoprazole [Protonix TAB] 40 mg PO QDAC #30 tablet 11/18/21 01/02/22 Unknown Rx metroNIDAZOLE [Flagyl TAB] 500 mg PO Q8HR #15 tablet 11/18/21 01/02/22 Unknown Rx hydrALAZINE [Apresoline TAB] 25 mg PO Q8HR #90 tablet 01/03/22 Unknown Rx Polymyxin B Sulf/Trimethoprim 2 drop OP Q3H #10 ml 05/13/22 Unknown Rx [Polytrim Eye Drops] amLODIPine 5 mg PO DAILY #30 tab 05/13/22 Unknown Rx Active Meds: Active Medications Acetaminophen (Acetaminophen 325 Mg Tab) 650 mg PO Q4H PRN PRN Reason: Pain MILD(1-3)/Fever >100.5/LUQUE Last Admin: 05/19/22 00:31 Dose: 650 mg Albuterol (Albuterol 2.5 Mg/3 Ml Nebu) 2.5 mg IH Q4HRT PRN PRN Reason: Shortness Of Breath Furosemide (Furosemide 20 Mg/2 Ml Inj) 20 mg IV BID@0600,1800 [facility] Last Admin: 05/19/22 06:19 Dose: 20 mg Metoprolol Tartrate (Metoprolol Tartrate 25 Mg Tab) 12.5 mg PO BID [facility] Last Admin: 05/19/22 09:09 Dose: 12.5 mg Ondansetron HCl (Ondansetron 4 Mg/2 Ml Inj) 4 mg IV Q8H PRN PRN Reason: Nausea And Vomiting Last Admin: 05/19/22 06:19 Dose: 4 mg Oxycodone/Acetaminophen (Oxycodone /Acetaminophen 5-325mg Tab) 1 tab PO Q16H PRN PRN Reason: Pain, Moderate (4-6) Last Admin: 05/18/22 18:15 Dose: 1 tab Sodium Chloride (Sodium Chloride 0.9% 10 Ml Flush Syringe) 10 ml IV BID [facility] Last Admin: 05/19/22 09:09 Dose: 10 ml Sodium Chloride (Sodium Chloride 0.9% 10 Ml Flush Syringe) 10 ml IV PRN PRN PRN Reason: LINE FLUSH Review of Systems Cardiovascular: shortness of breath, no chest pain, no orthopnea, no palpitations, no rapid/irregular heart beat, no edema, no syncope, no lightheadedness Physical Examination Vital Signs Temp Pulse Resp BP Pulse Ox 98.5 F 77 18 226/74 99 05/17/22 14:46 05/17/22 14:46 05/17/22 14:46 05/17/22 14:46 05/17/22 14:46 General appearance: no acute distress HEENT: Positive: PERRL Neck: Positive: neck supple Cardiac: Positive: Reg Rate and Rhythm Lungs: Positive: Decreased Breath Sounds Neuro: Positive: Grossly Intact Abdomen: Positive: Soft Female genitourinary: deferred Skin: Positive: Clear Extremities: Absent: edema Results 05/18/22 07:09 05/19/22 05:38 CBC 05/18/22 Range/Units 07:09 WBC 6.0 (4.5-11.0) K/mm3 RBC 3.20 L (3.65-5.03) M/mm3 Hgb 8.0 L (10.1-14.3) gm/dl Hct 24.6 L (30.3-42.9) % Plt Count 298 (140-440) K/mm3 Lymph # (Auto) 1.2 (1.2-5.4) K/mm3 [place] # (Auto) 0.3 (0.0-0.8) K/mm3 Eos # (Auto) 0.2 (0.0-0.4) K/mm3 Baso # (Auto) 0.0 (0.0-0.1) K/mm3 Comprehensive Metabolic Panel 05/19/22 Range/Units 05:38 Sodium 142 (137-145) mmol/L Potassium 4.5 (3.6-5.0) mmol/L Chloride 108.3 H (98-107) mmol/L Carbon Dioxide 26 (22-30) mmol/L BUN 43 H (7-17) mg/dL Creatinine 2.7 H (0.6-1.2) mg/dL Glucose 260 H (65-100) mg/dL Calcium 8.4 (8.4-10.2) mg/dL EKG interpretations - Telemetry EKG Rhythm: Sinus Rhythm (With low voltage QRS, no acute ST or T wave changes) Assessment and Plan - Patient Problems (1) Uncontrolled hypertension Current Visit: Yes Status: Acute Plan to address problem: Patient has a long history of severe uncontrolled hypertension, presents with systolic blood pressures at 226, remains uncontrolled currently on SALLY inhibitor therapy. I would recommend immediate stoppage of lisinopril, not effective and possibly deleterious to patient's chronic kidney disease. Instead I will use Procardia XL 60 mg twice daily and doxazosin 2 mg twice daily. (2) Congestive heart failure Current Visit: Yes Status: Acute Plan to address problem: Congestive heart failure fluid overload is likely diastolic heart failure in the setting of persistent, severe uncontrolled hypertension. We will aggressively control blood pressure and continue intravenous diuretics. I have advised patient on a strict low-salt diet.
--- NOTE | 2022-05-19 10:23 | Progress Note ---
Assessment and Plan Assessment and plan: Hospital Course: 05/19: Patient blood pressure not adequately controlled. Additional agents were added. Patient reports using natural remedies in the past. Will continue with diuresis. TTE result pending. Assessment and Plan: (1) CHF (congestive heart failure) Current Visit: Yes Status: Acute Qualifiers: Heart failure type: systolic Heart failure chronicity: acute on chronic Qualified Code(s): I50.23 - Acute on chronic systolic (congestive) heart failure Plan to address problem: Strict I/O, monitoring E family weight, low reduction, blood pressure control, diuresis, cardiology team consulted. Echocardiogram read pending. (2) Hypertensive emergency Current Visit: Yes Status: Acute Plan to address problem: IV antihypertensive therapy, monitor blood pressure every shift, continue medical management, telemetry monitoring. (3) Acute kidney injury (EDI) with acute tubular necrosis (ATN) Current Visit: Yes Status: Acute Plan to address problem: Renal ultrasound, urine electrolytes, BMP, repeat BMP in a.m. to monitor serum creatinine as well as GFR. (4) Cardiorenal syndrome Current Visit: Yes Status: Acute Plan to address problem: Renal ultrasound, urine electrolytes, BMP, repeat BMP in a.m. nephrology team consulted in ED. (5) Obesity hypoventilation syndrome Current Visit: Yes Status: Acute Plan to address problem: Balanced diet, increase physical activity discharge, outpatient pulmonary follow-up for sleep study (6) Hyperlipidemia Current Visit: Yes Status: Acute Qualifiers: Hyperlipidemia type: mixed hyperlipidemia Qualified Code(s): E78.2 - Mixed hyperlipidemia Plan to address problem: Statin therapy, lipid panel, supportive care. (7) GERD (gastroesophageal reflux disease) Current Visit: Yes Status: Acute Plan to address problem: PPI therapy, supportive care (8) Metabolic syndrome Current Visit: Yes Status: Acute Plan to address problem: Balanced diet, risk factor reduction, weight reduction, meal planning. Low- cholesterol diet (9) DVT prophylaxis Current Visit: Yes Status: Acute Plan to address problem: SCD to bilateral lower extremities while in bed (10) Advance care planning Current Visit: Yes Status: Acute Plan to address problem: Disease education data, care plan discussed, diagnoses discussed, prognosis discussed, patient is full code. Patient acknowledges understanding agreement with care plan, +30 minutes. History Interval history: No acute events overnight. Patient reports dyspnea with exertion. She is c urrently on room air. She was encouraged to use oxygen for comfort if needed. She currently denies chest pain and has noticed increased urination with IV Lasix. Hospitalist Physical - Physical exam Narrative exam: GENERAL: Well-developed well-nourished. In no acute distress. HEENT: Normocephalic. Atraumatic. NECK: Supple. CHEST/LUNGS: CTAB on room air HEART/CARDIOVASCULAR: RRR. No murmur, rubs or gallops appreciated. ABDOMEN: +BS. NT/ND. SKIN: No rashes noted. NEURO: No focal motor deficit. Follows all commands. MUSCULOSKELETAL: No joint effusion EXTREMITIES: No cyanosis, clubbing or edema. PSYCH: Cooperative. - Constitutional Vitals: Temp Pulse Resp BP Pulse Ox 98.1 F 62 20 227/97 100 05/19/22 06:17 05/19/22 08:37 05/18/22 21:05 05/19/22 08:37 05/19/22 08:37 General appearance: Present: no acute distress HEART Score - HEART Score Troponin: Troponin T 0.020 ng/mL (0.00-0.029) 05/18/22 12:09 Results - Labs CBC & Chem 7: 05/24/22 06:01 05/24/22 06:01 Labs: Laboratory Last Values WBC 6.0 K/mm3 (4.5-11.0) 05/18/22 07:09 RBC 3.20 M/mm3 (3.65-5.03) L 05/18/22 07:09 Hgb 8.0 gm/dl (10.1-14.3) L 05/18/22 07:09 Hct 24.6 % (30.3-42.9) L 05/18/22 07:09 MCV 77 fl (79-97) L 05/18/22 07:09 MCH 25 pg (28-32) L 05/18/22 07:09 MCHC 33 % (30-34) 05/18/22 07:09 RDW 14.3 % (13.2-15.2) 05/18/22 07:09 Plt Count 298 K/mm3 (140-440) 05/18/22 07:09 Lymph % (Auto) 20.7 % (13.4-35.0) 05/18/22 07:09 [place] % (Auto) 5.7 % (0.0-7.3) 05/18/22 07:09 Eos % (Auto) 3.2 % (0.0-4.3) 05/18/22 07:09 Baso % (Auto) 0.7 % (0.0-1.8) 05/18/22 07:09 Lymph # (Auto) 1.2 K/mm3 (1.2-5.4) 05/18/22 07:09 [place] # (Auto) 0.3 K/mm3 (0.0-0.8) 05/18/22 07:09 Eos # (Auto) 0.2 K/mm3 (0.0-0.4) 05/18/22 07:09 Baso # (Auto) 0.0 K/mm3 (0.0-0.1) 05/18/22 07:09 Seg Neutrophils % 69.7 % (40.0-70.0) 05/18/22 07:09 Seg Neutrophils # 4.2 K/mm3 (1.8-7.7) 05/18/22 07:09 Sodium 142 mmol/L (137-145) 05/19/22 05:38 Potassium 4.5 mmol/L (3.6-5.0) 05/19/22 05:38 Chloride 108.3 mmol/L (98-107) H 05/19/22 05:38 Carbon Dioxide 26 mmol/L (22-30) 05/19/22 05:38 Anion Gap 12 mmol/L 05/19/22 05:38 BUN 43 mg/dL (7-17) H 05/19/22 05:38 Creatinine 2.7 mg/dL (0.6-1.2) H 05/19/22 05:38 Estimated GFR 18 ml/min 05/19/22 05:38 BUN/Creatinine Ratio 16 % 05/19/22 05:38 Glucose 260 mg/dL (65-100) H 05/19/22 05:38 Calcium 8.4 mg/dL (8.4-10.2) 05/19/22 05:38 Magnesium 2.10 mg/dL (1.7-2.3) 05/18/22 12:09 Total Bilirubin < 0.20 mg/dL (0.1-1.2) 05/18/22 04:49 AST 17 units/L (5-40) 05/18/22 04:49 ALT 14 units/L (7-56) 05/18/22 04:49 Alkaline Phosphatase 117 units/L (35-129) 05/18/22 04:49 Troponin T 0.020 ng/mL (0.00-0.029) 05/18/22 12:09 NT-Pro-B Natriuret Pep 6190 pg/mL (0-900) H 05/18/22 04:50 Total Protein 5.4 g/dL (6.3-8.2) L 05/18/22 04:49 Albumin 3.1 g/dL (3.9-5) L 05/18/22 04:49 Albumin/Globulin Ratio 1.3 % 05/18/22 04:49 Lipase 45 units/L (13-60) 05/18/22 04:50 TSH 2.280 mlU/mL (0.270-4.200) 05/18/22 12:09 Free T4 1.08 ng/dL (0.76-1.46) 05/18/22 12:09 Cruz/IV: Voiding Method Toilet Active Medications - Current Medications Current Medications: Generic Name Dose Route Start Last Admin Trade Name Freq PRN Reason Stop Dose Admin Acetaminophen 650 mg 05/18/22 12:30 05/19/22 00:31 Acetaminophen 325 Mg Tab PO 650 mg Q4H PRN Administration Pain MILD(1-3)/Fever >100.5/LUQUE Albuterol 2.5 mg 05/18/22 12:00 Albuterol 2.5 Mg/3 Ml Nebu IH Q4HRT PRN Shortness Of Breath Doxazosin Mesylate 2 mg 05/19/22 11:00 Doxazosin 1 Mg Tab PO BID NATY Furosemide 20 mg 05/18/22 12:30 05/19/22 06:19 Furosemide 20 Mg/2 Ml Inj IV 20 mg BID@0600,1800 NATY Administration Metoprolol Tartrate 12.5 mg 05/18/22 13:00 05/19/22 09:09 Metoprolol Tartrate 25 Mg Tab PO 12.5 mg BID NTAY Administration Nifedipine 60 mg 05/19/22 11:00 Nifedipine Xl 60 Mg Tab PO Q12HR NATY Ondansetron HCl 4 mg 05/18/22 12:30 05/19/22 06:19 Ondansetron 4 Mg/2 Ml Inj IV 4 mg Q8H PRN Administration Nausea And Vomiting Oxycodone/Acetaminophen 1 tab 05/18/22 12:30 05/18/22 18:15 Oxycodone /Acetaminophen 5-325mg Tab PO 1 tab Q16H PRN Administration Pain, Moderate (4-6) Sodium Chloride 10 ml 05/18/22 22:00 05/19/22 09:09 Sodium Chloride 0.9% 10 Ml Flush Syringe IV 10 ml BID NATY Administration Sodium Chloride 10 ml 05/18/22 12:30 Sodium Chloride 0.9% 10 Ml Flush Syringe IV PRN PRN LINE FLUSH
[2022-05-19] MEDS: DOXAZOSIN 1 MG TAB PO SCH ×2 (11:34→21:21)
[2022-05-19] MEDS: NIFEdipine XL 60 MG TAB PO SCH ×2 (11:34→21:22)
--- NOTE | 2022-05-19 11:41 | Consultation ---
History of Present Illness - Reason for Consult Consult date: 05/19/22 acute renal failure, chronic renal failure - History of Present Illness The patient is a 52 YO female known to our service with history of Obesity, DM- 2, poorly controlled HTN, HLD, OA, GERD, Diabetic Nephropathya nd CKD-4 who presented to [facility] ED 05/18/22 with c/o sob over the past 1 week. Patient also reports decreased exercise tolerance, orthopnea, ELLIS, leg edema, weight gain and increased blood pressure. Patient denies any N, V, D, abd pain, hematuria or fever. In the ED BP was 237/100. CXR showed interstitial pulm edema and bilateral pleural effusion. Labs notable for Creat 2.7, BUN 43 and Hb 8. Patient admitted with hypertensive emergency, CHF and EDI with ATN. Nephrology consulted for further evaluation of EDI. Past History Past Medical History: arthritis, GERD, hypertension, hyperlipidemia, renal failure Past Surgical History: Other (Spine surgery) Social history: (I think I think) Family history: hypertension Medications and Allergies Allergies Allergy/AdvReac Type Severity Reaction Status Date / Time Penicillins Allergy Itching Verified 05/17/22 14:48 Home Medications Medication Instructions Recorded Confirmed Last Taken Type Metoclopramide [Reglan] 10 mg PO QID PRN #30 tablet 05/31/20 05/19/22 Unknown Rx AtorvaSTATin [Lipitor] 80 mg PO DAILY 11/13/21 05/19/22 1 Day Ago History ~11/12/21 Insulin NPH Hum/Reg Insulin Hm 20 unit SQ BID 11/13/21 05/19/22 11/12/21 History [Humulin 70-30 Vial] amLODIPine 5 mg PO DAILY #30 tab 05/13/22 05/19/22 Unknown Rx Dicyclomine [Bentyl] 10 mg PO QID 05/19/22 05/19/22 Unknown History Metoprolol [Lopressor TAB] 50 mg PO BID 05/19/22 05/19/22 Unknown History NIFEdipine [Nifedipine ER] 90 mg PO DAILY 05/19/22 05/19/22 Unknown History Polymyxin B Sulf/Trimethoprim 2 drop OP Q3H 05/19/22 05/19/22 Unknown History Terazosin HCl 5 mg PO QHS 05/19/22 05/19/22 Unknown History Triamter/Hctz 37.5-25 mg 37.5 mg PO DAILY 05/19/22 05/19/22 Unknown History tiZANidine [Zanaflex 4mg TAB] 4 mg PO DAILY 05/19/22 05/19/22 Unknown History Active Meds: Active Medications Acetaminophen (Acetaminophen 325 Mg Tab) 650 mg PO Q4H PRN PRN Reason: Pain MILD(1-3)/Fever >100.5/LUQUE Last Admin: 05/19/22 00:31 Dose: 650 mg Albuterol (Albuterol 2.5 Mg/3 Ml Nebu) 2.5 mg IH Q4HRT PRN PRN Reason: Shortness Of Breath Doxazosin Mesylate (Doxazosin 1 Mg Tab) 2 mg PO BID [facility] Last Admin: 05/19/22 11:34 Dose: 2 mg Furosemide (Furosemide 20 Mg/2 Ml Inj) 20 mg IV BID@0600,1800 [facility] Last Admin: 05/19/22 06:19 Dose: 20 mg Metoprolol Tartrate (Metoprolol Tartrate 25 Mg Tab) 12.5 mg PO BID [facility] Last Admin: 05/19/22 09:09 Dose: 12.5 mg Nifedipine (Nifedipine Xl 60 Mg Tab) 60 mg PO Q12HR [facility] Last Admin: 05/19/22 11:34 Dose: 60 mg Ondansetron HCl (Ondansetron 4 Mg/2 Ml Inj) 4 mg IV Q8H PRN PRN Reason: Nausea And Vomiting Last Admin: 05/19/22 06:19 Dose: 4 mg Oxycodone/Acetaminophen (Oxycodone /Acetaminophen 5-325mg Tab) 1 tab PO Q16H PRN PRN Reason: Pain, Moderate (4-6) Last Admin: 05/18/22 18:15 Dose: 1 tab Sodium Chloride (Sodium Chloride 0.9% 10 Ml Flush Syringe) 10 ml IV BID [facility] Last Admin: 05/19/22 09:09 Dose: 10 ml Sodium Chloride (Sodium Chloride 0.9% 10 Ml Flush Syringe) 10 ml IV PRN PRN PRN Reason: LINE FLUSH Review of Systems All systems: negative Exam - Vital Signs Vital signs: Vital Signs Temp Pulse Resp BP Pulse Ox 98.5 F 77 18 226/74 99 05/17/22 14:46 05/17/22 14:46 05/17/22 14:46 05/17/22 14:46 05/17/22 14:46 Results - Lab Results 05/18/22 07:09 05/19/22 05:38 Most recent lab results Calcium 8.4 mg/dL (8.4-10.2) 05/19/22 05:38 Magnesium 2.10 mg/dL (1.7-2.3) 05/18/22 12:09 Assessment and Plan 1. Acute kidney injury: EDI superimposed on CKD. Renal US negative for hydro/stone. Monitor renal function. Renal prognosis is guarded. Avoid nephrotoxic agents. Meds dosage based on GFR. 2. FEN: Volume overload, on IV Lasix. Replete lytes as needed. Monitor lytes and volume status. 3. CHF, POA: Echo with normal EF. Followed by Cards. 4. Hypertensive urgency: Volume control. Adjust meds as appropriate. 5. DM: Monitor. 6. Microcytic anemia, POA: Trend. Subjective: Patient was seen and examined at the bedside. Nurse at the bedside. Examination: General appearance: well-developed, obese, appears stated age, no distress HEENT: atraumatic, MESSI, no icterus Neck: trachea midline Respiratory: bilateral rales heard Heart: S1S2, regular, no murmur Abdomen: soft, obese, bowel sounds heard, NT Integumentary: no rash on the inspected area Neurologic: AO, able to move extremities Ext: 1+ Ext and dependent edema
[2022-05-19] MEDS ORDERED: tiZANidine TAB 4 MG TAB PO PRN (12:42)
[2022-05-19] MEDS: CETIRIZINE 10 MG TAB PO SCH (14:21)
[2022-05-19] MEDS: oxyCODONE /ACETAMINOPHEN 5-325MG TAB PO PRN (15:32)
[2022-05-19 16:11] LABS: Creatinine,Urine 74.1 mg/dL (0.1-20.0)
[2022-05-19] MEDS: FLUTICASONE PROPIONATE NASAL SPRAY 16 GM NS SCH (18:26)
[2022-05-19] MEDS ORDERED: FUROSEMIDE 40 MG/4 ML INJ IV ONE (22:20)
[2022-05-20] MEDS: FUROSEMIDE 20 MG/2 ML INJ IV SCH ×2 (05:37→18:44)
[2022-05-20] MEDS: oxyCODONE /ACETAMINOPHEN 5-325MG TAB PO PRN (05:58)
[2022-05-20] MEDS: ONDANSETRON 4 MG/2 ML INJ IV PRN ×2 (05:58→22:08)
[2022-05-20 06:20] LABS: Calcium 8.7 mg/dL (8.4-10.2)
--- NOTE | 2022-05-20 10:19 | Progress Note ---
Assessment and Plan 1. Acute kidney injury: EDI superimposed on CKD. Renal US negative for hydro/stone. Monitor renal function. Creatinine level increasing. Renal prognosis is guarded. Avoid nephrotoxic agents. Meds dosage based on GFR. 2. FEN: Volume overload, on IV Lasix. Replete lytes as needed. Monitor lytes and volume status. 3. HFpEF, POA: Echo with normal EF. Followed by Cards. 4. Hypertensive urgency: Volume control. Adjust meds as appropriate. 5. DM: Monitor. 6. Microcytic anemia, POA: Trend. Subjective: Patient was seen and examined at the bedside. No new complaint. Examination: General appearance: well-developed, obese, appears stated age, no distress HEENT: atraumatic, MESSI, no icterus Neck: trachea midline Respiratory: faint bibasal rales heard Heart: S1S2, regular, no murmur Abdomen: soft, obese, bowel sounds heard, NT Integumentary: no rash on the inspected area Neurologic: AO, able to move extremities Ext: trace Ext and dependent edema Subjective Date of service: 05/20/22 Objective - Vital Signs Vital signs: Vital Signs - 12hr 05/19/22 05/20/22 22:49 04:37 Temperature 98.5 F 98.5 F Pulse Rate 73 79 Respiratory 20 18 Rate Blood Pressure 185/72 131/61 O2 Sat by Pulse 95 93 Oximetry - Lab 05/18/22 07:09 05/20/22 05:37 Most recent lab results Calcium 8.7 mg/dL (8.4-10.2) 05/20/22 05:37 Magnesium 2.10 mg/dL (1.7-2.3) 05/18/22 12:09 Urine Creatinine 74.1 mg/dL (0.1-20.0) H 05/19/22 15:45 Urine Sodium 83 mmol/L 05/19/22 15:45 Urine Total Protein 97 mg/dL (5-11.8) H 05/19/22 15:45 Medications & Allergies - Medications Allergies/Adverse Reactions: Allergies Penicillins Allergy (Verified 05/17/22 14:48) Itching Home Medications: Home Medications Medication Instructions Recorded Confirmed Last Taken Type Metoclopramide [Reglan] 10 mg PO QID PRN #30 tablet 05/31/20 05/19/22 Unknown Rx AtorvaSTATin [Lipitor] 80 mg PO DAILY 11/13/21 05/19/22 1 Day Ago History ~11/12/21 Insulin NPH Hum/Reg Insulin Hm 20 unit SQ BID 11/13/21 05/19/22 11/12/21 History [Humulin 70-30 Vial] amLODIPine 5 mg PO DAILY #30 tab 05/13/22 05/19/22 Unknown Rx Dicyclomine [Bentyl] 10 mg PO QID 05/19/22 05/19/22 Unknown History Metoprolol [Lopressor TAB] 50 mg PO BID 05/19/22 05/19/22 Unknown History NIFEdipine [Nifedipine ER] 90 mg PO DAILY 05/19/22 05/19/22 Unknown History Polymyxin B Sulf/Trimethoprim 2 drop OP Q3H 05/19/22 05/19/22 Unknown History Terazosin HCl 5 mg PO QHS 05/19/22 05/19/22 Unknown History Triamter/Hctz 37.5-25 mg 37.5 mg PO DAILY 05/19/22 05/19/22 Unknown History tiZANidine [Zanaflex 4mg TAB] 4 mg PO DAILY 05/19/22 05/19/22 Unknown History Active Medications: Generic Name Dose Route Start Last Admin Trade Name Freq PRN Reason Stop Dose Admin Acetaminophen 650 mg 05/18/22 12:30 05/19/22 00:31 Acetaminophen 325 Mg Tab PO 650 mg Q4H PRN Administration Pain MILD(1-3)/Fever >100.5/LUQUE Albuterol 2.5 mg 05/18/22 12:00 Albuterol 2.5 Mg/3 Ml Nebu IH Q4HRT PRN Shortness Of Breath Cetirizine HCl 10 mg 05/19/22 14:00 05/19/22 14:21 Cetirizine 10 Mg Tab PO 10 mg DAILY NATY Administration Doxazosin Mesylate 2 mg 05/19/22 11:00 05/19/22 21:21 Doxazosin 1 Mg Tab PO 2 mg BID NATY Administration Fluticasone Propionate 50 mcg 05/19/22 14:00 05/19/22 18:26 Fluticasone Propionate Nasal [place] 16 Gm NS 50 mcg QDAY NATY Administration Furosemide 20 mg 05/18/22 12:30 05/20/22 05:37 Furosemide 20 Mg/2 Ml Inj IV 20 mg BID@0600,1800 NATY Administration Metoprolol Tartrate 12.5 mg 05/18/22 13:00 05/19/22 21:22 Metoprolol Tartrate 25 Mg Tab PO 12.5 mg BID NATY Administration Nifedipine 60 mg 05/19/22 11:00 05/19/22 21:22 Nifedipine Xl 60 Mg Tab PO 60 mg Q12HR NATY Administration Ondansetron HCl 4 mg 05/18/22 12:30 05/20/22 05:58 Ondansetron 4 Mg/2 Ml Inj IV 4 mg Q8H PRN Administration Nausea And Vomiting Oxycodone/Acetaminophen 1 tab 05/19/22 15:34 05/20/22 05:58 Oxycodone /Acetaminophen 5-325mg Tab PO 1 tab Q8H PRN Administration Pain, Moderate (4-6) Sodium Chloride 10 ml 05/18/22 22:00 05/19/22 21:26 Sodium Chloride 0.9% 10 Ml Flush Syringe IV 10 ml BID NATY Administration Sodium Chloride 10 ml 05/18/22 12:30 Sodium Chloride 0.9% 10 Ml Flush Syringe IV PRN PRN LINE FLUSH Tizanidine HCl 4 mg 05/19/22 12:42 05/19/22 21:30 Tizanidine Tab 4 Mg Tab PO 4 mg BID PRN Administration Muscle Spasm
[2022-05-20] MEDS: FLUTICASONE PROPIONATE NASAL SPRAY 16 GM NS SCH (11:35)
[2022-05-20] MEDS: CETIRIZINE 10 MG TAB PO SCH (11:35)
[2022-05-20] MEDS: NIFEdipine XL 60 MG TAB PO SCH ×2 (11:37→22:07)
[2022-05-20] MEDS: METOPROLOL TARTRATE 25 MG TAB PO SCH ×2 (11:37→22:05)
[2022-05-20] MEDS: DOXAZOSIN 1 MG TAB PO SCH ×2 (11:38→22:07)
--- NOTE | 2022-05-20 12:32 | Progress Note ---
Assessment and Plan Assessment and plan: History of present illness: 52 YO Female with Obesity Hypoventilation Syndrome, HTN, DM, Cardiorenal Syn drome, HLD, OA, GERD presents to ED for evaluation. Patient reports "I cannot breathe". Patient states that over the past 1 week she had experienced shortness of breath and chest discomfort with worsening symptoms over the past 2 days. Patient acknowledges decreased exercise tolerance, orthopnea, paroxysmal nocturnal dyspnea, decreased exercise tolerance, leg edema, and increased blood pressure. Patient also acknowledges 8 pound weight gain over the past 1 week. Patient transported to [facility] via private vehicle for further care and evaluation of the aforementioned symptoms. The patient was seen and evaluated in the emergency department. All lab and imaging studies reviewed. Patient found to have a blood pressure of 241/112 mmHg which is consistent with hypertensive emergency as well as clinical symptoms consistent with CHF, EDI with ATN. Patient admitted to telemetry and initiated on CHF protocol as well as IV antihypertensive therapy. Patient denies fever, chills, chest pain, p alpitation, productive cough, skin rash, recent contact, known exposure to COVID-19. Prior admission on 01/01/2022 reviewed. All medication listed at time of admission been reconciled. Advanced care planning conducted in ED. Hospital Course: 05/20: Blood pressure still not well controlled. Cardiology has added Procardia 60 mg twice daily and doxazosin 2 mg twice daily. I have added hydralazine 100 mg 3 times daily. Creatinine continues to worsen currently 2.9. May need to consider holding diuretics. will follow nephrology input. Assessment and Plan: (1) CHF (congestive heart failure) Current Visit: Yes Status: Acute Qualifiers: Heart failure type: systolic Heart failure chronicity: acute on chronic Qualified Code(s): I50.23 - Acute on chronic systolic (congestive) heart failure Plan to address problem: Strict I/O, monitoring E family weight, low reduction, blood pressure control, diuresis, cardiology team consulted. Echocardiogram ordered and pending at time of admission (2) Hypertensive emergency Current Visit: Yes Status: Acute Plan to address problem: IV antihypertensive therapy, monitor blood pressure every shift, continue medical management, telemetry monitoring. (3) Acute kidney injury (EDI) with acute tubular necrosis (ATN) Current Visit: Yes Status: Acute Plan to address problem: Renal ultrasound, urine electrolytes, BMP, repeat BMP in a.m. to monitor serum creatinine as well as GFR. (4) Cardiorenal syndrome Current Visit: Yes Status: Acute Plan to address problem: Renal ultrasound, urine electrolytes, BMP, repeat BMP in a.m. nephrology team consulted in ED. (5) Obesity hypoventilation syndrome Current Visit: Yes Status: Acute Plan to address problem: Balanced diet, increase physical activity discharge, outpatient pulmonary follow-up for sleep study (6) Hyperlipidemia Current Visit: Yes Status: Acute Qualifiers: Hyperlipidemia type: mixed hyperlipidemia Qualified Code(s): E78.2 - Mixed hyperlipidemia Plan to address problem: Statin therapy, lipid panel, supportive care. (7) GERD (gastroesophageal reflux disease) Current Visit: Yes Status: Acute Plan to address problem: PPI therapy, supportive care (8) Metabolic syndrome Current Visit: Yes Status: Acute Plan to address problem: Balanced diet, risk factor reduction, weight reduction, meal planning. Low- cholesterol diet (9) DVT prophylaxis Current Visit: Yes Status: Acute Plan to address problem: SCD to bilateral lower extremities while in bed (10) Advance care planning Current Visit: Yes Status: Acute Plan to address problem: Disease education data, care plan discussed, diagnoses discussed, prognosis discussed, patient is full code. Patient acknowledges understanding agreement with care plan, +30 minutes. (11) Preventative health care Current Visit: Yes Status: Acute Plan to address problem: Patient counseled regarding meal planning, increase physical activity at discharge, weight reduction, outpatient follow-up with primary care physician for all age and risk factor appropriate screening test. +30 minutes. History Interval history: No acute complaints this AM. Hospitalist Physical - Physical exam Narrative exam: Physical Exam: General appearance: well-developed, obese, appears stated age, no distress HEENT: atraumatic, MESSI, no icterus Neck: trachea midline Respiratory: bilateral rales heard Heart: S1S2, regular, no murmur Abdomen: soft, obese, bowel sounds heard, NT Integumentary: no rash on the inspected area Neurologic: AO, able to move extremities Ext: 1+ Ext and dependent edema - Constitutional Vitals: Temp Pulse Resp BP Pulse Ox 98.9 F 78 22 158/72 95 05/20/22 11:14 05/20/22 11:38 05/20/22 11:14 05/20/22 11:38 05/20/22 11:33 General appearance: Present: no acute distress HEART Score - HEART Score Troponin: Troponin T 0.020 ng/mL (0.00-0.029) 05/18/22 12:09 Results - Labs CBC & Chem 7: 05/18/22 07:09 05/20/22 05:37 Labs: Laboratory Last Values WBC 6.0 K/mm3 (4.5-11.0) 05/18/22 07:09 RBC 3.20 M/mm3 (3.65-5.03) L 05/18/22 07:09 Hgb 8.0 gm/dl (10.1-14.3) L 05/18/22 07:09 Hct 24.6 % (30.3-42.9) L 05/18/22 07:09 MCV 77 fl (79-97) L 05/18/22 07:09 MCH 25 pg (28-32) L 05/18/22 07:09 MCHC 33 % (30-34) 05/18/22 07:09 RDW 14.3 % (13.2-15.2) 05/18/22 07:09 Plt Count 298 K/mm3 (140-440) 05/18/22 07:09 Lymph % (Auto) 20.7 % (13.4-35.0) 05/18/22 07:09 [place] % (Auto) 5.7 % (0.0-7.3) 05/18/22 07:09 Eos % (Auto) 3.2 % (0.0-4.3) 05/18/22 07:09 Baso % (Auto) 0.7 % (0.0-1.8) 05/18/22 07:09 Lymph # (Auto) 1.2 K/mm3 (1.2-5.4) 05/18/22 07:09 [place] # (Auto) 0.3 K/mm3 (0.0-0.8) 05/18/22 07:09 Eos # (Auto) 0.2 K/mm3 (0.0-0.4) 05/18/22 07:09 Baso # (Auto) 0.0 K/mm3 (0.0-0.1) 05/18/22 07:09 Seg Neutrophils % 69.7 % (40.0-70.0) 05/18/22 07:09 Seg Neutrophils # 4.2 K/mm3 (1.8-7.7) 05/18/22 07:09 Sodium 140 mmol/L (137-145) 05/20/22 05:37 Potassium 4.3 mmol/L (3.6-5.0) 05/20/22 05:37 Chloride 105.4 mmol/L (98-107) 05/20/22 05:37 Carbon Dioxide 25 mmol/L (22-30) 05/20/22 05:37 Anion Gap 14 mmol/L 05/20/22 05:37 BUN 41 mg/dL (7-17) H 05/20/22 05:37 Creatinine 2.9 mg/dL (0.6-1.2) H 05/20/22 05:37 Estimated GFR 17 ml/min 05/20/22 05:37 BUN/Creatinine Ratio 14 % 05/20/22 05:37 Glucose 204 mg/dL (65-100) H 05/20/22 05:37 Calcium 8.7 mg/dL (8.4-10.2) 05/20/22 05:37 Magnesium 2.10 mg/dL (1.7-2.3) 05/18/22 12:09 Total Bilirubin < 0.20 mg/dL (0.1-1.2) 05/18/22 04:49 AST 17 units/L (5-40) 05/18/22 04:49 ALT 14 units/L (7-56) 05/18/22 04:49 Alkaline Phosphatase 117 units/L (35-129) 05/18/22 04:49 Troponin T 0.020 ng/mL (0.00-0.029) 05/18/22 12:09 NT-Pro-B Natriuret Pep 6190 pg/mL (0-900) H 05/18/22 04:50 Total Protein 5.4 g/dL (6.3-8.2) L 05/18/22 04:49 Albumin 3.1 g/dL (3.9-5) L 05/18/22 04:49 Albumin/Globulin Ratio 1.3 % 05/18/22 04:49 Lipase 45 units/L (13-60) 05/18/22 04:50 TSH 2.280 mlU/mL (0.270-4.200) 05/18/22 12:09 Free T4 1.08 ng/dL (0.76-1.46) 05/18/22 12:09 Urine Creatinine 74.1 mg/dL (0.1-20.0) H 05/19/22 15:45 Urine Sodium 83 mmol/L 05/19/22 15:45 Urine Total Protein 97 mg/dL (5-11.8) H 05/19/22 15:45 Cruz/IV: Voiding Method Toilet Active Medications - Current Medications Current Medications: Generic Name Dose Route Start Last Admin Trade Name Freq PRN Reason Stop Dose Admin Acetaminophen 650 mg 05/18/22 12:30 05/19/22 00:31 Acetaminophen 325 Mg Tab PO 650 mg Q4H PRN Administration Pain MILD(1-3)/Fever >100.5/LUQUE Albuterol 2.5 mg 05/18/22 12:00 Albuterol 2.5 Mg/3 Ml Nebu IH Q4HRT PRN Shortness Of Breath Cetirizine HCl 10 mg 05/19/22 14:00 05/20/22 11:35 Cetirizine 10 Mg Tab PO 10 mg DAILY NATY Administration Doxazosin Mesylate 2 mg 05/19/22 11:00 05/20/22 11:38 Doxazosin 1 Mg Tab PO 2 mg BID NATY Administration Fluticasone Propionate 50 mcg 05/19/22 14:00 05/20/22 11:35 Fluticasone Propionate Nasal [place] 16 Gm NS 50 mcg QDAY NATY Administration Furosemide 20 mg 05/18/22 12:30 05/20/22 05:37 Furosemide 20 Mg/2 Ml Inj IV 20 mg BID@0600,1800 NATY Administration Metoprolol Tartrate 12.5 mg 05/18/22 13:00 05/20/22 11:37 Metoprolol Tartrate 25 Mg Tab PO 12.5 mg BID NATY Administration Nifedipine 60 mg 05/19/22 11:00 05/20/22 11:37 Nifedipine Xl 60 Mg Tab PO 60 mg Q12HR NATY Administration Ondansetron HCl 4 mg 05/18/22 12:30 05/20/22 05:58 Ondansetron 4 Mg/2 Ml Inj IV 4 mg Q8H PRN Administration Nausea And Vomiting Oxycodone/Acetaminophen 1 tab 05/19/22 15:34 05/20/22 05:58 Oxycodone /Acetaminophen 5-325mg Tab PO 1 tab Q8H PRN Administration Pain, Moderate (4-6) Sodium Chloride 10 ml 05/18/22 22:00 05/20/22 11:38 Sodium Chloride 0.9% 10 Ml Flush Syringe IV 10 ml BID NATY Administration Sodium Chloride 10 ml 05/18/22 12:30 Sodium Chloride 0.9% 10 Ml Flush Syringe IV PRN PRN LINE FLUSH Tizanidine HCl 4 mg 05/19/22 12:42 05/19/22 21:30 Tizanidine Tab 4 Mg Tab PO 4 mg BID PRN Administration Muscle Spasm
--- NOTE | 2022-05-20 12:44 | Progress Note ---
Assessment and Plan - Patient Problems (1) Uncontrolled hypertension Current Visit: Yes Status: Acute Plan to address problem: Patient presented with severe uncontrolled hypertension with systolic blood pressures at 226. BP control is much better improved on Procardia XL 60 mg twice daily and doxazosin 2 mg twice daily. (2) Congestive heart failure Current Visit: Yes Status: Acute Plan to address problem: Congestive heart failure fluid overload is likely diastolic heart failure in the setting of persistent, severe uncontrolled hypertension. We will aggressively control blood pressure and continue intravenous diuretics. I have advised patient on a strict low-salt diet. Once blood pressure control is optimized, patient may be discharged on current blood pressure regimen as well as diuretics, she has a thallium stress test already scheduled with her primary side door worker Dr. Prado. Subjective Date of service: 05/20/22 Principal diagnosis: Diastolic heart failure Interval history: Patient is comfortable, no new cardiac complaints, no acute distress. It will be noted that her blood pressure is much better controlled on the combination of nifedipine XL and doxazosin, currently 130s systolic. Objective Vital Signs Temp Pulse Resp BP BP Pulse Ox 05/20/22 11:38 78 158/72 05/20/22 11:37 78 158/72 05/20/22 11:33 95 05/20/22 11:14 98.9 F 78 22 158/72 98 05/20/22 04:37 98.5 F 79 18 131/61 93 05/19/22 22:49 98.5 F 73 20 185/72 95 05/19/22 21:20 83 179/79 05/19/22 20:32 98 05/19/22 18:09 74 170/81 05/19/22 15:16 98 - Physical Examination HEENT: Positive: PERRL Neck: Positive: neck supple Cardiac: Positive: Reg Rate and Rhythm Lungs: Positive: Decreased Breath Sounds Neuro: Positive: Grossly Intact Abdomen: Positive: Soft Skin: Positive: Clear Extremities: Absent: edema - Labs and Meds Comprehensive Metabolic Panel 05/20/22 Range/Units 05:37 Sodium 140 (137-145) mmol/L Potassium 4.3 (3.6-5.0) mmol/L Chloride 105.4 (98-107) mmol/L Carbon Dioxide 25 (22-30) mmol/L BUN 41 H (7-17) mg/dL Creatinine 2.9 H (0.6-1.2) mg/dL Glucose 204 H (65-100) mg/dL Calcium 8.7 (8.4-10.2) mg/dL
[2022-05-20] MEDS: hydrALAZINE 100 MG TAB PO SCH ×2 (18:45→22:14)
[2022-05-20] MEDS: ACETAMINOPHEN 325 MG TAB PO PRN (22:07)
[2022-05-21] MEDS: FUROSEMIDE 20 MG/2 ML INJ IV SCH (06:10)
--- NOTE | 2022-05-21 08:44 | Progress Note ---
Assessment and Plan 1. Acute kidney injury: EDI superimposed on CKD. Renal US negative for hydro/stone. Monitor renal function. Creatinine level increasing. Renal prognosis is guarded. Avoid nephrotoxic agents. Meds dosage based on GFR. 2. FEN: Volume overload, Lasix increased to 80 mg BID. Counseled to limit salt and fluid intake. Replete lytes as needed. Monitor lytes and volume status. 3. HFpEF, POA: Echo with normal EF. Followed by Cards. 4. Hypertensive urgency: Volume control. Adjust meds as appropriate. BP is better now. 5. DM: Monitor. 6. Microcytic anemia, POA: Trend. Subjective: Patient was seen and examined at the bedside. No new complaint. Examination: General appearance: well-developed, obese, appears stated age, no distress HEENT: atraumatic, MESSI, no icterus Neck: trachea midline Respiratory: faint bibasal rales heard Heart: S1S2, regular, no murmur Abdomen: soft, obese, bowel sounds heard, NT Integumentary: no rash on the inspected area Neurologic: AO, able to move extremities Ext: 1+ Ext and dependent edema Subjective Date of service: 05/21/22 Principal diagnosis: Diastolic heart failure Objective - Vital Signs Vital signs: Vital Signs - 12hr 05/20/22 05/20/22 05/20/22 21:56 22:00 22:05 Temperature Pulse Rate 88 89 Respiratory 20 Rate Blood Pressure 171/71 171/71 O2 Sat by Pulse 93 96 Oximetry 05/20/22 05/20/22 05/21/22 22:07 22:15 05:48 Temperature 98.6 F Pulse Rate 89 71 Respiratory 20 Rate Blood Pressure 171/71 130/50 O2 Sat by Pulse 87 Oximetry 05/21/22 05/21/22 06:00 06:36 Temperature 98.5 F Pulse Rate Respiratory Rate Blood Pressure O2 Sat by Pulse 99 Oximetry - Lab 05/22/22 05:14 05/22/22 05:14 Most recent lab results Calcium 8.7 mg/dL (8.4-10.2) 05/20/22 05:37 Magnesium 2.10 mg/dL (1.7-2.3) 05/18/22 12:09 Urine Creatinine 74.1 mg/dL (0.1-20.0) H 05/19/22 15:45 Urine Sodium 83 mmol/L 05/19/22 15:45 Urine Total Protein 97 mg/dL (5-11.8) H 05/19/22 15:45 Medications & Allergies - Medications Allergies/Adverse Reactions: Allergies Penicillins Allergy (Verified 05/17/22 14:48) Itching Home Medications: Home Medications Medication Instructions Recorded Confirmed Last Taken Type Metoclopramide [Reglan] 10 mg PO QID PRN #30 tablet 05/31/20 05/19/22 Unknown Rx AtorvaSTATin [Lipitor] 80 mg PO DAILY 11/13/21 05/19/22 1 Day Ago History ~11/12/21 Insulin NPH Hum/Reg Insulin Hm 20 unit SQ BID 11/13/21 05/19/22 11/12/21 History [Humulin 70-30 Vial] amLODIPine 5 mg PO DAILY #30 tab 05/13/22 05/19/22 Unknown Rx Dicyclomine [Bentyl] 10 mg PO QID 05/19/22 05/19/22 Unknown History Metoprolol [Lopressor TAB] 50 mg PO BID 05/19/22 05/19/22 Unknown History NIFEdipine [Nifedipine ER] 90 mg PO DAILY 05/19/22 05/19/22 Unknown History Polymyxin B Sulf/Trimethoprim 2 drop OP Q3H 05/19/22 05/19/22 Unknown History Terazosin HCl 5 mg PO QHS 05/19/22 05/19/22 Unknown History Triamter/Hctz 37.5-25 mg 37.5 mg PO DAILY 05/19/22 05/19/22 Unknown History tiZANidine [Zanaflex 4mg TAB] 4 mg PO DAILY 05/19/22 05/19/22 Unknown History Active Medications: Generic Name Dose Route Start Last Admin Trade Name Freq PRN Reason Stop Dose Admin Acetaminophen 650 mg 05/18/22 12:30 05/20/22 22:07 Acetaminophen 325 Mg Tab PO 650 mg Q4H PRN Administration Pain MILD(1-3)/Fever >100.5/LUQUE Albuterol 2.5 mg 05/18/22 12:00 Albuterol 2.5 Mg/3 Ml Nebu IH Q4HRT PRN Shortness Of Breath Cetirizine HCl 10 mg 05/19/22 14:00 05/20/22 11:35 Cetirizine 10 Mg Tab PO 10 mg DAILY NATY Administration Doxazosin Mesylate 2 mg 05/19/22 11:00 05/20/22 22:07 Doxazosin 1 Mg Tab PO 2 mg BID NATY Administration Fluticasone Propionate 50 mcg 05/19/22 14:00 05/20/22 11:35 Fluticasone Propionate Nasal [place] 16 Gm NS 50 mcg QDAY NATY Administration Furosemide 40 mg 05/21/22 18:00 Furosemide 40 Mg Tab PO 0600,1800 [facility] Hydralazine HCl 100 mg 05/20/22 20:00 05/20/22 22:14 Hydralazine 100 Mg Tab PO Not Given TID [facility] Metoprolol Tartrate 12.5 mg 05/18/22 13:00 05/20/22 22:05 Metoprolol Tartrate 25 Mg Tab PO 12.5 mg BID NATY Administration Nifedipine 60 mg 05/19/22 11:00 05/20/22 22:07 Nifedipine Xl 60 Mg Tab PO 60 mg Q12HR NATY Administration Ondansetron HCl 4 mg 05/18/22 12:30 05/20/22 22:08 Ondansetron 4 Mg/2 Ml Inj IV 4 mg Q8H PRN Administration Nausea And Vomiting Oxycodone/Acetaminophen 1 tab 05/19/22 15:34 05/20/22 05:58 Oxycodone /Acetaminophen 5-325mg Tab PO 1 tab Q8H PRN Administration Pain, Moderate (4-6) Sodium Chloride 10 ml 05/18/22 22:00 05/20/22 22:08 Sodium Chloride 0.9% 10 Ml Flush Syringe IV 10 ml BID NATY Administration Sodium Chloride 10 ml 05/18/22 12:30 Sodium Chloride 0.9% 10 Ml Flush Syringe IV PRN PRN LINE FLUSH Tizanidine HCl 4 mg 05/19/22 12:42 05/19/22 21:30 Tizanidine Tab 4 Mg Tab PO 4 mg BID PRN Administration Muscle Spasm
[2022-05-21] MEDS: DOXAZOSIN 1 MG TAB PO SCH ×2 (11:03→22:13)
[2022-05-21] MEDS: NIFEdipine XL 60 MG TAB PO SCH ×2 (11:03→22:13)
[2022-05-21] MEDS: CETIRIZINE 10 MG TAB PO SCH (11:03)
[2022-05-21] MEDS: METOPROLOL TARTRATE 25 MG TAB PO SCH ×2 (11:03→22:13)
[2022-05-21] MEDS: oxyCODONE /ACETAMINOPHEN 5-325MG TAB PO PRN ×2 (11:04→19:08)
[2022-05-21] MEDS: FLUTICASONE PROPIONATE NASAL SPRAY 16 GM NS SCH (11:04)
[2022-05-21] MEDS: ONDANSETRON 4 MG/2 ML INJ IV PRN ×2 (11:04→20:58)
[2022-05-21] MEDS: hydrALAZINE 100 MG TAB PO SCH ×3 (11:06→20:55)
--- NOTE | 2022-05-21 12:05 | Progress Note ---
Assessment and Plan Assessment and plan: History of present illness: 52 YO Female with Obesity Hypoventilation Syndrome, HTN, DM, Cardiorenal Syn drome, HLD, OA, GERD presents to ED for evaluation. Patient reports "I cannot breathe". Patient states that over the past 1 week she had experienced shortness of breath and chest discomfort with worsening symptoms over the past 2 days. Patient acknowledges decreased exercise tolerance, orthopnea, paroxysmal nocturnal dyspnea, decreased exercise tolerance, leg edema, and increased blood pressure. Patient also acknowledges 8 pound weight gain over the past 1 week. Patient transported to [facility] via private vehicle for further care and evaluation of the aforementioned symptoms. The patient was seen and evaluated in the emergency department. All lab and imaging studies reviewed. Patient found to have a blood pressure of 241/112 mmHg which is consistent with hypertensive emergency as well as clinical symptoms consistent with CHF, EDI with ATN. Patient admitted to telemetry and initiated on CHF protocol as well as IV antihypertensive therapy. Patient denies fever, chills, chest pain, p alpitation, productive cough, skin rash, recent contact, known exposure to COVID-19. Prior admission on 01/01/2022 reviewed. All medication listed at time of admission been reconciled. Advanced care planning conducted in ED. Hospital Course: 05/20: Blood pressure still not well controlled. Cardiology has added Procardia 60 mg twice daily and doxazosin 2 mg twice daily. I have added hydralazine 100 mg 3 times daily. Creatinine continues to worsen currently 2.9. May need to consider holding diuretics. will follow nephrology input. 05/21: Vital signs more control. Crackles on lung exam. Lasix dose increased to 80 mg po bid. Strict I/O to monitor output. BMP ordered for AM still pending. Continue to monitor Cr on serial bmp. Assessment and Plan: (1) Acute diastolic heart failure Current Visit: Yes Status: Acute Qualifiers: Heart failure type: systolic Heart failure chronicity: acute on chronic Qualified Code(s): I50.23 - Acute on chronic systolic (congestive) heart failure Plan to address problem: Strict I/O, monitoring E family weight, low reduction, blood pressure control, diuresis, cardiology team consulted. Echocardiogram : EF 50-55%. Diuresis with lasix GDMT (2) Hypertensive emergency Current Visit: Yes Status: Acute Plan to address problem: IV antihypertensive therapy, monitor blood pressure every shift, continue medical management, telemetry monitoring. - procardia, doxazozin, hydralazine, lasix (3) Acute kidney injury (EDI) with acute tubular necrosis (ATN) (4) Cardiorenal syndrome - Renal ultrasound: negative for obstruction - urine electrolytes - lasix - strict I/O's. - serial bmp. - nephrology following. (5) Obesity hypoventilation syndrome Balanced diet, increase physical activity discharge, outpatient pulmonary follow-up for sleep study (6) Hyperlipidemia Current Visit: Yes Status: Acute Qualifiers: Hyperlipidemia type: mixed hyperlipidemia Qualified Code(s): E78.2 - Mixed hyperlipidemia Plan to address problem: Statin therapy, lipid panel, supportive care. (7) GERD (gastroesophageal reflux disease) Current Visit: Yes Status: Acute Plan to address problem: PPI therapy, supportive care (8) Metabolic syndrome Current Visit: Yes Status: Acute Plan to address problem: Balanced diet, risk factor reduction, weight reduction, meal planning. Low- cholesterol diet (9) DVT prophylaxis Current Visit: Yes Status: Acute Plan to address problem: SCD to bilateral lower extremities while in bed (10) Advance care planning Current Visit: Yes Status: Acute Plan to address problem: Disease education data, care plan discussed, diagnoses discussed, prognosis discussed, patient is full code. Patient acknowledges understanding agreement with care plan, +30 minutes. (11) Preventative health care Current Visit: Yes Status: Acute Plan to address problem: Patient counseled regarding meal planning, increase physical activity at discharge, weight reduction, outpatient follow-up with primary care physician for all age and risk factor appropriate screening test. +30 minutes. History Interval history: No acute complaints this AM. Patient states that she does not make much urine. D/w RN to obtain strict I/O on patient as it will help with renal assessment. Hospitalist Physical - Physical exam Narrative exam: Physical Exam: General appearance: well-developed, obese, appears stated age, no distress HEENT: atraumatic, MESSI, no icterus Neck: trachea midline Respiratory: bilateral rales heard Heart: S1S2, regular, no murmur Abdomen: soft, obese, bowel sounds heard, NT Integumentary: no rash on the inspected area Neurologic: AO, able to move extremities Ext: 1+ Ext and dependent edema - Constitutional Vitals: Temp Pulse Resp BP Pulse Ox 98.5 F 71 20 130/50 99 05/21/22 06:36 05/21/22 05:48 05/21/22 05:48 05/21/22 05:48 05/21/22 06:00 General appearance: Present: no acute distress HEART Score - HEART Score Troponin: Troponin T 0.020 ng/mL (0.00-0.029) 05/18/22 12:09 Results - Labs CBC & Chem 7: 05/18/22 07:09 05/20/22 05:37 Labs: Laboratory Last Values WBC 6.0 K/mm3 (4.5-11.0) 05/18/22 07:09 RBC 3.20 M/mm3 (3.65-5.03) L 05/18/22 07:09 Hgb 8.0 gm/dl (10.1-14.3) L 05/18/22 07:09 Hct 24.6 % (30.3-42.9) L 05/18/22 07:09 MCV 77 fl (79-97) L 05/18/22 07:09 MCH 25 pg (28-32) L 05/18/22 07:09 MCHC 33 % (30-34) 05/18/22 07:09 RDW 14.3 % (13.2-15.2) 05/18/22 07:09 Plt Count 298 K/mm3 (140-440) 05/18/22 07:09 Lymph % (Auto) 20.7 % (13.4-35.0) 05/18/22 07:09 [place] % (Auto) 5.7 % (0.0-7.3) 05/18/22 07:09 Eos % (Auto) 3.2 % (0.0-4.3) 05/18/22 07:09 Baso % (Auto) 0.7 % (0.0-1.8) 05/18/22 07:09 Lymph # (Auto) 1.2 K/mm3 (1.2-5.4) 05/18/22 07:09 [place] # (Auto) 0.3 K/mm3 (0.0-0.8) 05/18/22 07:09 Eos # (Auto) 0.2 K/mm3 (0.0-0.4) 05/18/22 07:09 Baso # (Auto) 0.0 K/mm3 (0.0-0.1) 05/18/22 07:09 Seg Neutrophils % 69.7 % (40.0-70.0) 05/18/22 07:09 Seg Neutrophils # 4.2 K/mm3 (1.8-7.7) 05/18/22 07:09 Sodium 140 mmol/L (137-145) 05/20/22 05:37 Potassium 4.3 mmol/L (3.6-5.0) 05/20/22 05:37 Chloride 105.4 mmol/L (98-107) 05/20/22 05:37 Carbon Dioxide 25 mmol/L (22-30) 05/20/22 05:37 Anion Gap 14 mmol/L 05/20/22 05:37 BUN 41 mg/dL (7-17) H 05/20/22 05:37 Creatinine 2.9 mg/dL (0.6-1.2) H 05/20/22 05:37 Estimated GFR 17 ml/min 05/20/22 05:37 BUN/Creatinine Ratio 14 % 05/20/22 05:37 Glucose 204 mg/dL (65-100) H 05/20/22 05:37 Calcium 8.7 mg/dL (8.4-10.2) 05/20/22 05:37 Magnesium 2.10 mg/dL (1.7-2.3) 05/18/22 12:09 Total Bilirubin < 0.20 mg/dL (0.1-1.2) 05/18/22 04:49 AST 17 units/L (5-40) 05/18/22 04:49 ALT 14 units/L (7-56) 05/18/22 04:49 Alkaline Phosphatase 117 units/L (35-129) 05/18/22 04:49 Troponin T 0.020 ng/mL (0.00-0.029) 05/18/22 12:09 NT-Pro-B Natriuret Pep 6190 pg/mL (0-900) H 05/18/22 04:50 Total Protein 5.4 g/dL (6.3-8.2) L 05/18/22 04:49 Albumin 3.1 g/dL (3.9-5) L 05/18/22 04:49 Albumin/Globulin Ratio 1.3 % 05/18/22 04:49 Lipase 45 units/L (13-60) 05/18/22 04:50 TSH 2.280 mlU/mL (0.270-4.200) 05/18/22 12:09 Free T4 1.08 ng/dL (0.76-1.46) 05/18/22 12:09 Urine Creatinine 74.1 mg/dL (0.1-20.0) H 05/19/22 15:45 Urine Sodium 83 mmol/L 05/19/22 15:45 Urine Total Protein 97 mg/dL (5-11.8) H 05/19/22 15:45 Cruz/IV: Voiding Method Toilet Active Medications - Current Medications Current Medications: Generic Name Dose Route Start Last Admin Trade Name Freq PRN Reason Stop Dose Admin Acetaminophen 650 mg 05/18/22 12:30 05/20/22 22:07 Acetaminophen 325 Mg Tab PO 650 mg Q4H PRN Administration Pain MILD(1-3)/Fever >100.5/LUQUE Albuterol 2.5 mg 05/18/22 12:00 Albuterol 2.5 Mg/3 Ml Nebu IH Q4HRT PRN Shortness Of Breath Cetirizine HCl 10 mg 05/19/22 14:00 05/21/22 11:03 Cetirizine 10 Mg Tab PO 10 mg DAILY NATY Administration Doxazosin Mesylate 2 mg 05/19/22 11:00 05/21/22 11:03 Doxazosin 1 Mg Tab PO 2 mg BID NATY Administration Fluticasone Propionate 50 mcg 05/19/22 14:00 05/21/22 11:04 Fluticasone Propionate Nasal [place] 16 Gm NS 50 mcg QDAY NATY Administration Furosemide 80 mg 05/21/22 09:00 Furosemide 40 Mg Tab PO 0600,1800 NATY Hydralazine HCl 100 mg 05/20/22 20:00 05/21/22 11:06 Hydralazine 100 Mg Tab PO 100 mg TID NATY Administration Metoprolol Tartrate 12.5 mg 05/18/22 13:00 05/21/22 11:03 Metoprolol Tartrate 25 Mg Tab PO 12.5 mg BID NATY Administration Nifedipine 60 mg 05/19/22 11:00 05/21/22 11:03 Nifedipine Xl 60 Mg Tab PO 60 mg Q12HR NATY Administration Ondansetron HCl 4 mg 05/18/22 12:30 05/21/22 11:04 Ondansetron 4 Mg/2 Ml Inj IV 4 mg Q8H PRN Administration Nausea And Vomiting Oxycodone/Acetaminophen 1 tab 05/19/22 15:34 05/21/22 11:04 Oxycodone /Acetaminophen 5-325mg Tab PO 1 tab Q8H PRN Administration Pain, Moderate (4-6) Sodium Chloride 10 ml 05/18/22 22:00 05/21/22 11:05 Sodium Chloride 0.9% 10 Ml Flush Syringe IV 10 ml BID NATY Administration Sodium Chloride 10 ml 05/18/22 12:30 Sodium Chloride 0.9% 10 Ml Flush Syringe IV PRN PRN LINE FLUSH Tizanidine HCl 4 mg 05/19/22 12:42 05/19/22 21:30 Tizanidine Tab 4 Mg Tab PO 4 mg BID PRN Administration Muscle Spasm
--- NOTE | 2022-05-21 13:45 | Progress Note ---
Assessment and Plan - Patient Problems (1) Uncontrolled hypertension Current Visit: Yes Status: Acute Plan to address problem: Patient presented with severe uncontrolled hypertension with systolic blood pressures at 226. BP control is much better improved on Procardia XL 60 mg twice daily and doxazosin 2 mg twice daily. (2) Congestive heart failure Current Visit: Yes Status: Acute Plan to address problem: Congestive heart failure fluid overload is likely diastolic heart failure in the setting of persistent, severe uncontrolled hypertension. We will aggressively control blood pressure and continue intravenous diuretics. I have advised patient on a strict low-salt diet. Once blood pressure control is optimized, patient may be discharged on current blood pressure regimen as well as diuretics, she has a thallium stress test already scheduled with her primary zipper ironer Dr. Prado. Subjective Date of service: 05/21/22 Principal diagnosis: Diastolic heart failure Interval history: Patient is comfortable, no new cardiac complaints, no acute distress. It will be noted that her blood pressure is much better controlled on the combination of nifedipine XL and doxazosin, currently 130s systolic. Objective Vital Signs Temp Pulse Resp BP Pulse Ox 05/21/22 11:01 99.3 F 88 22 152/52 97 05/21/22 10:00 98 05/21/22 09:33 92 H 132/69 97 05/21/22 06:36 98.5 F 05/21/22 06:00 99 05/21/22 05:48 71 20 130/50 87 05/20/22 22:15 98.6 F 05/20/22 22:07 89 171/71 05/20/22 22:05 89 171/71 05/20/22 22:00 96 05/20/22 21:56 88 20 171/71 93 05/20/22 18:00 100 05/20/22 16:32 100.0 F H 89 24 173/86 95 - Physical Examination General: No Apparent Distress HEENT: Positive: PERRL Neck: Positive: neck supple Cardiac: Positive: Reg Rate and Rhythm Lungs: Positive: clear to auscultation Neuro: Positive: Grossly Intact Abdomen: Positive: Soft Skin: Positive: Clear Extremities: Absent: edema
[2022-05-21 13:46] LABS: Basophils % (Auto) 0.6 % (0.0-1.8); Eosinophils # (Auto) 0.1 K/mm3 (0.0-0.4); Hematocrit 21.3 % (30.3-42.9); Hemoglobin 7.3 gm/dl (10.1-14.3); Lymphocytes # (Auto) 1.1 K/mm3 (1.2-5.4); Lymphocytes % (Auto) 20.4 % (13.4-35.0); Mean Corpuscular HGB Conc 34 % (30-34); Mean Corpuscular Volume 76 fl (79-97); Monocytes # (Auto) 0.3 K/mm3 (0.0-0.8); Monocytes % (Auto) 5.8 % (0.0-7.3); Platelet Count 250 K/mm3 (140-440); Red Blood Count 2.79 M/mm3 (3.65-5.03); Red Cell Distribution Width 14.3 % (13.2-15.2)
[2022-05-21 13:59] LABS: Calcium 8.1 mg/dL (8.4-10.2)
[2022-05-21] MEDS: FUROSEMIDE 40 MG TAB PO SCH (17:01)
[2022-05-21] MEDS ORDERED: FUROSEMIDE 40 MG TAB PO SCH (18:00)
[2022-05-22 05:33] LABS: Basophils % (Auto) 0.5 % (0.0-1.8); Eosinophils # (Auto) 0.1 K/mm3 (0.0-0.4); Eosinophils % (Auto) 2.4 % (0.0-4.3); Hematocrit 22.9 % (30.3-42.9); Hemoglobin 7.6 gm/dl (10.1-14.3); Lymphocytes # (Auto) 1.3 K/mm3 (1.2-5.4); Lymphocytes % (Auto) 21.9 % (13.4-35.0); Mean Corpuscular HGB Conc 33 % (30-34); Mean Corpuscular Volume 76 fl (79-97); Monocytes # (Auto) 0.4 K/mm3 (0.0-0.8); Monocytes % (Auto) 6.3 % (0.0-7.3); Platelet Count 286 K/mm3 (140-440); Red Blood Count 3.02 M/mm3 (3.65-5.03); Red Cell Distribution Width 14.6 % (13.2-15.2)
[2022-05-22 05:49] LABS: Calcium 8.6 mg/dL (8.4-10.2)
[2022-05-22] MEDS: FUROSEMIDE 40 MG TAB PO SCH ×3 (06:07→17:51)
[2022-05-22] MEDS: FLUTICASONE PROPIONATE NASAL SPRAY 16 GM NS SCH (10:01)
[2022-05-22] MEDS: DOXAZOSIN 1 MG TAB PO SCH ×2 (10:02→22:30)
[2022-05-22] MEDS: METOPROLOL TARTRATE 25 MG TAB PO SCH ×2 (10:03→22:30)
[2022-05-22] MEDS: CETIRIZINE 10 MG TAB PO SCH (10:03)
[2022-05-22] MEDS: NIFEdipine XL 60 MG TAB PO SCH ×2 (10:03→22:30)
[2022-05-22] MEDS: hydrALAZINE 100 MG TAB PO SCH ×3 (10:03→20:55)
--- NOTE | 2022-05-22 10:33 | Progress Note ---
Assessment and Plan Assessment and plan: 52 YO Female with Obesity Hypoventilation Syndrome, HTN, DM, Cardiorenal Syndrome, HLD, OA, GERD presents to ED for evaluation. Patient reports "I cannot breathe". Patient states that over the past 1 week she had experienced shortness of breath and chest discomfort with worsening symptoms over the past 2 days. Patient acknowledges decreased exercise tolerance, orthopnea, paroxysmal nocturnal dyspnea, decreased exercise tolerance, leg edema, and increased blood pressure. Patient also acknowledges 8 pound weight gain over the past 1 week. Patient transported to [facility] via private vehicle for further care and evaluation of the aforementioned symptoms. [facility] All lab and imaging studies reviewed. Patient found to have a blood pressure of 241/112 mmHg which is consistent with hypertensive emergency as well as clinical symptoms consistent with CHF, EDI with ATN. Patient admitted to telemetry and initiated on CHF protocol as well as IV antihypertensive therapy. Patient denies fever, chills, chest pain, palpitation, productive cough, skin rash, recent contact, known exposure to COVID-19. Prior admission on 01/01/2022 reviewed. All medication listed at time of admission been reconciled. Advanced care planning conducted in ED. Hospital Course: 05/20: Blood pressure still not well controlled. Cardiology has added Procardia 60 mg twice daily and doxazosin 2 mg twice daily. I have added hydralazine 100 mg 3 times daily. Creatinine continues to worsen currently 2.9. May need to consider holding diuretics. will follow nephrology input. 05/21: Vital signs more control. Crackles on lung exam. Lasix dose increased to 80 mg po bid. Strict I/O to monitor output. BMP ordered for AM still pending. Continue to monitor Cr on serial bmp. 05/22: Patient seen and examined, Still with shortness of breath, Continue flonase, will check orthostatic, continue with diuresis, await Nephrology and Cardiology re-evaluation. Encouraged out of bed to chair. Outpatient Sleep study Assessment and Plan: (1) Acute diastolic heart failure Current Visit: Yes Status: Acute Qualifiers: Heart failure type: systolic Heart failure chronicity: acute on chronic Qualified Code(s): I50.23 - Acute on chronic systolic (congestive) heart failure Plan to address problem: Strict I/O, monitoring E family weight, low reduction, blood pressure control, diuresis, cardiology team consulted. Echocardiogram : EF 50-55%. Diuresis with lasix GDMT (2) Hypertensive emergency Current Visit: Yes Status: Acute Plan to address problem: IV antihypertensive therapy, monitor blood pressure every shift, continue medical management, telemetry monitoring. - procardia, doxazozin, hydralazine, lasix (3) Acute kidney injury (EDI) with acute tubular necrosis (ATN) (4) Cardiorenal syndrome - Renal ultrasound: negative for obstruction - urine electrolytes - lasix - strict I/O's. - serial bmp. - nephrology following. (5) Obesity hypoventilation syndrome Balanced diet, increase physical activity discharge, outpatient pulmonary follow-up for sleep study (6) Hyperlipidemia Current Visit: Yes Status: Acute Qualifiers: Hyperlipidemia type: mixed hyperlipidemia Qualified Code(s): E78.2 - Mixed hyperlipidemia Plan to address problem: Statin therapy, lipid panel, supportive care. (7) GERD (gastroesophageal reflux disease) Current Visit: Yes Status: Acute Plan to address problem: PPI therapy, supportive care (8) Metabolic syndrome Current Visit: Yes Status: Acute Plan to address problem: Balanced diet, risk factor reduction, weight reduction, meal planning. Low- cholesterol diet (9) DVT prophylaxis Current Visit: Yes Status: Acute Plan to address problem: SCD to bilateral lower extremities while in bed (10) Advance care planning Current Visit: Yes Status: Acute Plan to address problem: Disease education data, care plan discussed, diagnoses discussed, prognosis discussed, patient is full code. Patient acknowledges understanding agreement with care plan, +30 minutes. (11) Preventative health care Current Visit: Yes Status: Acute Plan to address problem: Patient counseled regarding meal planning, increase physical activity at discharge, weight reduction, outpatient follow-up with primary care physician for all age and risk factor appropriate screening test. +30 minutes. History Interval history: Patient seen and examined, still with dyspnea, and became dizzy on attempted home o2 eval. Reports congested. Hospitalist Physical - Physical exam Narrative exam: General appearance: well-developed, obese, appears stated age, no distress HEENT: atraumatic, MESSI, no icterus Neck: trachea midline Respiratory: bilateral rales heard Heart: S1S2, regular, no murmur Abdomen: soft, obese, bowel sounds heard, NT Integumentary: no rash on the inspected area Neurologic: AO, able to move extremities Ext: 1+ Ext and dependent edema - Constitutional Vitals: Temp Pulse Resp BP Pulse Ox 99.4 F 77 18 140/59 96 05/22/22 04:28 05/22/22 04:28 05/22/22 04:28 05/22/22 10:03 05/22/22 10:14 General appearance: Present: no acute distress HEART Score - HEART Score Troponin: Troponin T 0.020 ng/mL (0.00-0.029) 05/18/22 12:09 Results - Labs CBC & Chem 7: 05/22/22 05:14 05/22/22 05:14 Labs: Laboratory Last Values WBC 5.9 K/mm3 (4.5-11.0) 05/22/22 05:14 RBC 3.02 M/mm3 (3.65-5.03) L 05/22/22 05:14 Hgb 7.6 gm/dl (10.1-14.3) L 05/22/22 05:14 Hct 22.9 % (30.3-42.9) L 05/22/22 05:14 MCV 76 fl (79-97) L 05/22/22 05:14 MCH 25 pg (28-32) L 05/22/22 05:14 MCHC 33 % (30-34) 05/22/22 05:14 RDW 14.6 % (13.2-15.2) 05/22/22 05:14 Plt Count 286 K/mm3 (140-440) 05/22/22 05:14 Lymph % (Auto) 21.9 % (13.4-35.0) 05/22/22 05:14 [place] % (Auto) 6.3 % (0.0-7.3) 05/22/22 05:14 Eos % (Auto) 2.4 % (0.0-4.3) 05/22/22 05:14 Baso % (Auto) 0.5 % (0.0-1.8) 05/22/22 05:14 Lymph # (Auto) 1.3 K/mm3 (1.2-5.4) 05/22/22 05:14 [place] # (Auto) 0.4 K/mm3 (0.0-0.8) 05/22/22 05:14 Eos # (Auto) 0.1 K/mm3 (0.0-0.4) 05/22/22 05:14 Baso # (Auto) 0.0 K/mm3 (0.0-0.1) 05/22/22 05:14 Seg Neutrophils % 68.9 % (40.0-70.0) 05/22/22 05:14 Seg Neutrophils # 4.1 K/mm3 (1.8-7.7) 05/22/22 05:14 Sodium 140 mmol/L (137-145) 05/22/22 05:14 Potassium 4.5 mmol/L (3.6-5.0) 05/22/22 05:14 Chloride 105.3 mmol/L (98-107) 05/22/22 05:14 Carbon Dioxide 24 mmol/L (22-30) 05/22/22 05:14 Anion Gap 15 mmol/L 05/22/22 05:14 BUN 42 mg/dL (7-17) H 05/22/22 05:14 Creatinine 3.6 mg/dL (0.6-1.2) H 05/22/22 05:14 Estimated GFR 13 ml/min 05/22/22 05:14 BUN/Creatinine Ratio 12 % 05/22/22 05:14 Glucose 162 mg/dL (65-100) H 05/22/22 05:14 Calcium 8.6 mg/dL (8.4-10.2) 05/22/22 05:14 Magnesium 2.10 mg/dL (1.7-2.3) 05/18/22 12:09 Total Bilirubin < 0.20 mg/dL (0.1-1.2) 05/18/22 04:49 AST 17 units/L (5-40) 05/18/22 04:49 ALT 14 units/L (7-56) 05/18/22 04:49 Alkaline Phosphatase 117 units/L (35-129) 05/18/22 04:49 Troponin T 0.020 ng/mL (0.00-0.029) 05/18/22 12:09 NT-Pro-B Natriuret Pep 6190 pg/mL (0-900) H 05/18/22 04:50 Total Protein 5.4 g/dL (6.3-8.2) L 05/18/22 04:49 Albumin 3.1 g/dL (3.9-5) L 05/18/22 04:49 Albumin/Globulin Ratio 1.3 % 05/18/22 04:49 Lipase 45 units/L (13-60) 05/18/22 04:50 TSH 2.280 mlU/mL (0.270-4.200) 05/18/22 12:09 Free T4 1.08 ng/dL (0.76-1.46) 05/18/22 12:09 Urine Creatinine 74.1 mg/dL (0.1-20.0) H 05/19/22 15:45 Urine Sodium 83 mmol/L 05/19/22 15:45 Urine Total Protein 97 mg/dL (5-11.8) H 05/19/22 15:45 Cruz/IV: Voiding Method Toilet Active Medications - Current Medications Current Medications: Generic Name Dose Route Start Last Admin Trade Name Freq PRN Reason Stop Dose Admin Acetaminophen 650 mg 05/18/22 12:30 05/20/22 22:07 Acetaminophen 325 Mg Tab PO 650 mg Q4H PRN Administration Pain MILD(1-3)/Fever >100.5/LUQUE Albuterol 2.5 mg 05/18/22 12:00 Albuterol 2.5 Mg/3 Ml Nebu IH Q4HRT PRN Shortness Of Breath Cetirizine HCl 10 mg 05/19/22 14:00 05/22/22 10:03 Cetirizine 10 Mg Tab PO 10 mg DAILY NATY Administration Doxazosin Mesylate 2 mg 05/19/22 11:00 05/22/22 10:02 Doxazosin 1 Mg Tab PO 2 mg BID NATY Administration Fluticasone Propionate 50 mcg 05/19/22 14:00 05/22/22 10:01 Fluticasone Propionate Nasal [place] 16 Gm NS 50 mcg QDAY NATY Administration Furosemide 40 mg 05/22/22 11:00 Furosemide 40 Mg Tab PO 0600,1800 NATY Hydralazine HCl 100 mg 05/20/22 20:00 05/22/22 10:03 Hydralazine 100 Mg Tab PO 100 mg TID NATY Administration Metoprolol Tartrate 12.5 mg 05/18/22 13:00 05/22/22 10:03 Metoprolol Tartrate 25 Mg Tab PO 12.5 mg BID NATY Administration Nifedipine 60 mg 05/19/22 11:00 05/22/22 10:03 Nifedipine Xl 60 Mg Tab PO 60 mg Q12HR ANTY Administration Ondansetron HCl 4 mg 05/18/22 12:30 05/21/22 20:58 Ondansetron 4 Mg/2 Ml Inj IV 4 mg Q8H PRN Administration Nausea And Vomiting Oxycodone/Acetaminophen 1 tab 05/19/22 15:34 05/21/22 19:08 Oxycodone /Acetaminophen 5-325mg Tab PO 1 tab Q8H PRN Administration Pain, Moderate (4-6) Sodium Chloride 10 ml 05/18/22 22:00 05/22/22 10:04 Sodium Chloride 0.9% 10 Ml Flush Syringe IV 10 ml BID NATY Administration Sodium Chloride 10 ml 05/18/22 12:30 Sodium Chloride 0.9% 10 Ml Flush Syringe IV PRN PRN LINE FLUSH Tizanidine HCl 4 mg 05/19/22 12:42 05/19/22 21:30 Tizanidine Tab 4 Mg Tab PO 4 mg BID PRN Administration Muscle Spasm
--- NOTE | 2022-05-22 13:34 | Progress Note ---
Assessment and Plan - Patient Problems (1) Uncontrolled hypertension Current Visit: Yes Status: Acute Plan to address problem: Patient presented with severe uncontrolled hypertension with systolic blood pressures at 226. BP control is much better improved on Procardia XL 60 mg twice daily and doxazosin 2 mg twice daily. (2) Congestive heart failure Current Visit: Yes Status: Acute Plan to address problem: Congestive heart failure fluid overload is likely diastolic heart failure in the setting of persistent, severe uncontrolled hypertension. We will aggressively control blood pressure and continue intravenous diuretics. I have advised patient on a strict low-salt diet. Once blood pressure control is optimized, patient may be discharged on current blood pressure regimen as well as diuretics, she has a thallium stress test already scheduled with her primary stock control clerk Dr. Prado. Subjective Date of service: 05/22/22 Principal diagnosis: Diastolic heart failure Interval history: Patient is comfortable, no new cardiac complaints, no acute distress. It will be noted that her blood pressure is much better controlled on the combination of nifedipine XL and doxazosin, currently 140 systolic. Objective Vital Signs Temp Pulse Resp BP Pulse Ox 05/22/22 11:28 98.6 F 94 H 20 125/68 97 05/22/22 10:14 96 05/22/22 10:03 140/59 05/22/22 10:02 140/59 05/22/22 04:28 99.4 F 77 18 141/59 95 05/22/22 00:26 96 05/21/22 23:08 99.9 F H 75 20 131/58 95 05/21/22 22:00 99 05/21/22 20:08 18 05/21/22 18:00 99 05/21/22 16:10 98.6 F 83 22 167/69 90 - Physical Examination General: No Apparent Distress HEENT: Positive: PERRL Neck: Positive: neck supple Cardiac: Positive: Reg Rate and Rhythm Lungs: Positive: Decreased Breath Sounds Neuro: Positive: Grossly Intact Abdomen: Positive: Soft Skin: Positive: Clear Extremities: Absent: edema - Labs and Meds CBC 05/21/22 05/22/22 Range/Units 13:20 05:14 WBC 5.5 5.9 (4.5-11.0) K/mm3 RBC 2.79 L 3.02 L (3.65-5.03) M/mm3 Hgb 7.3 L 7.6 L (10.1-14.3) gm/dl Hct 21.3 L 22.9 L (30.3-42.9) % Plt Count 250 286 (140-440) K/mm3 Lymph # (Auto) 1.1 L 1.3 (1.2-5.4) K/mm3 [place] # (Auto) 0.3 0.4 (0.0-0.8) K/mm3 Eos # (Auto) 0.1 0.1 (0.0-0.4) K/mm3 Baso # (Auto) 0.0 0.0 (0.0-0.1) K/mm3 Comprehensive Metabolic Panel 05/21/22 05/22/22 Range/Units 13:20 05:14 Sodium 138 140 (137-145) mmol/L Potassium 4.8 4.5 (3.6-5.0) mmol/L Chloride 104.8 105.3 (98-107) mmol/L Carbon Dioxide 23 24 (22-30) mmol/L BUN 39 H 42 H (7-17) mg/dL Creatinine 3.6 H 3.6 H (0.6-1.2) mg/dL Glucose 200 H 162 H (65-100) mg/dL Calcium 8.1 L 8.6 (8.4-10.2) mg/dL
--- NOTE | 2022-05-22 14:44 | Progress Note ---
Assessment and Plan 1. Acute kidney injury: EDI superimposed on CKD. Renal US negative for hydro/stone. Monitor renal function. Creatinine level increasing. Renal prognosis is guarded. Avoid nephrotoxic agents. Meds dosage based on GFR. 2. FEN: Volume overload, on Lasix. Counseled to limit salt and fluid intake. Replete lytes as needed. Monitor lytes and volume status. 3. HFpEF, POA: Echo with normal EF. Followed by Cards. 4. Hypertensive urgency: Volume control. Adjust meds as appropriate. BP is better now. 5. DM: Monitor. 6. Microcytic anemia, POA: Trend. Subjective: Patient was seen and examined at the bedside. No new complaint. Family member at the bedside. Examination: General appearance: well-developed, obese, appears stated age, no distress HEENT: atraumatic, MESSI, no icterus Neck: trachea midline Respiratory: ctab Heart: S1S2, regular, no murmur Abdomen: soft, obese, bowel sounds heard, NT Integumentary: no rash on the inspected area Neurologic: AO, able to move extremities Ext: no edema Subjective Date of service: 05/22/22 Principal diagnosis: Diastolic heart failure Objective - Vital Signs Vital signs: Vital Signs - 12hr 05/22/22 05/22/22 05/22/22 04:28 10:02 10:03 Temperature 99.4 F Pulse Rate 77 Respiratory 18 Rate Blood Pressure 141/59 140/59 140/59 O2 Sat by Pulse 95 Oximetry 05/22/22 05/22/22 10:14 11:28 Temperature 98.6 F Pulse Rate 94 H Respiratory 20 Rate Blood Pressure 125/68 O2 Sat by Pulse 96 97 Oximetry - Lab 05/23/22 06:07 05/23/22 06:07 Most recent lab results Calcium 8.6 mg/dL (8.4-10.2) 05/22/22 05:14 Magnesium 2.10 mg/dL (1.7-2.3) 05/18/22 12:09 Urine Creatinine 74.1 mg/dL (0.1-20.0) H 05/19/22 15:45 Urine Sodium 83 mmol/L 05/19/22 15:45 Urine Total Protein 97 mg/dL (5-11.8) H 05/19/22 15:45 Medications & Allergies - Medications Allergies/Adverse Reactions: Allergies Penicillins Allergy (Verified 05/17/22 14:48) Itching Home Medications: Home Medications Medication Instructions Recorded Confirmed Last Taken Type Metoclopramide [Reglan] 10 mg PO QID PRN #30 tablet 05/31/20 05/19/22 Unknown Rx AtorvaSTATin [Lipitor] 80 mg PO DAILY 11/13/21 05/19/22 1 Day Ago History ~11/12/21 Insulin NPH Hum/Reg Insulin Hm 20 unit SQ BID 11/13/21 05/19/22 11/12/21 History [Humulin 70-30 Vial] amLODIPine 5 mg PO DAILY #30 tab 05/13/22 05/19/22 Unknown Rx Dicyclomine [Bentyl] 10 mg PO QID 05/19/22 05/19/22 Unknown History Metoprolol [Lopressor TAB] 50 mg PO BID 05/19/22 05/19/22 Unknown History NIFEdipine [Nifedipine ER] 90 mg PO DAILY 05/19/22 05/19/22 Unknown History Polymyxin B Sulf/Trimethoprim 2 drop OP Q3H 05/19/22 05/19/22 Unknown History Terazosin HCl 5 mg PO QHS 05/19/22 05/19/22 Unknown History Triamter/Hctz 37.5-25 mg 37.5 mg PO DAILY 05/19/22 05/19/22 Unknown History tiZANidine [Zanaflex 4mg TAB] 4 mg PO DAILY 05/19/22 05/19/22 Unknown History Active Medications: Generic Name Dose Route Start Last Admin Trade Name Freq PRN Reason Stop Dose Admin Acetaminophen 650 mg 05/18/22 12:30 05/20/22 22:07 Acetaminophen 325 Mg Tab PO 650 mg Q4H PRN Administration Pain MILD(1-3)/Fever >100.5/LUQUE Albuterol 2.5 mg 05/18/22 12:00 Albuterol 2.5 Mg/3 Ml Nebu IH Q4HRT PRN Shortness Of Breath Cetirizine HCl 10 mg 05/19/22 14:00 05/22/22 10:03 Cetirizine 10 Mg Tab PO 10 mg DAILY NATY Administration Doxazosin Mesylate 2 mg 05/19/22 11:00 05/22/22 10:02 Doxazosin 1 Mg Tab PO 2 mg BID NATY Administration Fluticasone Propionate 50 mcg 05/19/22 14:00 05/22/22 10:01 Fluticasone Propionate Nasal [place] 16 Gm NS 50 mcg QDAY NATY Administration Furosemide 40 mg 05/22/22 11:00 05/22/22 12:32 Furosemide 40 Mg Tab PO 40 mg 0600,1800 NATY Administration Hydralazine HCl 100 mg 05/20/22 20:00 05/22/22 13:03 Hydralazine 100 Mg Tab PO 100 mg TID NATY Administration Metoprolol Tartrate 12.5 mg 05/18/22 13:00 05/22/22 10:03 Metoprolol Tartrate 25 Mg Tab PO 12.5 mg BID NATY Administration Nifedipine 60 mg 05/19/22 11:00 05/22/22 10:03 Nifedipine Xl 60 Mg Tab PO 60 mg Q12HR NATY Administration Ondansetron HCl 4 mg 05/18/22 12:30 05/21/22 20:58 Ondansetron 4 Mg/2 Ml Inj IV 4 mg Q8H PRN Administration Nausea And Vomiting Oxycodone/Acetaminophen 1 tab 05/19/22 15:34 05/21/22 19:08 Oxycodone /Acetaminophen 5-325mg Tab PO 1 tab Q8H PRN Administration Pain, Moderate (4-6) Sodium Chloride 10 ml 05/18/22 22:00 05/22/22 10:04 Sodium Chloride 0.9% 10 Ml Flush Syringe IV 10 ml BID NATY Administration Sodium Chloride 10 ml 05/18/22 12:30 Sodium Chloride 0.9% 10 Ml Flush Syringe IV PRN PRN LINE FLUSH Tizanidine HCl 4 mg 05/19/22 12:42 05/19/22 21:30 Tizanidine Tab 4 Mg Tab PO 4 mg BID PRN Administration Muscle Spasm
[2022-05-22] MEDS: ONDANSETRON 4 MG/2 ML INJ IV PRN (15:17)
[2022-05-22] MEDS: oxyCODONE /ACETAMINOPHEN 5-325MG TAB PO PRN (15:17)
[2022-05-22] MEDS: INSULIN LISPRO 100 UNIT/ML SUB-Q SCH (22:31)
[2022-05-23] MEDS ORDERED: METOCLOPRAMIDE 10 MG/2 ML INJ IV ONE (00:30)
[2022-05-23] MEDS ORDERED: hydrALAZINE 20 MG/1 ML INJ IV PRN (01:42)
[2022-05-23] MEDS ORDERED: FUROSEMIDE 40 MG/4 ML INJ IV SCH (06:00)
[2022-05-23 07:08] LABS: Hematocrit 23.1 % (30.3-42.9); Hemoglobin 7.8 gm/dl (10.1-14.3); Mean Corpuscular HGB Conc 34 % (30-34); Mean Corpuscular Volume 76 fl (79-97); Platelet Count 277 K/mm3 (140-440); Red Blood Count 3.03 M/mm3 (3.65-5.03); Red Cell Distribution Width 14.5 % (13.2-15.2)
[2022-05-23 07:26] LABS: Calcium 8.8 mg/dL (8.4-10.2)
--- NOTE | 2022-05-23 07:30 | Progress Note ---
Assessment and Plan Assessment and plan: 52 YO Female with Obesity Hypoventilation Syndrome, HTN, DM, Cardiorenal Syndrome, HLD, OA, GERD presents to ED for evaluation. Patient reports "I cannot breathe". Patient states that over the past 1 week she had experienced shortness of breath and chest discomfort with worsening symptoms over the past 2 days. Patient acknowledges decreased exercise tolerance, orthopnea, paroxysmal nocturnal dyspnea, decreased exercise tolerance, leg edema, and increased blood pressure. Patient also acknowledges 8 pound weight gain over the past 1 week. Patient transported to [facility] via private vehicle for further care and evaluation of the aforementioned symptoms. [facility] All lab and imaging studies reviewed. Patient found to have a blood pressure of 241/112 mmHg which is consistent with hypertensive emergency as well as clinical symptoms consistent with CHF, EDI with ATN. Patient admitted to telemetry and initiated on CHF protocol as well as IV antihypertensive therapy. Patient denies fever, chills, chest pain, palpitation, productive cough, skin rash, recent contact, known exposure to COVID-19. Prior admission on 01/01/2022 reviewed. All medication listed at time of admission been reconciled. Advanced care planning conducted in ED. Hospital Course: 05/20: Blood pressure still not well controlled. Cardiology has added Procardia 60 mg twice daily and doxazosin 2 mg twice daily. I have added hydralazine 100 mg 3 times daily. Creatinine continues to worsen currently 2.9. May need to consider holding diuretics. will follow nephrology input. 05/21: Vital signs more control. Crackles on lung exam. Lasix dose increased to 80 mg po bid. Strict I/O to monitor output. BMP ordered for AM still pending. Continue to monitor Cr on serial bmp. 05/22: Patient seen and examined, Still with shortness of breath, Continue flonase, will check orthostatic, continue with diuresis, await Nephrology and Cardiology re-evaluation. Encouraged out of bed to chair. Outpatient Sleep study 05/23: Patient experienced an episode of nausea with vomiting x1. While nephrology recommended Lasix 80 mg p.o. twice daily patient has been on IV Lasix 40 which is equivalent to the 80. Nevertheless we will check LFTs at this time and also her lipase level. Will obtain chest x-ray in respect to the persistent shortness of breath. I ordered orthostatics yesterday we will await that study. We will also check an ABG. On reexamination creatinine did come back significantly elevated LFTs are within normal limits. Will change Lasix to 40 p.o. twice daily instead of IV twice daily. She also does have low iron which likely lends to anemia of chronic renal disease we will start some iron supplementation. Assessment and Plan: (1) Acute diastolic heart failure Current Visit: Yes Status: Acute Qualifiers: Heart failure type: systolic Heart failure chronicity: acute on chronic Qualified Code(s): I50.23 - Acute on chronic systolic (congestive) heart failure Plan to address problem: Strict I/O, monitoring E family weight, low reduction, blood pressure control, diuresis, cardiology team consulted. Echocardiogram : EF 50-55%. Diuresis with lasix GDMT (2) Hypertensive emergency Current Visit: Yes Status: Acute Plan to address problem: IV antihypertensive therapy, monitor blood pressure every shift, continue medical management, telemetry monitoring. - procardia, doxazozin, hydralazine, lasix (3) Acute kidney injury (EDI) with acute tubular necrosis (ATN) (4) Cardiorenal syndrome - Renal ultrasound: negative for obstruction - urine electrolytes - lasix - strict I/O's. - serial bmp. - nephrology following. (5) Obesity hypoventilation syndrome Balanced diet, increase physical activity discharge, outpatient pulmonary follow-up for sleep study (6) Hyperlipidemia Current Visit: Yes Status: Acute Qualifiers: Hyperlipidemia type: mixed hyperlipidemia Qualified Code(s): E78.2 - Mixed hyperlipidemia Plan to address problem: Statin therapy, lipid panel, supportive care. (7) GERD (gastroesophageal reflux disease)/gastroenteritis Current Visit: Yes Status: Acute Plan to address problem: PPI therapy, supportive care (8) Metabolic syndrome Current Visit: Yes Status: Acute Plan to address problem: Balanced diet, risk factor reduction, weight reduction, meal planning. Low- cholesterol diet (9) epistaxis (10) iron deficiency anemia with underlying chronic renal disease (11) DVT prophylaxis Current Visit: Yes Status: Acute Plan to address problem: SCD to bilateral lower extremities while in bed (12) Advance care planning Current Visit: Yes Status: Acute Plan to address problem: Disease education data, care plan discussed, diagnoses discussed, prognosis discussed, patient is full code. Patient acknowledges understanding agreement with care plan, +30 minutes. (13) Preventative health care Current Visit: Yes Status: Acute Plan to address problem: Patient counseled regarding meal planning, increase physical activity at discha rge, weight reduction, outpatient follow-up with primary care physician for all age and risk factor appropriate screening test. +30 minutes. History Interval history: Patient seen and examined, overnight patient appears to have vomited x1 complaining of nausea also had epistaxis. Ice pack was placed. Patient was kept n.p.o. Hospitalist Physical - Physical exam Narrative exam: General appearance: well-developed, obese, appears stated age, no distress HEENT: atraumatic, MESSI, no icterus Neck: trachea midline Respiratory: bilateral rales heard Heart: S1S2, regular, no murmur Abdomen: soft, obese, bowel sounds heard, NT. Complained of discomfort when palpating the epigastric area but no pain or tenderness Integumentary: no rash on the inspected area Neurologic: AO, able to move extremities Ext: 1+ Ext and dependent edema - Constitutional Vitals: Temp Pulse Resp BP Pulse Ox 98.5 F 96 H 18 129/61 97 05/23/22 05:37 05/23/22 05:37 05/23/22 05:37 05/23/22 05:37 05/23/22 05:37 General appearance: Present: no acute distress HEART Score - HEART Score Troponin: Troponin T 0.020 ng/mL (0.00-0.029) 05/18/22 12:09 Results - Labs CBC & Chem 7: 05/23/22 06:07 05/23/22 06:07 Labs: Laboratory Last Values WBC 6.6 K/mm3 (4.5-11.0) 05/23/22 06:07 RBC 3.03 M/mm3 (3.65-5.03) L 05/23/22 06:07 Hgb 7.8 gm/dl (10.1-14.3) L 05/23/22 06:07 Hct 23.1 % (30.3-42.9) L 05/23/22 06:07 MCV 76 fl (79-97) L 05/23/22 06:07 MCH 26 pg (28-32) L 05/23/22 06:07 MCHC 34 % (30-34) 05/23/22 06:07 RDW 14.5 % (13.2-15.2) 05/23/22 06:07 Plt Count 277 K/mm3 (140-440) 05/23/22 06:07 Lymph % (Auto) 21.9 % (13.4-35.0) 05/22/22 05:14 [place] % (Auto) 6.3 % (0.0-7.3) 05/22/22 05:14 Eos % (Auto) 2.4 % (0.0-4.3) 05/22/22 05:14 Baso % (Auto) 0.5 % (0.0-1.8) 05/22/22 05:14 Lymph # (Auto) 1.3 K/mm3 (1.2-5.4) 05/22/22 05:14 [place] # (Auto) 0.4 K/mm3 (0.0-0.8) 05/22/22 05:14 Eos # (Auto) 0.1 K/mm3 (0.0-0.4) 05/22/22 05:14 Baso # (Auto) 0.0 K/mm3 (0.0-0.1) 05/22/22 05:14 Seg Neutrophils % 68.9 % (40.0-70.0) 05/22/22 05:14 Seg Neutrophils # 4.1 K/mm3 (1.8-7.7) 05/22/22 05:14 Sodium 140 mmol/L (137-145) 05/22/22 05:14 Potassium 4.5 mmol/L (3.6-5.0) 05/22/22 05:14 Chloride 105.3 mmol/L (98-107) 05/22/22 05:14 Carbon Dioxide 24 mmol/L (22-30) 05/22/22 05:14 Anion Gap 15 mmol/L 05/22/22 05:14 BUN 42 mg/dL (7-17) H 05/22/22 05:14 Creatinine 3.6 mg/dL (0.6-1.2) H 05/22/22 05:14 Estimated GFR 13 ml/min 05/22/22 05:14 BUN/Creatinine Ratio 12 % 05/22/22 05:14 Glucose 162 mg/dL (65-100) H 05/22/22 05:14 POC Glucose 129 mg/dL (70-105) H 05/22/22 21:56 Calcium 8.6 mg/dL (8.4-10.2) 05/22/22 05:14 Magnesium 2.10 mg/dL (1.7-2.3) 05/18/22 12:09 Total Bilirubin < 0.20 mg/dL (0.1-1.2) 05/18/22 04:49 AST 17 units/L (5-40) 05/18/22 04:49 ALT 14 units/L (7-56) 05/18/22 04:49 Alkaline Phosphatase 117 units/L (35-129) 05/18/22 04:49 Troponin T 0.020 ng/mL (0.00-0.029) 05/18/22 12:09 NT-Pro-B Natriuret Pep 6190 pg/mL (0-900) H 05/18/22 04:50 Total Protein 5.4 g/dL (6.3-8.2) L 05/18/22 04:49 Albumin 3.1 g/dL (3.9-5) L 05/18/22 04:49 Albumin/Globulin Ratio 1.3 % 05/18/22 04:49 Lipase 45 units/L (13-60) 05/18/22 04:50 TSH 2.280 mlU/mL (0.270-4.200) 05/18/22 12:09 Free T4 1.08 ng/dL (0.76-1.46) 05/18/22 12:09 Urine Creatinine 74.1 mg/dL (0.1-20.0) H 05/19/22 15:45 Urine Sodium 83 mmol/L 05/19/22 15:45 Urine Total Protein 97 mg/dL (5-11.8) H 05/19/22 15:45 Cruz/IV: Voiding Method Toilet Active Medications - Current Medications Current Medications: Generic Name Dose Route Start Last Admin Trade Name Freq PRN Reason Stop Dose Admin Acetaminophen 650 mg 05/18/22 12:30 05/20/22 22:07 Acetaminophen 325 Mg Tab PO 650 mg Q4H PRN Administration Pain MILD(1-3)/Fever >100.5/LUQUE Albuterol 2.5 mg 05/18/22 12:00 Albuterol 2.5 Mg/3 Ml Nebu IH Q4HRT PRN Shortness Of Breath Cetirizine HCl 10 mg 05/19/22 14:00 05/22/22 10:03 Cetirizine 10 Mg Tab PO 10 mg DAILY NATY Administration Doxazosin Mesylate 2 mg 05/19/22 11:00 05/22/22 22:30 Doxazosin 1 Mg Tab PO 2 mg BID NATY Administration Fluticasone Propionate 50 mcg 05/19/22 14:00 05/22/22 10:01 Fluticasone Propionate Nasal [place] 16 Gm NS 50 mcg QDAY NATY Administration Furosemide 40 mg 05/23/22 06:00 05/23/22 05:38 Furosemide 40 Mg/4 Ml Inj IV 40 mg 0600,1800 NATY Administration Hydralazine HCl 100 mg 05/20/22 20:00 05/22/22 20:55 Hydralazine 100 Mg Tab PO 100 mg TID NATY Administration Hydralazine HCl 10 mg 05/23/22 01:42 Hydralazine 20 Mg/1 Ml Inj IV Q6HR PRN Blood Pressure Insulin Human Lispro 0 unit 05/22/22 22:00 05/22/22 22:31 Insulin Lispro 100 Unit/Ml SUB-Q Not Given ACHS [facility] Protocol Metoprolol Tartrate 12.5 mg 05/18/22 13:00 05/22/22 22:30 Metoprolol Tartrate 25 Mg Tab PO 12.5 mg BID NATY Administration Nifedipine 60 mg 05/19/22 11:00 05/22/22 22:30 Nifedipine Xl 60 Mg Tab PO 60 mg Q12HR NATY Administration Ondansetron HCl 4 mg 05/23/22 07:26 Ondansetron 4 Mg/2 Ml Inj IV Q4H PRN Nausea And Vomiting Oxycodone/Acetaminophen 1 tab 05/19/22 15:34 05/22/22 15:17 Oxycodone /Acetaminophen 5-325mg Tab PO 1 tab Q8H PRN Administration Pain, Moderate (4-6) Oxymetazoline HCl 2 spray 05/23/22 07:25 Oxymetazoline 0.05% Nasal [place] NS Q12H PRN Nasal Congestion Sodium Chloride 10 ml 05/18/22 22:00 05/22/22 22:31 Sodium Chloride 0.9% 10 Ml Flush Syringe IV 10 ml BID NATY Administration Sodium Chloride 10 ml 05/18/22 12:30 Sodium Chloride 0.9% 10 Ml Flush Syringe IV PRN PRN LINE FLUSH Tizanidine HCl 4 mg 05/19/22 12:42 05/19/22 21:30 Tizanidine Tab 4 Mg Tab PO 4 mg BID PRN Administration Muscle Spasm
[2022-05-23] MEDS ORDERED: OXYMETAZOLINE 0.05% NASAL SPRAY NS PRN (08:00)
[2022-05-23] MEDS: hydrALAZINE 100 MG TAB PO SCH ×3 (08:19→20:48)
[2022-05-23 08:20] LABS: Alanine Aminotransferase 11 units/L (7-56); Albumin 2.9 g/dL (3.9-5)
[2022-05-23 08:23] LABS: Bilirubin,Direct < 0.2 mg/dL (0-0.2)
--- NOTE | 2022-05-23 10:16 | XRay Report ---
. CHEST 1 VIEW INDICATION: shortness of breath. COMPARISON: 05/18/2022 FINDINGS: SUPPORT DEVICES: None. HEART: Within normal limits. LUNGS/PLEURA: Persistent mild interstitial edema. No significant effusion. ADDITIONAL FINDINGS: None. IMPRESSION: 1. Lung findings as above. Signer Name: Abdoulaye Ragsdale MD Signed: 05/23/2022 10:11 AM Workstation Name: [id number]
--- NOTE | 2022-05-23 11:32 | Progress Note ---
Assessment and Plan 1. Acute kidney injury: EDI superimposed on CKD. Renal US negative for hydro/stone. Monitor renal function. Creatinine level increasing. Renal prognosis is guarded. Avoid nephrotoxic agents. Meds dosage based on GFR. 2. FEN: Volume overload, on Lasix. Counseled to limit salt and fluid intake. Replete lytes as needed. Monitor lytes and volume status. 3. HFpEF, POA: Echo with normal EF. Followed by Cards. 4. Hypertensive urgency: Volume control. Adjust meds as appropriate. BP is better now. 5. DM: Monitor. 6. Microcytic anemia, POA: Trend. Subjective: Patient was seen and examined at the bedside. No new complaint. Examination: General appearance: well-developed, obese, appears stated age, no distress HEENT: atraumatic, MESSI, no icterus Neck: trachea midline Respiratory: ctab Heart: S1S2, regular, no murmur Abdomen: soft, obese, bowel sounds heard, NT Integumentary: no rash on the inspected area Neurologic: AO, able to move extremities Ext: no edema Subjective Date of service: 05/23/22 Principal diagnosis: Diastolic heart failure Objective - Vital Signs Vital signs: Vital Signs - 12hr 05/22/22 05/23/22 05/23/22 23:33 05:37 08:19 Temperature 98.5 F Pulse Rate 96 H Respiratory 18 Rate Blood Pressure 129/61 O2 Sat by Pulse 95 97 94 Oximetry - Lab 05/24/22 06:01 05/24/22 06:01 Most recent lab results Calcium 8.8 mg/dL (8.4-10.2) 05/23/22 06:07 Magnesium 2.10 mg/dL (1.7-2.3) 05/18/22 12:09 Urine Creatinine 74.1 mg/dL (0.1-20.0) H 05/19/22 15:45 Urine Sodium 83 mmol/L 05/19/22 15:45 Urine Total Protein 97 mg/dL (5-11.8) H 05/19/22 15:45 Medications & Allergies - Medications Allergies/Adverse Reactions: Allergies Penicillins Allergy (Verified 05/17/22 14:48) Itching Home Medications: Home Medications Medication Instructions Recorded Confirmed Last Taken Type AtorvaSTATin [Lipitor] 80 mg PO DAILY 11/13/21 05/19/22 1 Day Ago History ~11/12/21 Insulin NPH Hum/Reg Insulin Hm 20 unit SQ BID 11/13/21 05/19/22 11/12/21 History [Humulin 70-30 Vial] amLODIPine 5 mg PO DAILY #30 tab 05/13/22 05/19/22 Unknown Rx Dicyclomine [Bentyl] 10 mg PO QID 05/19/22 05/19/22 Unknown History Polymyxin B Sulf/Trimethoprim 2 drop OP Q3H 05/19/22 05/19/22 Unknown History tiZANidine [Zanaflex 4mg TAB] 4 mg PO DAILY 05/19/22 05/19/22 Unknown History Famotidine [Pepcid] 40 mg PO QDAY 30 Days #30 tablet 05/24/22 Unknown Rx Furosemide [Lasix TAB] 40 mg PO DAILY 30 Days #30 tablet 05/24/22 Unknown Rx Metoclopramide [Reglan TAB] 10 mg PO QID PRN #30 tablet 05/24/22 Unknown Rx Metoprolol [Lopressor TAB] 50 mg PO BID 30 Days #60 tab 05/24/22 Unknown Rx NIFEdipine [Nifedipine ER] 90 mg PO DAILY 30 Days #30 tab 05/24/22 Unknown Rx Pantoprazole [Protonix TAB] 40 mg PO BIDAC 30 Days #60 tablet 05/24/22 Unknown Rx Terazosin HCl 5 mg PO QHS 30 Days #30 cap 05/24/22 Unknown Rx tiZANidine [Zanaflex 4mg TAB] 4 mg PO BID PRN tablet 05/24/22 Unknown Rx Active Medications: Generic Name Dose Route Start Last Admin Trade Name Freq PRN Reason Stop Dose Admin Acetaminophen 650 mg 05/18/22 12:30 05/20/22 22:07 Acetaminophen 325 Mg Tab PO 650 mg Q4H PRN Administration Pain MILD(1-3)/Fever >100.5/LUQUE Albuterol 2.5 mg 05/18/22 12:00 Albuterol 2.5 Mg/3 Ml Nebu IH Q4HRT PRN Shortness Of Breath Cetirizine HCl 10 mg 05/19/22 14:00 05/22/22 10:03 Cetirizine 10 Mg Tab PO 10 mg DAILY NATY Administration Doxazosin Mesylate 2 mg 05/19/22 11:00 05/22/22 22:30 Doxazosin 1 Mg Tab PO 2 mg BID NATY Administration Famotidine 10 mg 05/23/22 10:00 Famotidine 20 Mg/2 Ml Inj IV BID [facility] Fluticasone Propionate 50 mcg 05/19/22 14:00 05/22/22 10:01 Fluticasone Propionate Nasal [place] 16 Gm NS 50 mcg QDAY NATY Administration Furosemide 40 mg 05/23/22 18:00 Furosemide 40 Mg Tab PO 0600,1800 [facility] Hydralazine HCl 100 mg 05/20/22 20:00 05/22/22 20:55 Hydralazine 100 Mg Tab PO 100 mg TID NATY Administration Hydralazine HCl 10 mg 05/23/22 01:42 Hydralazine 20 Mg/1 Ml Inj IV Q6HR PRN Blood Pressure Insulin Human Lispro 0 unit 05/22/22 22:00 05/22/22 22:31 Insulin Lispro 100 Unit/Ml SUB-Q Not Given ACHS [facility] Protocol Metoprolol Tartrate 12.5 mg 05/18/22 13:00 05/22/22 22:30 Metoprolol Tartrate 25 Mg Tab PO 12.5 mg BID [facility] Administration Nifedipine 60 mg 05/19/22 11:00 05/22/22 22:30 Nifedipine Xl 60 Mg Tab PO 60 mg Q12HR [facility] Administration Ondansetron HCl 4 mg 05/23/22 08:00 Ondansetron 4 Mg/2 Ml Inj IV Q4H PRN Nausea And Vomiting Oxycodone/Acetaminophen 1 tab 05/19/22 15:34 05/22/22 15:17 Oxycodone /Acetaminophen 5-325mg Tab PO 1 tab Q8H PRN Administration Pain, Moderate (4-6) Oxymetazoline HCl 2 spray 05/23/22 08:00 Oxymetazoline 0.05% Nasal [place] NS Q12H PRN Nasal Congestion Sodium Chloride 10 ml 05/18/22 22:00 05/22/22 22:31 Sodium Chloride 0.9% 10 Ml Flush Syringe IV 10 ml BID NATY Administration Sodium Chloride 10 ml 05/18/22 12:30 Sodium Chloride 0.9% 10 Ml Flush Syringe IV PRN PRN LINE FLUSH Tizanidine HCl 4 mg 05/19/22 12:42 05/19/22 21:30 Tizanidine Tab 4 Mg Tab PO 4 mg BID PRN Administration Muscle Spasm
[2022-05-23] MEDS: CETIRIZINE 10 MG TAB PO SCH (12:16)
[2022-05-23] MEDS: METOPROLOL TARTRATE 25 MG TAB PO SCH ×2 (12:17→21:19)
[2022-05-23] MEDS: NIFEdipine XL 60 MG TAB PO SCH ×2 (12:18→21:19)
[2022-05-23] MEDS: FAMOTIDINE 20 MG/2 ML INJ IV SCH ×2 (12:18→21:16)
[2022-05-23] MEDS: FLUTICASONE PROPIONATE NASAL SPRAY 16 GM NS SCH (12:19)
[2022-05-23] MEDS: FUROSEMIDE 40 MG TAB PO SCH (14:17)
[2022-05-23] MEDS: oxyCODONE /ACETAMINOPHEN 5-325MG TAB PO PRN (16:23)
[2022-05-23] MEDS: ONDANSETRON 4 MG/2 ML INJ IV PRN (16:24)
--- NOTE | 2022-05-23 17:57 | Progress Note ---
Assessment and Plan - Patient Problems (1) Uncontrolled hypertension Current Visit: Yes Status: Acute Plan to address problem: Patient presented with severe uncontrolled hypertension with systolic blood pressures at 226. BP control is much better improved on Procardia XL 60 mg twice daily and doxazosin 2 mg twice daily. Continue this regimen on discharge. (2) Congestive heart failure Current Visit: Yes Status: Acute Plan to address problem: Congestive heart failure fluid overload is likely diastolic heart failure in the setting of persistent, severe uncontrolled hypertension. We will aggressively control blood pressure and continue intravenous diuretics. I have advised patient on a strict low-salt diet. Stable for cardiac discharge on current blood pressure regimen as well as diuretics, she has a thallium stress test already scheduled with her primary marketing technology specialist Dr. Prado. Subjective Date of service: 05/23/22 Principal diagnosis: Diastolic heart failure Interval history: Patient looks and feels well, no cardiac complaints. Objective Vital Signs Temp Pulse Resp Resp BP Pulse Ox 05/23/22 15:41 98.7 F 81 16 143/71 97 05/23/22 11:44 98.9 F 84 18 152/68 94 05/23/22 10:00 100 05/23/22 08:19 94 05/23/22 05:37 98.5 F 96 H 18 129/61 97 05/22/22 23:33 95 05/22/22 22:30 107 H 191/80 05/22/22 22:28 107 H 18 191/80 93 05/22/22 22:00 18 17 100 05/22/22 21:08 99.3 F 120 H 19 150/70 100 - Physical Examination General: No Apparent Distress HEENT: Positive: PERRL Neck: Positive: neck supple Cardiac: Positive: Reg Rate and Rhythm Lungs: Positive: clear to auscultation Neuro: Positive: Grossly Intact Abdomen: Positive: Soft Skin: Positive: Clear Extremities: Absent: edema - Labs and Meds Cardiac Enzymes 05/23/22 Range/Units 06:07 AST 15 (5-40) units/L CBC 05/23/22 Range/Units 06:07 WBC 6.6 (4.5-11.0) K/mm3 RBC 3.03 L (3.65-5.03) M/mm3 Hgb 7.8 L (10.1-14.3) gm/dl Hct 23.1 L (30.3-42.9) % Plt Count 277 (140-440) K/mm3 Comprehensive Metabolic Panel 05/23/22 05/23/22 Range/Units 06:07 06:07 Sodium 138 (137-145) mmol/L Potassium 4.1 (3.6-5.0) mmol/L Chloride 101.8 (98-107) mmol/L Carbon Dioxide 24 (22-30) mmol/L BUN 38 H (7-17) mg/dL Creatinine 4.0 H (0.6-1.2) mg/dL Glucose 161 H (65-100) mg/dL Calcium 8.8 (8.4-10.2) mg/dL Direct Bilirubin < 0.2 (0-0.2) mg/dL Indirect Bilirubin 0.0 mg/dL AST 15 (5-40) units/L ALT 11 (7-56) units/L Alkaline Phosphatase 99 (35-129) units/L Total Protein 5.2 L (6.3-8.2) g/dL Albumin 2.9 L (3.9-5) g/dL
[2022-05-23] MEDS ORDERED: FUROSEMIDE 40 MG TAB PO SCH (18:00)
[2022-05-23] MEDS ORDERED: MORPHINE 2 MG/1 ML INJ IV ONE ×2 (18:33→21:10)
[2022-05-23] MEDS ORDERED: METOCLOPRAMIDE 10 MG/2 ML INJ IV PRN (18:34)
--- NOTE | 2022-05-23 20:29 | Cat Scan Report ---
CT ABDOMEN AND PELVIS WITHOUT CONTRAST INDICATION / CLINICAL INFORMATION: L Flank area and abd pain.. TECHNIQUE: Axial CT images were obtained through the abdomen and pelvis without IV contrast. All CT scans at [facility] are performed using CT dose reduction for ALARA by means of automated exposure control. COMPARISON: CT abdomen and pelvis without contrast from 04/30/2022. FINDINGS: LOWER CHEST: There are trace pleural effusions without other significant abnormalities. LIVER: No significant abnormality. GALLBLADDER: Surgically absent. BILE DUCTS: No significant abnormality. PANCREAS: No significant abnormality. SPLEEN: No significant abnormality. ADRENALS: No significant abnormality. RIGHT KIDNEY/URETER: No significant abnormality. LEFT KIDNEY/URETER: No significant abnormality. STOMACH/SMALL BOWEL: Previously seen mildly thickened small bowel loops along the mid abdomen have re solved. A previously questioned foreign body along the mid small bowel is no longer identified. No ne w significant abnormality. COLON: No significant abnormality. APPENDIX: No significant abnormality. PERITONEUM: No free fluid. No free air. No fluid collection. Previously seen increased attenuation of the mesenteric fat has improved. LYMPH NODES: No significant adenopathy. VASCULATURE: No acute findings. There is similar mild atherosclerosis. URINARY BLADDER: No significant abnormality. REPRODUCTIVE ORGANS: No significant abnormality. Prior hysterectomy. ADDITIONAL FINDINGS: None. BONES: No acute findings. No significant interval changes. IMPRESSION: 1. No new acute abnormality to explain the patient's left flank/abdominal pain. 2. Additional findings as above. Signer Name: Franki Lezama MD Signed: 05/23/2022 8:25 PM Workstation Name: [id number]
[2022-05-23] MEDS: INSULIN LISPRO 100 UNIT/ML SUB-Q SCH (21:21)
[2022-05-24 06:22] LABS: Hematocrit 21.7 % (30.3-42.9); Hemoglobin 7.6 gm/dl (10.1-14.3); Mean Corpuscular HGB Conc 35 % (30-34); Mean Corpuscular Volume 75 fl (79-97); Platelet Count 274 K/mm3 (140-440); Red Cell Distribution Width 14.1 % (13.2-15.2)
[2022-05-24 06:37] LABS: Calcium 8.7 mg/dL (8.4-10.2)
--- NOTE | 2022-05-24 07:33 | Progress Note ---
Assessment and Plan Assessment and plan: 52 YO Female with Obesity Hypoventilation Syndrome, HTN, DM, Cardiorenal Syndrome, HLD, OA, GERD presents to ED for evaluation. Patient reports "I cannot breathe". Patient states that over the past 1 week she had experienced shortness of breath and chest discomfort with worsening symptoms over the past 2 days. Patient acknowledges decreased exercise tolerance, orthopnea, paroxysmal nocturnal dyspnea, decreased exercise tolerance, leg edema, and increased blood pressure. Patient also acknowledges 8 pound weight gain over the past 1 week. Patient transported to [facility] via private vehicle for further care and evaluation of the aforementioned symptoms. The patient was seen and evaluated in the em ergency department. All lab and imaging studies reviewed. Patient found to have a blood pressure of 241/112 mmHg which is consistent with hypertensive emergency as well as clinical symptoms consistent with CHF, EDI with ATN. Patient admitted to telemetry and initiated on CHF protocol as well as IV antihypertensive therapy. Patient denies fever, chills, chest pain, palpitation, productive cough, skin rash, recent contact, known exposure to COVID-19. Prior admission on 01/01/2022 reviewed. All medication listed at time of admission been reconciled. Advanced care planning conducted in ED. Hospital Course: 05/20: Blood pressure still not well controlled. Cardiology has added Procardia 60 mg twice daily and doxazosin 2 mg twice daily. I have added hydralazine 100 mg 3 times daily. Creatinine continues to worsen currently 2.9. May need to consider holding diuretics. will follow nephrology input. 05/21: Vital signs more control. Crackles on lung exam. Lasix dose increased to 80 mg po bid. Strict I/O to monitor output. BMP ordered for AM still pending. Continue to monitor Cr on serial bmp. 05/22: Patient seen and examined, Still with shortness of breath, Continue flonase, will check orthostatic, continue with diuresis, await Nephrology and Cardiology re-evaluation. Encouraged out of bed to chair. Outpatient Sleep study 05/23: Patient experienced an episode of nausea with vomiting x1. While nephrology recommended Lasix 80 mg p.o. twice daily patient has been on IV Lasix 40 which is equivalent to the 80. Nevertheless we will check LFTs at this time and also her lipase level. Will obtain chest x-ray in respect to the persistent shortness of breath. I ordered orthostatics yesterday we will await that study. We will also check an ABG. On reexamination creatinine did come back significantly elevated LFTs are within normal limits. Will change Lasix to 40 p.o. twice daily instead of IV twice daily. She also does have low iron which likely lends to anemia of chronic renal disease we will start some iron supplementation. 05/24: Complaining of continued abd pain and nausea. Patient has a history of peptic ulcer disease in the past as well as H. Pylori (treated). She follows with gastroenterology OP. Added protonix 40 mg po bid and pepcid 40 mg qday. If improvement by evening, will likely d/c patient. Otherwise renal function has improved. Creatinine today 3.7. Assessment and Plan: (1) Acute diastolic heart failure Current Visit: Yes Status: Acute Qualifiers: Heart failure type: systolic Heart failure chronicity: acute on chronic Qualified Code(s): I50.23 - Acute on chronic systolic (congestive) heart failure Plan to address problem: Strict I/O, monitoring E family weight, low reduction, blood pressure control, diuresis, cardiology team consulted. Echocardiogram : EF 50-55%. Diuresis with lasix GDMT (2) Hypertensive emergency Current Visit: Yes Status: Acute Plan to address problem: IV antihypertensive therapy, monitor blood pressure every shift, continue medical management, telemetry monitoring. - procardia, doxazozin, hydralazine, lasix (3) Acute kidney injury (EDI) with acute tubular necrosis (ATN) (4) Cardiorenal syndrome - Renal ultrasound: negative for obstruction - urine electrolytes - lasix - strict I/O's. - serial bmp. - nephrology following. (5) Obesity hypoventilation syndrome Balanced diet, increase physical activity discharge, outpatient pulmonary follow-up for sleep study (6) Hyperlipidemia Current Visit: Yes Status: Acute Qualifiers: Hyperlipidemia type: mixed hyperlipidemia Qualified Code(s): E78.2 - Mixed hyperlipidemia Plan to address problem: Statin therapy, lipid panel, supportive care. (7) GERD (gastroesophageal reflux disease)/gastroenteritis Current Visit: Yes Status: Acute Plan to address problem: -History of gastric ulcer and H. pylori that was treated in the past, follows with gastroenterology as an outpatient -CT abdomen pelvis negative for acute findings. -Initiated on Protonix 40 mg p.o. twice daily and Pepcid 40 mg daily -If no improvement may consider H. pylori testing as well as gastroenterology evaluation (8) Metabolic syndrome Current Visit: Yes Status: Acute Plan to address problem: Balanced diet, risk factor reduction, weight reduction, meal planning. Low- cholesterol diet (9) epistaxis (10) iron deficiency anemia with underlying chronic renal disease (11) DVT prophylaxis Current Visit: Yes Status: Acute Plan to address problem: SCD to bilateral lower extremities while in bed (12) Advance care planning Current Visit: Yes Status: Acute Plan to address problem: Disease education data, care plan discussed, diagnoses discussed, prognosis discussed, patient is full code. Patient acknowledges understanding agreement with care plan, +30 minutes. (13) Preventative health care Current Visit: Yes Status: Acute Plan to address problem: Patient counseled regarding meal planning, increase physical activity at discharge, weight reduction, outpatient follow-up with primary care physician for all age and risk factor appropriate screening test. +30 minutes. Time spent: +35 min CPT 05323 History Interval history: Seen and evaluated on bedside encounter. Complaining of abdominal pain and nausea. Describes abdominal pain is epigastric pain with burning sensation similar to what she had experienced when she had a gastric ulcer several years back. Hospitalist Physical - Physical exam Narrative exam: Physical Exam: General appearance: well-developed, obese, appears stated age, no distress HEENT: atraumatic, MESSI, no icterus Neck: trachea midline Respiratory: bilateral rales heard Heart: S1S2, regular, no murmur Abdomen: soft, obese, bowel sounds heard, NT Integumentary: no rash on the inspected area Neurologic: AO, able to move extremities Ext: 1+ Ext and dependent edema - Constitutional Vitals: Temp Pulse Resp BP Pulse Ox 99.1 F 86 16 137/67 98 05/24/22 05:00 05/24/22 05:00 05/24/22 05:00 05/24/22 05:00 05/24/22 05:00 General appearance: Present: no acute distress HEART Score - HEART Score Troponin: Troponin T 0.020 ng/mL (0.00-0.029) 05/18/22 12:09 Results - Labs CBC & Chem 7: 05/24/22 06:01 05/24/22 06:01 Labs: Laboratory Last Values WBC 5.9 K/mm3 (4.5-11.0) 05/24/22 06:01 RBC 2.90 M/mm3 (3.65-5.03) L 05/24/22 06:01 Hgb 7.6 gm/dl (10.1-14.3) L 05/24/22 06:01 Hct 21.7 % (30.3-42.9) L 05/24/22 06:01 MCV 75 fl (79-97) L 05/24/22 06:01 MCH 26 pg (28-32) L 05/24/22 06:01 MCHC 35 % (30-34) H 05/24/22 06:01 RDW 14.1 % (13.2-15.2) 05/24/22 06:01 Plt Count 274 K/mm3 (140-440) 05/24/22 06:01 Lymph % (Auto) 21.9 % (13.4-35.0) 05/22/22 05:14 [place] % (Auto) 6.3 % (0.0-7.3) 05/22/22 05:14 Eos % (Auto) 2.4 % (0.0-4.3) 05/22/22 05:14 Baso % (Auto) 0.5 % (0.0-1.8) 05/22/22 05:14 Lymph # (Auto) 1.3 K/mm3 (1.2-5.4) 05/22/22 05:14 [place] # (Auto) 0.4 K/mm3 (0.0-0.8) 05/22/22 05:14 Eos # (Auto) 0.1 K/mm3 (0.0-0.4) 05/22/22 05:14 Baso # (Auto) 0.0 K/mm3 (0.0-0.1) 05/22/22 05:14 Seg Neutrophils % 68.9 % (40.0-70.0) 05/22/22 05:14 Seg Neutrophils # 4.1 K/mm3 (1.8-7.7) 05/22/22 05:14 Sodium 139 mmol/L (137-145) 05/24/22 06:01 Potassium 4.4 mmol/L (3.6-5.0) 05/24/22 06:01 Chloride 103.2 mmol/L (98-107) 05/24/22 06:01 Carbon Dioxide 25 mmol/L (22-30) 05/24/22 06:01 Anion Gap 15 mmol/L 05/24/22 06:01 BUN 40 mg/dL (7-17) H 05/24/22 06:01 Creatinine 3.7 mg/dL (0.6-1.2) H 05/24/22 06:01 Estimated GFR 13 ml/min 05/24/22 06:01 BUN/Creatinine Ratio 11 % 05/24/22 06:01 Glucose 156 mg/dL (65-100) H 05/24/22 06:01 POC Glucose 214 mg/dL (70-105) H 05/23/22 20:58 Calcium 8.7 mg/dL (8.4-10.2) 05/24/22 06:01 Magnesium 2.10 mg/dL (1.7-2.3) 05/18/22 12:09 Iron 24 ug/dL (37-170) L 05/23/22 06:07 TIBC 224 mcg/dL (250-450) L 05/23/22 06:07 Total Bilirubin 0.20 mg/dL (0.1-1.2) 05/23/22 06:07 Direct Bilirubin < 0.2 mg/dL (0-0.2) 05/23/22 06:07 Indirect Bilirubin 0.0 mg/dL 05/23/22 06:07 AST 15 units/L (5-40) 05/23/22 06:07 ALT 11 units/L (7-56) 05/23/22 06:07 Alkaline Phosphatase 99 units/L (35-129) 05/23/22 06:07 Troponin T 0.020 ng/mL (0.00-0.029) 05/18/22 12:09 NT-Pro-B Natriuret Pep 6190 pg/mL (0-900) H 05/18/22 04:50 Total Protein 5.2 g/dL (6.3-8.2) L 05/23/22 06:07 Albumin 2.9 g/dL (3.9-5) L 05/23/22 06:07 Albumin/Globulin Ratio 1.3 % 05/23/22 06:07 Lipase 20 units/L (13-60) 05/23/22 06:07 TSH 2.280 mlU/mL (0.270-4.200) 05/18/22 12:09 Free T4 1.08 ng/dL (0.76-1.46) 05/18/22 12:09 Urine Creatinine 74.1 mg/dL (0.1-20.0) H 05/19/22 15:45 Urine Sodium 83 mmol/L 05/19/22 15:45 Urine Total Protein 97 mg/dL (5-11.8) H 05/19/22 15:45 Cruz/IV: Voiding Method Toilet Active Medications - Current Medications Current Medications: Generic Name Dose Route Start Last Admin Trade Name Freq PRN Reason Stop Dose Admin Acetaminophen 650 mg 05/18/22 12:30 05/20/22 22:07 Acetaminophen 325 Mg Tab PO 650 mg Q4H PRN Administration Pain MILD(1-3)/Fever >100.5/LUQUE Albuterol 2.5 mg 05/18/22 12:00 Albuterol 2.5 Mg/3 Ml Nebu IH Q4HRT PRN Shortness Of Breath Cetirizine HCl 10 mg 05/19/22 14:00 05/23/22 12:16 Cetirizine 10 Mg Tab PO 10 mg DAILY NATY Administration Famotidine 10 mg 05/23/22 10:00 05/23/22 21:16 Famotidine 20 Mg/2 Ml Inj IV 10 mg BID NATY Administration Fluticasone Propionate 50 mcg 05/19/22 14:00 05/23/22 12:19 Fluticasone Propionate Nasal [place] 16 Gm NS 50 mcg QDAY NATY Administration Furosemide 40 mg 05/23/22 12:00 05/23/22 14:17 Furosemide 40 Mg Tab PO 40 mg DAILY NATY Administration Hydralazine HCl 100 mg 05/20/22 20:00 05/23/22 20:48 Hydralazine 100 Mg Tab PO 100 mg TID NATY Administration Hydralazine HCl 10 mg 05/23/22 01:42 Hydralazine 20 Mg/1 Ml Inj IV Q6HR PRN Blood Pressure Insulin Human Lispro 0 unit 05/22/22 22:00 05/23/22 21:21 Insulin Lispro 100 Unit/Ml SUB-Q 4 unit ACHS NATY Administration Protocol Metoclopramide HCl 5 mg 05/23/22 18:34 Metoclopramide 10 Mg/2 Ml Inj IV ACHS PRN Nausea And Vomiting Metoprolol Tartrate 12.5 mg 05/18/22 13:00 05/23/22 21:19 Metoprolol Tartrate 25 Mg Tab PO 12.5 mg BID NATY Administration Nifedipine 60 mg 05/19/22 11:00 05/23/22 21:19 Nifedipine Xl 60 Mg Tab PO 60 mg Q12HR NATY Administration Ondansetron HCl 4 mg 05/23/22 08:00 05/23/22 16:24 Ondansetron 4 Mg/2 Ml Inj IV 4 mg Q4H PRN Administration Nausea And Vomiting Oxycodone/Acetaminophen 1 tab 05/19/22 15:34 05/23/22 16:23 Oxycodone /Acetaminophen 5-325mg Tab PO 1 tab Q8H PRN Administration Pain, Moderate (4-6) Oxymetazoline HCl 2 spray 05/23/22 08:00 Oxymetazoline 0.05% Nasal [place] NS Q12H PRN Nasal Congestion Sodium Chloride 10 ml 05/18/22 22:00 05/23/22 21:18 Sodium Chloride 0.9% 10 Ml Flush Syringe IV 10 ml BID NATY Administration Sodium Chloride 10 ml 05/18/22 12:30 Sodium Chloride 0.9% 10 Ml Flush Syringe IV PRN PRN LINE FLUSH Tizanidine HCl 4 mg 05/19/22 12:42 05/19/22 21:30 Tizanidine Tab 4 Mg Tab PO 4 mg BID PRN Administration Muscle Spasm
[2022-05-24] MEDS: FAMOTIDINE 20 MG/2 ML INJ IV SCH (09:31)
[2022-05-24] MEDS: CETIRIZINE 10 MG TAB PO SCH (09:31)
[2022-05-24] MEDS: METOPROLOL TARTRATE 25 MG TAB PO SCH (09:31)
[2022-05-24] MEDS: hydrALAZINE 100 MG TAB PO SCH ×2 (09:32→13:26)
[2022-05-24] MEDS: FUROSEMIDE 40 MG TAB PO SCH (09:32)
[2022-05-24] MEDS: INSULIN LISPRO 100 UNIT/ML SUB-Q SCH ×5 (09:33→16:56)
[2022-05-24] MEDS: FLUTICASONE PROPIONATE NASAL SPRAY 16 GM NS SCH (09:36)
[2022-05-24] MEDS: DOXAZOSIN 1 MG TAB PO SCH (09:44)
[2022-05-24] MEDS: NIFEdipine XL 60 MG TAB PO SCH (09:44)
[2022-05-24] MEDS: ONDANSETRON 4 MG/2 ML INJ IV PRN (09:44)
--- NOTE | 2022-05-24 11:10 | Progress Note ---
Assessment and Plan - Patient Problems (1) Uncontrolled hypertension Current Visit: Yes Status: Acute Plan to address problem: Patient presented with severe uncontrolled hypertension with systolic blood pressures at 226. BP control is much better improved on Procardia XL 60 mg twice daily and doxazosin 2 mg twice daily. Continue this regimen on discharge. (2) Congestive heart failure Current Visit: Yes Status: Acute Plan to address problem: Congestive heart failure fluid overload is likely diastolic heart failure in the setting of persistent, severe uncontrolled hypertension. We will aggressively control blood pressure and continue intravenous diuretics. I have advised patient on a strict low-salt diet. Stable for cardiac discharge on current blood pressure regimen as well as diuretics, she has a thallium stress test already scheduled with her primary supervisor agricultural education Dr. Prado. Subjective Date of service: 05/24/22 Principal diagnosis: Diastolic heart failure Interval history: Patient looks and feels well, no cardiac complaints. No new cardiac events reported. Objective Vital Signs Temp Pulse Resp Resp BP Pulse Ox 05/24/22 11:00 97 05/24/22 09:31 88 05/24/22 05:00 99.1 F 86 16 137/67 98 05/23/22 22:00 18 18 99 05/23/22 21:50 17 05/23/22 21:20 18 05/23/22 21:19 92 H 171/66 05/23/22 20:27 99.1 F 92 H 16 171/66 94 05/23/22 15:41 98.7 F 81 16 143/71 97 05/23/22 11:44 98.9 F 84 18 152/68 94 - Physical Examination General: No Apparent Distress HEENT: Positive: PERRL Neck: Positive: neck supple Cardiac: Positive: Reg Rate and Rhythm Lungs: Positive: Decreased Breath Sounds Neuro: Positive: Grossly Intact Abdomen: Positive: Soft Skin: Positive: Clear Extremities: Absent: edema - Labs and Meds CBC 05/24/22 Range/Units 06:01 WBC 5.9 (4.5-11.0) K/mm3 RBC 2.90 L (3.65-5.03) M/mm3 Hgb 7.6 L (10.1-14.3) gm/dl Hct 21.7 L (30.3-42.9) % Plt Count 274 (140-440) K/mm3 Comprehensive Metabolic Panel 09/26/22 Range/Units 06:01 Sodium 139 (137-145) mmol/L Potassium 4.4 (3.6-5.0) mmol/L Chloride 103.2 (98-107) mmol/L Carbon Dioxide 25 (22-30) mmol/L BUN 40 H (7-17) mg/dL Creatinine 3.7 H (0.6-1.2) mg/dL Glucose 156 H (65-100) mg/dL Calcium 8.7 (8.4-10.2) mg/dL
[2022-05-24 12:31] VITALS: BP 137/54
[2022-05-24] MEDS ORDERED: FAMOTIDINE 20 MG TAB PO SCH (13:00)
[2022-05-24] MEDS: PANTOPRAZOLE 40 MG TAB PO SCH ×2 (13:26→16:56)
--- NOTE | 2022-05-24 13:30 | Discharge Summary ---
Providers - Providers Date of Admission: 05/18/22 11:42 Date of discharge: 05/25/22 Attending physician: MELIDA CASH MD 05/18/22 11:40 Consult to Physician [CONS] Routine Comment: Consulting Provider: BENJAMIN GRIMM Physician Instructions: Reason For Exam: chf 05/18/22 19:34 Consult to Physician [CONS] Routine Comment: pt known to him Consulting Provider: TRINIDAD CRUZ Physician Instructions: Reason For Exam: edi Primary care physician: ARON MATIAS Hospitalization Reason for admission: short of breath Condition: Stable Hospital course: Assessment and plan: 52 YO Female with Obesity Hypoventilation Syndrome, HTN, DM, Cardiorenal Syndrome, HLD, OA, GERD presents to ED for evaluation. Patient reports "I cannot breathe". Patient states that over the past 1 week she had experienced shortness of breath and chest discomfort with worsening symptoms over the past 2 days. Patient acknowledges decreased exercise tolerance, orthopnea, paroxysmal nocturnal dyspnea, decreased exercise tolerance, leg edema, and increased blood pressure. Patient also acknowledges 8 pound weight gain over the past 1 week. Patient transported to [facility] via private vehicle for further care and evaluation of the aforementioned symptoms. The patient was seen and evaluated in the emergency department. All lab and imaging studies reviewed. Patient found to have a blood pressure of 241/112 mmHg which is consistent with hypertensive emergency as well as clinical symptoms consistent with CHF, EDI with ATN. Patient admitted to telemetry and initiated on CHF protocol as well as IV antihypertensive therapy. Patient denies fever, chills, chest pain, palpitation, productive cough, skin rash, recent contact, known exposure to COVID-19. Prior admission on 01/01/2022 reviewed. All medication listed at time of admission been reconciled. Advanced care planning conducted in ED. Hospital Course: 05/20: Blood pressure still not well controlled. Cardiology has added Procardia 60 mg twice daily and doxazosin 2 mg twice daily. I have added hydralazine 100 mg 3 times daily. Creatinine continues to worsen currently 2.9. May need to consider holding diuretics. will follow nephrology input. 05/21: Vital signs more control. Crackles on lung exam. Lasix dose increased to 80 mg po bid. Strict I/O to monitor output. BMP ordered for AM still pending. Continue to monitor Cr on serial bmp. 05/22: Patient seen and examined, Still with shortness of breath, Continue flonase, will check orthostatic, continue with diuresis, await Nephrology and Cardiology re-evaluation. Encouraged out of bed to chair. Outpatient Sleep study 05/23: Patient experienced an episode of nausea with vomiting x1. While nephrology recommended Lasix 80 mg p.o. twice daily patient has been on IV Lasix 40 which is equivalent to the 80. Nevertheless we will check LFTs at this time and also her lipase level. Will obtain chest x-ray in respect to the persistent shortness of breath. I ordered orthostatics yesterday we will await that study. We will also check an ABG. On reexamination creatinine did come back significantly elevated LFTs are within normal limits. Will change Lasix to 40 p.o. twice daily instead of IV twice daily. She also does have low iron which likely lends to anemia of chronic renal disease we will start some iron supplementation. 05/24: Complaining of continued abd pain and nausea. Patient has a history of peptic ulcer disease in the past as well as H. Pylori (treated). She follows with gastroenterology OP. Added protonix 40 mg po bid and pepcid 40 mg qday. If improvement by evening, will likely d/c patient. Otherwise renal function has im proved. Creatinine today 3.7. Assessment and Plan: (1) Acute diastolic heart failure Current Visit: Yes Status: Acute Qualifiers: Heart failure type: systolic Heart failure chronicity: acute on chronic Qualified Code(s): I50.23 - Acute on chronic systolic (congestive) heart failure Plan to address problem: Strict I/O, monitoring E family weight, low reduction, blood pressure control, diuresis, cardiology team consulted. Echocardiogram : EF 50-55%. Diuresis with lasix GDMT (2) Hypertensive emergency Current Visit: Yes Status: Acute Plan to address problem: IV antihypertensive therapy, monitor blood pressure every shift, continue medical management, telemetry monitoring. - procardia, doxazozin, hydralazine, lasix (3) Acute kidney injury (EDI) with acute tubular necrosis (ATN) (4) Cardiorenal syndrome - Renal ultrasound: negative for obstruction - urine electrolytes - lasix - strict I/O's. - serial bmp. - nephrology following. (5) Obesity hypoventilation syndrome Balanced diet, increase physical activity discharge, outpatient pulmonary foll ow-up for sleep study (6) Hyperlipidemia Current Visit: Yes Status: Acute Qualifiers: Hyperlipidemia type: mixed hyperlipidemia Qualified Code(s): E78.2 - Mixed hyperlipidemia Plan to address problem: Statin therapy, lipid panel, supportive care. (7) GERD (gastroesophageal reflux disease)/gastroenteritis Current Visit: Yes Status: Acute Plan to address problem: -History of gastric ulcer and H. pylori that was treated in the past, follows with gastroenterology as an outpatient -CT abdomen pelvis negative for acute findings. -Initiated on Protonix 40 mg p.o. twice daily and Pepcid 40 mg daily -If no improvement may consider H. pylori testing as well as gastroenterology evaluation (8) Metabolic syndrome Current Visit: Yes Status: Acute Plan to address problem: Balanced diet, risk factor reduction, weight reduction, meal planning. Low-cholesterol diet (9) epistaxis (10) iron deficiency anemia with underlying chronic renal disease (11) DVT prophylaxis Current Visit: Yes Status: Acute Plan to address problem: SCD to bilateral lower extremities while in bed (12) Advance care planning Current Visit: Yes Status: Acute Plan to address problem: Disease education data, care plan discussed, diagnoses discussed, prognosis discussed, patient is full code. Patient acknowledges understanding agreement with care plan, +30 minutes. (13) Preventative health care Current Visit: Yes Status: Acute Plan to address problem: Patient counseled regarding meal planning, increase physical activity at discharge, weight reduction, outpatient follow-up with primary care physician for all age and risk factor appropriate screening test. +30 minutes. Disposition: 01 HOME / SELF CARE / HOMELESS Final Discharge Diagnosis (Prints w/discharge instructions): acute exacerbation of diastolic heart failure Core Measure Documentation - Palliative Care Palliative Care/ Comfort Measures: Not Applicable - Core Measures Any of the following diagnoses?: heart failure - Heart Failure Discharge Requirements SALLY/ARB for LVSD if EF <40%: No Reason for no SALLY/ARB: Renal impairment Beta dawna at discharge: Yes Exam - Physical Exam Narrative exam: Physical Exam: General appearance: well-developed, obese, appears stated age, no distress HEENT: atraumatic, MESSI, no icterus Neck: trachea midline Respiratory: bilateral rales heard Heart: S1S2, regular, no murmur Abdomen: soft, obese, bowel sounds heard, NT Integumentary: no rash on the inspected area Neurologic: AO, able to move extremities Ext: 1+ Ext and dependent edema - Constitutional Vitals: Temp Pulse Resp BP Pulse Ox 98.0 F 82 18 137/54 93 05/24/22 11:19 05/24/22 11:19 05/24/22 11:19 05/24/22 11:19 05/24/22 11:19 Plan Follow up with: ARON MATIAS MD [Primary Care Provider] - 3-5 Days Prescriptions: Terazosin HCl 5 mg PO QHS 30 Days #30 cap Furosemide [Lasix TAB] 40 mg PO DAILY 30 Days #30 tablet Metoprolol [Lopressor TAB] 50 mg PO BID 30 Days #60 tab NIFEdipine [Nifedipine ER] 90 mg PO DAILY 30 Days #30 tab Famotidine [Pepcid] 40 mg PO QDAY 30 Days #30 tablet Pantoprazole [Protonix TAB] 40 mg PO BIDAC 30 Days #60 tablet Metoclopramide [Reglan TAB] 10 mg PO QID PRN #30 tablet PRN Reason: Nausea
--- NOTE | 2022-05-24 16:34 | Progress Note ---
Assessment and Plan 1. Acute kidney injury: EDI superimposed on CKD. Renal US negative for hydro/stone. Monitor renal function. Creatinine level is slightly better today. Renal prognosis is guarded. Avoid nephrotoxic agents. Meds dosage based on GFR. 2. FEN: Volume overload, on Lasix. Counseled to limit salt and fluid intake. Replete lytes as needed. Monitor lytes and volume status. 3. HFpEF, POA: Echo with normal EF. Followed by Cards. 4. Hypertensive urgency: Volume control. Adjust meds as appropriate. BP is better now. 5. DM: Monitor. 6. Microcytic anemia, POA: Trend. F/u with me in 1 week. Subjective: Patient was seen and examined at the bedside. No new complaint. Examination: General appearance: well-developed, obese, appears stated age, no distress HEENT: atraumatic, MESSI, no icterus Neck: trachea midline Respiratory: ctab Heart: S1S2, regular, no murmur Abdomen: soft, obese, bowel sounds heard, NT Integumentary: no rash on the inspected area Neurologic: AO, able to move extremities Ext: no edema Subjective Date of service: 05/24/22 Principal diagnosis: Diastolic heart failure Objective - Vital Signs Vital signs: Vital Signs - 12hr 05/24/22 05/24/22 05/24/22 05:00 09:31 11:00 Temperature 99.1 F Pulse Rate 86 88 Respiratory 16 Rate Blood Pressure 137/67 O2 Sat by Pulse 98 97 Oximetry 05/24/22 11:19 Temperature 98.0 F Pulse Rate 82 Respiratory 18 Rate Blood Pressure 137/54 O2 Sat by Pulse 93 Oximetry - Lab 05/24/22 06:01 05/24/22 06:01 Most recent lab results Calcium 8.7 mg/dL (8.4-10.2) 05/24/22 06:01 Magnesium 2.10 mg/dL (1.7-2.3) 05/18/22 12:09 Urine Creatinine 74.1 mg/dL (0.1-20.0) H 05/19/22 15:45 Urine Sodium 83 mmol/L 05/19/22 15:45 Urine Total Protein 97 mg/dL (5-11.8) H 05/19/22 15:45 Medications & Allergies - Medications Allergies/Adverse Reactions: Allergies Penicillins Allergy (Verified 05/17/22 14:48) Itching Home Medications: Home Medications Medication Instructions Recorded Confirmed Last Taken Type AtorvaSTATin [Lipitor] 80 mg PO DAILY 11/13/21 05/19/22 1 Day Ago History ~11/12/21 Insulin NPH Hum/Reg Insulin Hm 20 unit SQ BID 11/13/21 05/19/22 11/12/21 History [Humulin 70-30 Vial] amLODIPine 5 mg PO DAILY #30 tab 05/13/22 05/19/22 Unknown Rx Dicyclomine [Bentyl] 10 mg PO QID 05/19/22 05/19/22 Unknown History Polymyxin B Sulf/Trimethoprim 2 drop OP Q3H 05/19/22 05/19/22 Unknown History tiZANidine [Zanaflex 4mg TAB] 4 mg PO DAILY 05/19/22 05/19/22 Unknown History Famotidine [Pepcid] 40 mg PO QDAY 30 Days #30 tablet 05/24/22 Unknown Rx Furosemide [Lasix TAB] 40 mg PO DAILY 30 Days #30 tablet 05/24/22 Unknown Rx Metoclopramide [Reglan TAB] 10 mg PO QID PRN #30 tablet 05/24/22 Unknown Rx Metoprolol [Lopressor TAB] 50 mg PO BID 30 Days #60 tab 05/24/22 Unknown Rx NIFEdipine [Nifedipine ER] 90 mg PO DAILY 30 Days #30 tab 05/24/22 Unknown Rx Pantoprazole [Protonix TAB] 40 mg PO BIDAC 30 Days #60 tablet 05/24/22 Unknown Rx Terazosin HCl 5 mg PO QHS 30 Days #30 cap 05/24/22 Unknown Rx tiZANidine [Zanaflex 4mg TAB] 4 mg PO BID PRN tablet 05/24/22 Unknown Rx Active Medications: Generic Name Dose Route Start Last Admin Trade Name Freq PRN Reason Stop Dose Admin Acetaminophen 650 mg 05/18/22 12:30 05/20/22 22:07 Acetaminophen 325 Mg Tab PO 650 mg Q4H PRN Administration Pain MILD(1-3)/Fever >100.5/LUQUE Albuterol 2.5 mg 05/18/22 12:00 Albuterol 2.5 Mg/3 Ml Nebu IH Q4HRT PRN Shortness Of Breath Cetirizine HCl 10 mg 05/19/22 14:00 05/24/22 09:31 Cetirizine 10 Mg Tab PO 10 mg DAILY NATY Administration Famotidine 40 mg 05/24/22 13:00 05/24/22 13:26 Famotidine 20 Mg Tab PO 40 mg QDAY NATY Administration Fluticasone Propionate 50 mcg 05/19/22 14:00 05/24/22 09:36 Fluticasone Propionate Nasal [place] 16 Gm NS 50 mcg QDAY NATY Administration Furosemide 40 mg 05/23/22 12:00 05/24/22 09:32 Furosemide 40 Mg Tab PO 40 mg DAILY NATY Administration Hydralazine HCl 100 mg 05/20/22 20:00 05/24/22 13:26 Hydralazine 100 Mg Tab PO 100 mg TID NATY Administration Hydralazine HCl 10 mg 05/23/22 01:42 Hydralazine 20 Mg/1 Ml Inj IV Q6HR PRN Blood Pressure Insulin Human Lispro 0 unit 05/22/22 22:00 05/24/22 13:26 Insulin Lispro 100 Unit/Ml SUB-Q 2 unit ACHS NATY Administration Protocol Metoclopramide HCl 5 mg 05/23/22 18:34 Metoclopramide 10 Mg/2 Ml Inj IV ACHS PRN Nausea And Vomiting Metoprolol Tartrate 12.5 mg 05/18/22 13:00 05/24/22 09:31 Metoprolol Tartrate 25 Mg Tab PO 12.5 mg BID NATY Administration Nifedipine 60 mg 05/19/22 11:00 05/24/22 09:44 Nifedipine Xl 60 Mg Tab PO 60 mg Q12HR NATY Administration Ondansetron HCl 4 mg 05/23/22 08:00 05/24/22 09:44 Ondansetron 4 Mg/2 Ml Inj IV 4 mg Q4H PRN Administration Nausea And Vomiting Oxycodone/Acetaminophen 1 tab 05/19/22 15:34 05/23/22 16:23 Oxycodone /Acetaminophen 5-325mg Tab PO 1 tab Q8H PRN Administration Pain, Moderate (4-6) Oxymetazoline HCl 2 spray 05/23/22 08:00 Oxymetazoline 0.05% Nasal [place] NS Q12H PRN Nasal Congestion Pantoprazole Sodium 40 mg 05/24/22 12:20 05/24/22 13:26 Pantoprazole 40 Mg Tab PO 40 mg BIDAC NATY Administration Sodium Chloride 10 ml 05/18/22 22:00 05/24/22 09:33 Sodium Chloride 0.9% 10 Ml Flush Syringe IV 10 ml BID NATY Administration Sodium Chloride 10 ml 05/18/22 12:30 Sodium Chloride 0.9% 10 Ml Flush Syringe IV PRN PRN LINE FLUSH Tizanidine HCl 4 mg 05/19/22 12:42 05/19/22 21:30 Tizanidine Tab 4 Mg Tab PO 4 mg BID PRN Administration Muscle Spasm
[2022-05-24] MEDS ORDERED: FAMOTIDINE 10 MG TAB PO SCH (22:00)
== END 2022-05-24 17:55 | disposition home or self-care (01) | DRG 291 ==
LOC: ED 14:06 → 3A 05-18 11:42
PROVIDERS: ADMIT Internal Medicine; ATTEND Internal Medicine
DX: I13.0 Hypertensive heart and chronic kidney disease with heart failure and stage 1 through stage 4 chronic kidney disease, or unspecified chronic kidney disease (principal); N17.0 Acute kidney failure with tubular necrosis; I50.23 Acute on chronic systolic (congestive) heart failure; I16.1 Hypertensive emergency; E66.2 Morbid (severe) obesity with alveolar hypoventilation; E78.5 Hyperlipidemia, unspecified; K21.9 Gastro-esophageal reflux disease without esophagitis; E88.81 Metabolic syndrome and other insulin resistance; D64.9 Anemia, unspecified; D50.9 Iron deficiency anemia, unspecified; M19.90 Unspecified osteoarthritis, unspecified site; N18.4 Chronic kidney disease, stage 4 (severe); Z86.718 Personal history of other venous thrombosis and embolism; Z79.01 Long term (current) use of anticoagulants; Z88.0 Allergy status to penicillin
CPT/HCPCS: 36415; 71045; 71046; 74176; 76770; 80048; 80053; 80076; 82570; 82962; 83550; 83690; 83735; 83880; 84156; 84300; 84439; 84443; 84484; 85025; 85027; 93005; 93306; 94760; 96374; 99285; G0378; J3490; Q9967; C8929; J1815; J1940; J2270; J2405; J2765